=== PATIENT | male | born 1945 | race Caucasian/White ===

== ENCOUNTER → 2017-06-01 | Emergency (ER) | payer MEDICARE, OTHER ==
[~2017-06-01] VITALS: Ht 177.8 cm; Wt 113.4 kg
[~2017-06-01] MED LIST: ALBUTEROL2.5 MG/3 M INH; ASPIRIN EC81 MG PO; BELSOMRA5 MG PO; CEFPODOXIME PR200 MG PO; CIPRO500 MG PO; CONSTULOSE10 GM/15 M PO; FUROSEMIDE20 MG PO; GABAPENTIN300 MG PO; HYDROMORPHONE HC4 MG PO; K-TAB ER20 MEQ PO; LACTULOSE20 GM/30 M PO; LASIX40 MG PO; LEVAQUIN500 MG PO; MORPHINE SULFAT15 M1 PO; NORCO 5-325 TA1 EACH PO; OMEPRAZOLE20 MG PO; PHENTERMINE HCL15 MG PO; PHENTERMINE HCL30 MG PO; ROPINIROLE HC0.25 MG PO; SERTRALINE HCL25 MG PO; SPIRONOLACTONE100 MG PO; SPIRONOLACTONE25 MG PO; TIZANIDINE HCL2 M1 PO; TIZANIDINE HCL2 MG PO; TRAZODONE HCL100 MG PO; XIFAXAN550 MG PO
--- NOTE | 2017-06-01 20:30 | EKG ---
[facility] [address] [facility] [place] [address] Signed Normal sinus rhythm Left bundle branch block Abnormal ECG No previous ECGs available Confirmed by WILY CRUZ MD ([id number]) on 06/01/2017 8:30:38 PM Electronically Signed By: WILY CRUZ MD 06/01/17 2030 PATIENT NAME: ISMA DELGADILLO Electrocardiogram DATE OF : 45 PHYSICIAN: WILY CRUZ MD REPORT #: [id number] REPORT IS CONFIDENTIAL AND NOT TO BE RELEASED WITHOUT AUTHORIZATION
== END ==
LOC: ED 04:28
DX: R68.89 Other general symptoms and signs (principal); R42 Dizziness and giddiness; Z87.891 Personal history of nicotine dependence; Z88.7 Allergy status to serum and vaccine; Z88.5 Allergy status to narcotic agent; Z79.899 Other long term (current) drug therapy; Z79.82 Long term (current) use of aspirin
CPT/HCPCS: 71010; 80053; 81001; 85025; 87088; 93005; 93010; 96360; 99283; J7030

== ENCOUNTER 2017-06-20 10:52 | Inpatient (IN) | payer MEDICARE, OTHER ==
[~2017-06-20] VITALS: Ht 177.8 cm; Wt 74.1 kg
--- OUTSIDE RECORDS SUMMARY | ~2017-06-20 | XMS | Clinical Summary ---
Demographics + + + | Address | [address] | | | [address] | | | [place] [address] | + + + | Home Phone | | + + + | Preferred Language | Unknown | + + + | Marital Status | | + + + | Baptism Affiliation | JAINISM | + + + | Race | [...] | | | | | [place] [address] | | + + + + + | , DERIC BOOGIE | ECON | Unknown | | + + + + + | JOSE | ECON | Unknown | | + + + + + Care Team Providers + +------+ + | Care Owner/Photographer Name | Role | Phone | + [...] W L GORE | | 07/27/ | [id number] | | Cm *[id number] - | ngio | | | | 2013 | 275 / | | [id number]: Qty: 1 on | IMP | | | | | /[id number] | | 05/27/2012 by Isma Curiel | [...] + + | MEDICARE | MEDICA | [id number] | Medica | +- | [address] | | | RE A & | | re | [phone] | [place] [address] | | | B | | | | | + +--------+ +--------+ + + | [employer] [place] | MUTUAL | [id number] | Indemn | +- | [employer] [place] | | | OF | | ity | [phone] | [place] [address] | | | [place] | | | | [phone] | + +--------+ +--------+ + + + [...] | | | [address]: | [place] [address] | | | | | | | | | | | | | [phone] | | | | | | | [address] | | + +--------+ +--------+ + + Advance Directives Patient has advance directives. For more information, please contact:[employer] [place] [address]
[~2017-06-20 10:52] MED LIST changes: -BELSOMRA5 MG PO; -SERTRALINE HCL25 MG PO; -XIFAXAN550 MG PO
[2017-06-20] MEDS ORDERED: SERTRALINE HCL25 MG PO (11:13)
--- OUTSIDE RECORDS SUMMARY | 2017-06-20 12:25 | XMS | Clinical Summary ---
Demographics + + + | Address | [address] | | [address] | | | [place] [address] | + + + | Home Phone | | + + + | Preferred Language | Unknown | + + + | Marital Status | | + + + | Mosque Affiliation | CONFUCIANIST | + + + | Race | White | + + + | Ethnic Group | Not or | + + + Author + + + | Author | [facility] | + + + | Organization | [facility] | + + + | Address | Unknown | + + + | Phone | Unavailable | + + + Support + + + + + | Name | Relationship | Address | Phone | + + + + + | , PB DELGADILLO | ECON | [address] | | | | | [place] [address] | | + + + + + | , DERIC BOOGIE | ECON | Unknown | | + + + + + | JOSE | ECON | Unknown | | + + + + + Care Team Providers + +------+ + | Care Manager Safe Name | Role | Phone | + +------+ + | Abiel Fontenot MD | PP | | + +------+ + Allergies + + + + + + | Active Allergy | Reactions | Severity | Noted | Comments | | | | | Date | | + + + + + + | Morphine | Nausea And Vomiting | Low | 10/10/20 | | | | | | 12 | | + + + + + + Current Medications + + + +---------+------+------+-------+ | Prescription | Sig. | Disp. | Refills | Star | End | Statu | | | | | | t | Date | s | | | | | | Date | | | + + + +---------+------+------+-------+ | lactulose | Take 30 mLs by mouth | 1800 mL | 5 | 10/2 | | Activ | | (CHRONULAC) 20 | 2 Times Daily. | | | 2/20 | | e | | gram/30 mL Soln | | | | 12 | | | + + + +---------+------+------+-------+ | traZODone | Take 1 tablet by | 90 | 3 | 01/0 | | Activ | | (DESYREL) 100 mg | mouth At Bedtime. | tablet | | 4/20 | | e | | tabletIndications: | | | | 13 | | | | Insomnia | | | | | | | + + + +---------+------+------+-------+ | spironolactone | Take 1 tablet by | 90 | 3 | 01/0 | | Activ | | (ALDACTONE) 100 mg | mouth Daily. | tablet | | 4/20 | | e | | tablet | | | | 13 | | | + + + +---------+------+------+-------+ | propranolol | Take 0.5 tablets by | 90 | 3 | 01/0 | | Activ | | (INDERAL) 20 mg | mouth 2 Times Daily. | tablet | | 4/20 | | e | | tabletIndications: | | | | 13 | | | | Cirrhosis of liver | | | | | | | | (HCC) | | | | | | | + + + +---------+------+------+-------+ | omeprazole | Take 1 capsule by | 90 | 3 | 01/0 | | Activ | | (PRILOSEC) 20 mg | mouth Daily. | capsule | | 4/20 | | e | | capsule | | | | 13 | | | + + + +---------+------+------+-------+ | furosemide (LASIX) | Take 1 tablet by | 90 | 3 | 01/0 | | Activ | | 40 mg tablet | mouth Daily. | tablet | | 12/04 | | e | | | | | | 13 | | | + + + +---------+------+------+-------+ Active Problems + + + | Problem | Noted Date | + + + | Hepatic encephalopathy (HCC) | 05/30/2012 | + + + | S/P TIPS (transjugular intrahepatic portosystemic shunt) | 05/28/2012 | + + + + + | Overview: Started on lactulose and rifaxamin | + + + + + | Hemorrhagic shock | 05/27/2012 | + + + | Acute posthemorrhagic anemia | 05/27/2012 | + + + | Normocytic anemia | 05/26/2012 | + + + + + | Overview: -Chronic issue for patient per chart review, though | | has been Macrocytic in the past-Likely related to acute bleed. | | -Previously worked up for his macrocytic anemia in 03/2011with | | B12 levels normal (862), folate levels decreased | | (3.9).Plan:Monitor H&H closelyWill check labs in our facility now | | and in amConsider iron studies but may be better in out patient | | setting. | + + + + + | Melena | 05/26/2012 | + + + | GI bleed | 05/26/2012 | + + + | Portal hypertension with esophageal varices (HCC) | 05/26/2012 | + + + + + | Overview: Begun on propranolol for Essential HTN and portal | | HTN in 2011Grade II esophageal varices | + + + + + | Cirrhosis, alcoholic (HCC) | 05/26/2012 | + + + + + | Overview: Imaging evidence on 2010 US | | Portal HTN with h/o ascites, esophageal varices | | H/o alcoholism, quit 1 year ago | + + + + + | Hematemesis | 05/25/2012 | + + + | HTN (hypertension) | 04/10/2011 | + + + + + | Overview: -Thought to be multifactorial essential HTN +/- | | EtOH component-Started on Propranolol in 2010 and had good | | response.-Established with PCP who is now following | | carePlan:Monitor blood pressuresContinue home medications once HD | | stable- will hold tonight in setting of bleed. | |Continue home medications once HD stable- will hold tonight in setting of bleed. | + + + + + | History of Hepatitis, alcoholic | 04/09/2011 | + + + + + | Overview: -Chronic issue for patient, based on chart review | | does not have viral hepatitis diagnosis-Multiple co-morbidities | | associated with EtOH hepatitis including question of cirrhosis- | | per out patient visits there is apparently some question of | | whether patient has true cirrhosis vs slow to resolve EtOH | | hepatitis. -No history of varices that I can find in | | chart.-Patient denies current EtOH abuse. -There are chart | | records from this year indicating that he is being followed as | | out pt by Dr. Carlos Capps-LFT's were WNL at OSH, Guero guy was | | elevated slightly at 1.9, INR at OSH was 1.2Plan:Will recheck | | labs in houseAppears chronic issues resolving at this time will | | monitor | + + + + + | History of Thrombocytopenia | 04/08/2011 | + + + + + | Overview: -Patient has history of thrombocytopenia on | | previous admissions-Thought secondary to his chronic EtOH abuse | | and EtOH cirrhosis | + + + + + | Anemia, macrocytic | 04/08/2011 | + + + | Unspecified hereditary and idiopathic peripheral neuropathy | 08/08/2004 | + + + + + | Overview: neuro consult 10/15;w/u (-) | + + Resolved Problems + + + + | Problem | Noted | Resolved | | | Date | Date | + + + + | Acute respiratory failure (HCC) | 05/27/20 | | | | 12 | 2 | + + + + | Erythema | 04/10/20 | | | | 11 | 2 | + + + + + + | Overview: Lower R extremity erythema and warmth surrounding | | 1cm x 2cm scab on pretibial area suspicious for acute cellulitis | | noted 04/10. Pt denies pain, tenderness to palpation, fever, or | | chills. With active ascites and cirrhosis, low threshold for | | treatment if resolution does not occur with leg elevation. 04/11 | | swelling improved and remained non-tender. Continue to | | monitor.-Elevate leg-Begin empiric ABX (Keflex) if not resolved | | by 04/12 AM | + + + + + + | Cirrhosis of liver (HCC) | 04/08/20 | | | | 11 | 2 | + + + + + + | Overview: -Appears as though this dx was made based on | | imaging of abdomen, do not see record of bx (Abdominal US on day | | of admission showed a coarse hyperechogenic liver parenchyma with | | suspicion for macronodular cirrhosis) Hepatitis serology in | | past all negative-Thought 2/2 chronic EtOH abuse though based on | | patients out patient notes there has been some discussion by his | | PCP that this is less likely to be cirrhosis and more likely to | | be slowly resolving EtOH hepatitis. -Has history of admission | | here with complications of ascites, LLE, elevated LFT's, | | macrocytic anemia, thrombocytopenia, decreased albumin and | | coagulopathy -Previous MELD score in 2010 admission was 17 (6% | | mortality in 3 mo period). Current MELD score -Started Lasix | | and Aldactone 04/10/11 with good response, as well as Propranolol | | - these are still listed as his out patient meds. Plan: | + + + + + + | Alcohol abuse | 04/08/20 | | | | 11 | 2 | + + + + + + | Overview: -Patient had long, chronic history of alcohol abuse | | since age of 15 (16 oz Vodka daily) with history of alcohol | | withdrawal. -Has had complications including HTN and those | | mentioned (anemia, thrombocytopenia, coagulopathy, ?cirrhosis, | | hepatitis)-Reportedly clean since previous admission in this | | facility in 03/2011Plan: | + + + + + + | Coagulopathy (HCC) | 04/08/20 | | | | 11 | 2 | + + + + + + | Overview: Elevated INR of 1.4 on admission and increased to | | 1.5 on 04/11. Likely secondary to hepatic dysfunction from | | underlying cirrhosis. No signs of active bleeding or procedures | | planned to warrant reversal. Will monitor as outpatient. | + + + + + + | RUQ abdominal pain | 04/08/20 | | | | 11 | 2 | + + + + + + | Overview: 2 weeks of sharp intermittent diffuse abdominal | | pain triggered by movement and alcohol ingestion- not associated | | with eating. Abdominal US 04/09 showed normal appearance of | | gallbladder and is negative for gallstones making Chololithiasis | | and Cholecystitis less likely. Most likely secondary to enlarged | | liver pushing on capsule as well as abdominal distension. SBP | | ruled out, pancreatitis ruled out with normal lipase. Pain | | improved since paracentesis and was resolved on 04/11. | + + + + + + | SOB (shortness of breath) | 04/08/20 | | | | 11 | 2 | + + + + + + | Overview: SOB on presentation which was likely multifactorial | | from mechanical from abdominal distension causing restriction of | | lung volumes and volume overload 2/2 liver disease. Both | | improved after therapeutic tap. Original CXR on 04/08 was clear | | but was a poor quality film. 2 view CXR from 04/10 showed | | possible RLL consolidation c/w PNA. The morning of 04/11 the SOB | | had completely resolved and he was satting well on RA. No cough, | | no fever, lungs clear on exam and no elevated WBC to suggest | | PNA. Antibiotics not warranted currently but will start empiric | | ABX if becomes febrile or increasing cough/WBC. This was | | resolved by 04/11 | + + Immunizations + + + + | Name | Dates Previously Given | Next Due | + + + + | Influenza | 06/04/2012 (Deferred: Patient Refused) | | + + + + | Pneumovax | 04/11/2011 | | + + + + | Tdap | 04/25/2011 | | + + + + Family History + + +------+ + | Medical History | Relation | Name | Comments | + + +------+ + | Diabetes | Brother | | | + + +------+ + | Diabetes | Father | | | + + +------+ + | Heart Failure | Father | | | + + +------+ + | Arthritis | Mother | | | + + +------+ + + +------+ + + | Relation | Name | Status | Comments | + +------+ + + | Brother | | | | + +------+ + + | Father | | | | + +------+ + + | Mother | | | | + +------+ + + Social History + +-------+ +--------+------+ | Tobacco Use | Types | Packs/Day | Years | Date | | | | | Used | | + +-------+ +--------+------+ | Former Smoker | | | | | + +-------+ +--------+------+ + +---+---+---+ | Smokeless Tobacco: | | | | | Never Used | | | | + +---+---+---+ + + +---------+ + | Alcohol Use | Drinks/We | oz/Week | Comments | | | ek | | | + + +---------+ + | No | | | In remission for >1 year | + + +---------+ + + + + | Sex Assigned at | Date Recorded | | | | + + + | Not on file | | + + + Last Filed Vital Signs + + + + | Vital Sign | Reading | Time Taken | + + + + | Blood Pressure | 112/68 | 07/26/2012 2:46 PM PST | + + + + | Pulse | 60 | 07/26/2012 2:46 PM PST | + + + + | Temperature | 36.8 C (98.2 F) | 07/26/2012 2:46 PM PST | + + + + | Respiratory Rate | 15 | 07/26/2012 2:46 PM PST | + + + + | Oxygen Saturation | 99% | 07/26/2012 2:46 PM PST | + + + + | Inhaled Oxygen | - | - | | Concentration | | | + + + + | Weight | 118.3 kg (260 lb | 07/26/2012 2:46 PM PST | | | 12.8 oz) | | + + + + | Height | 177.8 cm (5' 10") | 07/26/2012 2:46 PM PST | + + + + | Body Mass Index | 37.42 | 07/26/2012 2:46 PM PST | + + + + Plan of Treatment + + + + + | Health Maintenance | Due Date | Last Done | Comments | + + + + + | Colon Cancer | | | | | Screening | 5 | | | + + + + + | Zoster Vaccine | | | | | | 5 | | | + + + + + | AAA Screening | | | | | | 0 | | | + + + + + | Pneumo 65+ (2 of - | | 04/11/2011 | | | PCV13) | 2 | | | + + + + + | IMM Influenza (#1) | | | | | | 7 | | | + + + + + | Tetanus | | 04/25/2011 | | | | 1 | | | + + + + + Implants + +--------+------+ +--------+--------+--------+ | Implanted | Type | Area | Manufacture | Device | Expira | Model | | | | | r | | tion | / | | | | | | Identi | Date | Serial | | | | | | fier | | / Lot | + +--------+------+ +--------+--------+--------+ | Stent Viatorr 10mm X 5cm X 75 | Cath/A | | W L GORE | | 07/27/ | [id number] | | Cm *[id number] - | ngio | | | | 2013 | 275 / | | [id number]: Qty: 1 on | IMP | | | | | /[id number] | | 05/27/2012 by Isma Curiel | Stents | | | | | 60 | | CMD | | | | | | | + +--------+------+ +--------+--------+--------+ Results Not on filefrom Last 3 Months Insurance + +--------+ +--------+ + + | Payer | Benefi | Subscriber | Type | Phone | Address | | | t Plan | ID | | | | | | / | | | | | | | Group | | | | | + +--------+ +--------+ + + | MEDICARE | MEDICA | [id number] | Medica | +- | [address] | | | RE A & | | re | [phone] | [place] [address] | | | B | | | | | + +--------+ +--------+ + + | [employer] [place] | MUTUAL | [id number] | Indemn | +- | [employer] [place] | | | OF | | ity | [phone] | [place] | | | [place] | | | | [phone] | + +--------+ +--------+ + + + +--------+ +--------+ + + | Guarantor Name | Accoun | Relation to | Date | Phone | Billing Address | | | t Type | Patient | of | | | | | | | | | | + +--------+ +--------+ + + | ISMA DELGADILLO | Person | Self | [birth year] | Work: | [address] | | | [address] | | 1945 | [phone] | [address] [place], | | | [place] | | | [phone]: | [place] [address] | | | | | | | | | | | | | [phone] | | | | | | | [phone] | | + +--------+ +--------+ + + Advance Directives Patient has advance directives. For more information, please contact:[email or web address] [place] [address]
--- OUTSIDE RECORDS SUMMARY | 2017-06-20 12:26 | XMS | Clinical Summary ---
Demographics + + + | Address | [address] | | | [address] | | | [place] [address] | + + + | Home Phone | | + + + | Preferred Language | Unknown | + + + | Marital Status | | + + + | Adventism Affiliation | SIKHISM | + + + | Race | [...] | | | | | [place] [address] | | + + + + + | , DERIC BOOGIE | ECON | Unknown | | + + + + + | JOSE | ECON | Unknown | | + + + + + Care Team Providers + +------+ + | Care Tool Lapper Hand Name | Role | Phone | + [...] W L GORE | | 07/27/ | [id number] | | Cm *[id number] - | ngio | | | | 2013 | 275 / | | [id number]: Qty: 1 on | IMP | | | | | /[id number] | | 05/27/2012 by Isma Curiel | [...] + + | MEDICARE | MEDICA | [id number] | Medica | +- | [address] | | | RE A & | | re | [phone] | [place] [address] | | | B | | | | | + +--------+ +--------+ + + | [employer] [place] | MUTUAL | [id number] | Indemn | +- | [employer] [place] | | | OF | | ity | [phone] | [place] | | | [place] | | | | [phone] | + +--------+ +--------+ + + + [...] | | | [address]: | [place] [address] | | | | | | | | | | | | | [phone] | | | | | | | [address] | | + +--------+ +--------+ + + Advance Directives Patient has advance directives. For more information, please contact:[employer] [facility] [place] [address]
--- NOTE | 2017-06-20 20:21 | NUR ---
72YR OLD MAN ADMITTED FROM ER TO ROOM 108 VIA STRETCHER. PT IS ALERT, ORIENTED TO PLACE. CONFUSED TO TIME AND EVENTS, SL INFUSING INTO R HAND. ARANDA CATHETER IN PLACE WITH YELLOW URINE, PT C/O PAIN FROM CATHETER AND WANTS OUT. ORIENTED TO ROOM AND CALL LIGHT. BED AQLARM IS ACTIVE FOR PT SAFETY.
--- NOTE | 2017-06-20 20:22 | EKG ---
[facility] [address] [facility] [place] [address] Signed Normal sinus rhythm Left bundle branch block Abnormal ECG When compared with ECG of 01-JUN-2017 05:24, T wave inversion now evident in Inferior leads Confirmed by WILY CRUZ MD ([id number]) on 06/20/2017 8:22:00 PM Electronically Signed By: WILY CRUZ MD 06/20/172021 PATIENT NAME: ISMA DELGADILLO Electrocardiogram DATE OF : 45 PHYSICIAN: WILY CRUZ MD REPORT #: [id number] REPORT IS CONFIDENTIAL AND NOT TO BE RELEASED WITHOUT AUTHORIZATION
--- NOTE | 2017-06-20 20:24 | NUR ---
SPOKE WITH DR CRUZ AND OK TO REMOVE ROSI. DC'D AT THIS TIME. RT HERE TO DRAW BLOOD FOR ABG.
--- NOTE | 2017-06-20 21:04 | NUR ---
PT ALERT IN GOOD SPIRITS, SBA UP TO BSC, LG BM, VOIDED 150ML PINK URINE AFTER ARANDA DC'D. TAKING SIPS OF WATER WITHOUT ISSUE. TOOK HS MEDS NO PROBLEMS. RESTING COMFORTABLY. 02 2L/NC. BED ALARM ACTIVE FOR PT SAFETY. CALL LIGHT IN EASY REACH.
--- NOTE | 2017-06-20 21:35 | NUR ---
PT RESTING QUIETLY, CONT. PULSE OXIMETER W O2 2L/NC @ 94%. CALL LIGHT IN EASY REACH.
--- NOTE | 2017-06-20 22:00 | NUR ---
PT PLACED ON BIPAP BY RT @ THIS TIME. pCO2 70.
--- NOTE | 2017-06-20 23:00 | NUR ---
PT AWAKE, REMOVED BIPAP, STATES HE NEEDS A BREAK FOR A WHILE. O2 @ 2L/NC REPLACED. CALL LIGHT IN EASY REACH. BED ALARM IS ACTIVE FOR ADDITIONAL SAFETY.
--- NOTE | 2017-06-21 01:03 | NUR ---
PT AWAKE AND INCREASINGLY RESTLESS. STATES HE NEEDS HIS BACK PAIN MEDICINE. CALL PLACED TO DR CRUZ AND RECIEVED ORDER FOR DILAUDID 0.25MG IV Q 6HRS PRN PAIN AND TO HOLD IF CONFUSED OR RESP < 8. RT IN TO SEE PT AND HE AGREED TO PUT BIPAP BACK ON.
--- NOTE | 2017-06-21 01:51 | NUR ---
REQUESTING HELP TO CALL . ASSISTED WITH PHONE, HE CALLED AND LEFT MSG REQUESTING SHE COME SIT AND COMFORT HIM. DENIES ANY NEEDS. STATES HE JUST CANT SLEEP. CONT. TO REFUSE TO WEAR BIPAP. OXIMETER 95% ON O2 @ 2L/NC.
--- NOTE | 2017-06-21 02:55 | NUR ---
SBA TO BSC, 3RD LARGE LOOSE STOOL. VOIDED IN COMMODE. PT CONT. TO BE ANXIOUS WITH JERKING AND TWITCHING. UNCHANGED SINCE ADMISSION FROM ER. USING CALL LIGHT FOR ASSIST.
--- NOTE | 2017-06-21 05:07 | NUR ---
HAS NOT SLEPT, ONE PERSON ASSIST UP TO BSC. SMALL LOOSE STOOL AND URINE MIXED. BLADDER SCANNED FOR RESIDUAL OF 54ML. USING CALL LIGHT APPROP FOR ASSISTANCE. CONT. TO HAVE TWITCHING AND JERKING OF LIMBS. PT STATES HE HAS RESTLESS LEG SYNDROME.
--- NOTE | 2017-06-21 06:40 | NUR ---
PT HAS BEEN AWAKE MOST OF THE NIGHT, ANXIOUS, MUSCLE TWITCHING AND JERKING, KEEPS SAYING HE NEEDS HIS DILAUDID TABS FOR RESTLESS LEGS. HIS SPEECH IS MUCH CLEARER AND IS ORIENTED TO PLACE AND SITUATION. COOPERATIVE WITH CARE, UP TO BSC FREQUENTLY WITH SBA. USING CALL LIGHT APPROP.
--- NOTE | 2017-06-21 07:52 | NUR ---
CURT HAS CALLED TWICE TO USE THE RESTROOM, ONECE HE WENT THE OTHER NO RESULTS. TRYING OT ENCOURAGE HIM TO CLEAN HIMSELF UP HIS SAYS HE IS CAPABLE OF DOING THAT.
--- NOTE | 2017-06-21 11:09 | NUR ---
Medications reconciled using pharmacy records and interview with patient and his
--- NOTE | 2017-06-21 13:51 | NUR ---
PT LYING IN BED. APPEARS MUCH MORE RELAXED. NO MUSCLE TWITCHING OBSERVED NOW. MAGNESIUM RIDER INFUSING NOW. PT SPEAKING CLEARLY.
--- NOTE | 2017-06-21 17:47 | NUR ---
pt very anxious and agitated this morning. requip, dilaudid, gabapentin given and patient much more relaxed the rest of the day. 1PA/sba to bathroom. 2L 02 via NC. LR @ 50-- december saline lock after bag finishes. watery stool from lactulose. working with physical therapy. Mag riders x3 (MAG 1.5). Bipap if patient agrees. Regular diet.
--- NOTE | 2017-06-21 19:12 | NUR ---
RECEIVED REPORT FRON RN. PATIENT CURRENTLY IN BATHROOM.
--- NOTE | 2017-06-21 19:54 | NUR ---
PATIENT REPORTS NAUSEA AFTER AMBULATING TO BATHROOM. PRN ZOFRAN GIVEN PER EMAR. ALSO REPORTS 5/10 PAIN "ALL OVER," 2MG PRN DILAUDID GIVEN PER EMAR. PATIENT DENIES OTHER NEEDS AT THIS TIME. CALL LIGHT WITHIN REACH.
--- NOTE | 2017-06-21 21:45 | NUR ---
PATIENT IS RESTING COMFORTABLY IN BED, BREATHING IS EVEN AND UNLABORED ON 2L O2 VIA NC. CALL LIGHT WITHIN REACH.
--- NOTE | 2017-06-21 22:17 | NUR ---
PATIENT AMBULATED TO BATHROOM WITH SBA/NON-SLIP SOCKS. DENIES FURTHER NEEDS AT THIS TIME. HAD PATIENT USE IS X1O WITH A MAXIMUM OF 1240 ML INSPIRED, ALSO USED ACCAPELLA WITH PATIENT HAVING DRY, NON-PRODUCTIVE COUGH. CONTINUES TO REFUSE BIPAP. CALL LIGHT WITHIN REACH.
--- NOTE | 2017-06-22 01:11 | NUR ---
PATIENT REPORTS 4/10 PAIN "ALL OVER" AND 2 MG PRN DILAUDID GIVEN PER EMAR. DENIES OTHER NEEDS AT THIS TIME. USED IS WITH MAX OF 1250 ML INSPIRED. CALL LIGHT WITHIN REACH.
--- NOTE | 2017-06-22 03:12 | NUR ---
PATIENT RESTING COMFORTABLY IN BED, BREATHING IS EVEN AND UNLABORED ON 2L O2 VIA NC. REPORTS 3/10 PAIN, BUT DENIES NEED FOR PAIN MEDICATION. ASSESSMENT DONE, CALL LIGHT WITHIN REACH.
--- NOTE | 2017-06-22 04:49 | NUR ---
PATIENT'S NIGHT WAS UNEVENTFUL. HE HAS BEEN RESTING COMFORTABLY IN BED THROUGHOUT SHIFT. VSS, PAIN HAS BEEN WELL CONTROLLED WITH PRN DILAUDID. HE IS A SBA, IV FLUIDS RUNNING. NO ACUTE CHANGES FROM BEGINNING OF SHIFT ASSESSMENT.
--- NOTE | 2017-06-22 05:03 | NUR ---
PATIENT AMBULATED TO BATHROOM WITH SBA/NON-SLIP SOCKS. DENIES PAIN OR NAUSEA AT THIS TIME. HAS NO NEEDS AT THIS TIME. CALL LIGHT WITHIN REACH.
--- NOTE | 2017-06-22 07:15 | NUR ---
REPORT GIVEN FROM MEENAKSHI RN. GOT INTRODUCED TO PATIENT. SALINE LOCKED PATIENT DUE TO BEING END OF BAG. PLAN OF CARE DISCUSSED WITH PATIENT.
--- NOTE | 2017-06-22 07:49 | NUR ---
patient assisted to chair from br. tolerating movement well. patient lungs clear. murmur ascultated. abd active. teds placed on. patient reports ordered breakfast. in room. patient reports not having bm since yesterday evening. rt in room to talk about bipap after breakfast.
--- NOTE | 2017-06-22 08:20 | NUR ---
PATIENT SITTING UP EATING BREAKFAST. LINENS CHANGED. I PUT GREGORY GRIER ON HIM.
--- NOTE | 2017-06-22 08:22 | NUR ---
MAYBE SHOWER LATER.
[2017-06-22] MEDS ORDERED: XIFAXAN550 MG PO (09:02)
[2017-06-22] MEDS ORDERED: HYDROMORPHONE HC4 MG PO (09:03)
[2017-06-22] MEDS ORDERED: GABAPENTIN300 MG PO (09:04)
--- NOTE | 2017-06-22 09:08 | NUR ---
ROUNDED WITH DR. CRUZ. INFORMATIONAL PACKED GIVEN TOPATIENT PER DR. CRUZ. FOLLOW UP APPOINTMENT MADE. AND PATIENT GIVEN INFORMATION. PATIENT TOLERATED BREAKFAST WELL.
--- NOTE | 2017-06-22 09:43 | NUR ---
PHARMACY IN ROOM. ASSISTED WITH EDUCATION ON MEDICATION. EMPTY MED CUP GIVEN WITH EXACT AMOUNT OF LACULOSE DOSE MARKED.
--- NOTE | 2017-06-22 10:40 | NUR ---
PATIENT DISCHARGE. ASSISTED INTO OWN CLOTHING. ASSISTED TO WC. RONAN KAPADIA TOOK OUT TO CAR.
== END 2017-06-22 10:40 | disposition home or self-care (01) | DRG 442 ==
LOC: ED 10:52 → MS 18:44
PROVIDERS: ADMIT Internal Medicine
DX: K72.00 Acute and subacute hepatic failure without coma (principal); J96.11 Chronic respiratory failure with hypoxia; F11.20 Opioid dependence, uncomplicated; K29.00 Acute gastritis without bleeding; E86.0 Dehydration; K70.30 Alcoholic cirrhosis of liver without ascites; D73.2 Chronic congestive splenomegaly; G89.29 Other chronic pain; G47.33 Obstructive sleep apnea (adult) (pediatric); G25.81 Restless legs syndrome; F32.89 Other specified depressive episodes; I35.0 Nonrheumatic aortic (valve) stenosis; F10.21 Alcohol dependence, in remission
CPT/HCPCS: 36415; 36600; 71010; 74177; 76705; 80053; 81001; 82140; 82803; 83735; 85025; 85610; 93005; 93010; 94660; 94667; 94668; 94762; J1170; J2405; J3475; J7030; J7120; Q9967

== ENCOUNTER 2017-07-03 14:29 | Emergency (ER) | payer MEDICARE, OTHER ==
[~2017-07-03] VITALS: Ht 177.8 cm; Wt 74.1 kg
[~2017-07-03 14:29] MED LIST changes: +SERTRALINE HCL25 MG PO; +XIFAXAN550 MG PO
[2017-07-03] MEDS ORDERED: BELSOMRA5 MG PO (17:20)
== END 2017-07-03 17:34 | disposition home or self-care (01) ==
LOC: ED 14:29
DX: R41.0 Disorientation, unspecified (principal); G47.00 Insomnia, unspecified; G25.81 Restless legs syndrome; S40.022A Contusion of left upper arm, initial encounter; S40.021A Contusion of right upper arm, initial encounter; S80.12XA Contusion of left lower leg, initial encounter; S80.11XA Contusion of right lower leg, initial encounter; X58.XXXA Exposure to other specified factors, initial encounter; Z88.5 Allergy status to narcotic agent; Z88.8 Allergy status to other drugs, medicaments and biological substances; Z79.899 Other long term (current) drug therapy; Z79.2 Long term (current) use of antibiotics
CPT/HCPCS: 70450; 80053; 81001; 85025; 96374; 96376; 99284; J2060

== ENCOUNTER 2017-10-10 09:29 | Inpatient (IN) | payer MEDICARE, OTHER ==
[~2017-10-10] VITALS: Ht 177.8 cm; Wt 123.4 kg
[~2017-10-10 09:29] MED LIST changes: +BELSOMRA5 MG PO; +REQUIP0.5 MG PO; -ROPINIROLE HC0.25 MG PO
[2017-10-10] MEDS ORDERED: POTASSIUM99 M1 PO (09:48)
[2017-10-10] MEDS ORDERED: MAGNESIUM250 M1 PO (09:49)
[2017-10-10] MEDS ORDERED: CYCLOBENZAPRINE10 MG PO (09:50)
[2017-10-10] MEDS ORDERED: NEURONTIN100 MG PO (09:53)
--- NOTE | 2017-10-10 14:30 | NUR ---
RECIEVER REPORT FROM BUD PORRAS. PT CAME TO THE FLOOR VIA STRETCHER. PT WAS A/O. SBA UP TO THE BATHROOM. REPORTS NO PAIN NO SOB AT THIS TIME. FAMILY AT BEDSIDE. ASSESSMENT COMPLETE AND MEDICATION ADMINISTERED. PT AND FAMILY REQUEST EDUCATION ON CHF, THIS IS A NEW DIAGNOSIS. TELE STARTED AND FLUID RESTRICTIONS IN PLACE.
[2017-10-10] MEDS ORDERED: PROPRANOLOL HCL10 MG PO (16:38)
--- NOTE | 2017-10-10 16:51 | NUR ---
Medications reconciled through pharmacy records and interview with patient's
--- NOTE | 2017-10-10 17:00 | NUR ---
PT TRYING TO WALK TO BATHROOM ALONE. RE-EDUCATED ON SAFETY AND FALLS. PT AND ORDERED DINNER. RE-EDUCATED ON FLUID RESTRICTIONS. PT UP TO THE BATHROMM MULTIPLE TIMES. GOOD OUTPUT. CALL LIGHT WITHIN REACH. NO OTHER NEEDS AT THIS TIME.
--- NOTE | 2017-10-10 18:31 | NUR ---
PT IS SITTING UP IN BED WITH CALL LIGHT IN REACH PT ASKED FOR ICE WATER
--- NOTE | 2017-10-10 18:37 | NUR ---
NEW CHF DIAGNOSIS. ADMITTED TODAY, PT IS REALLY CONCERNED ABOTU CHF. EDUCATION NEEDED. BNP WAS 352. PT HAS BRUISES ON BACK FROM PREVIOUS FALLS. PT IS SBA. WILL TRY TO GO TO BATHROOM ALONE. FLUID RESTRICTION OF 1600. CARDIAC DIET. PT IS ON LACTULOSE FOR CIRRHOSIS HX.PT IS A/O, THEN OTHER TIMES LETHARGIC AND SLURRING WORDS. PT IS ON LASIX TID.
--- NOTE | 2017-10-10 19:00 | NUR ---
RECEIVED REPORT FROM RN. PATIENT IS SITTING IN BED READING EDUCATION MATERIALS. DENIES NEEDS AT THIS TIME. CALL LIGHT WITHIN REACH.
--- NOTE | 2017-10-10 19:53 | NUR ---
ASSISTED PATIENT TO BATHROOM WITH SBA, TOLERATED WELL, NO SHORTNESS OF BREATH, STEADY GATE. DENIES FURTHER NEEDS. NOW RESTING IN BED COMFORTABLY, BREATHING IS EVEN AND UNLABORED. ASSESSMENT DONE. CALL LIGHT WITHIN REACH.
--- NOTE | 2017-10-10 22:08 | NUR ---
PATIENT RESTING IN BED COMFORTABLY, BREATHING IS EVEN AND UNLABORED. DENIES NEEDS AT THIS TIME. CALL LIGHT WITHIN REACH, BED ALARM ON.
--- NOTE | 2017-10-11 00:39 | NUR ---
PATIENT RESTING IN BED, REPORTS "I CAN'T SLEEP BECAUSE OF MY COUGH." EDUCATED PATIENT ABOUT ILLNESS, OFFERED HARD CANDY FOR COMFORT. DENIES FURTHER NEEDS. SITTING ON EDGE OF BED NOW, BREATHING IS EVEN AND UNLABORED. CALL LIGHT WITHIN REACH, BED ALARM ON.
--- NOTE | 2017-10-11 03:46 | NUR ---
PATIENT RESTING COMFORTABLY IN BED, BREATHING IS EVEN AND UNLABORED. DENIES NEEDS AT THIS TIME. CALL LIGHT WITHIN REACH, BED ALARM ON.
--- NOTE | 2017-10-11 04:49 | NUR ---
PATIENT'S NIGHT WAS UNEVENTFUL. HE HAS BEEN RESTING IN BED THROUGHOUT SHIFT. VSS, URINE OUTPUT QS. NO COMPLAINTS OF PAIN. ALERT AND ORIENTED, REQUIRES BED ALARM. PATIENT'S HEART RATE HAS BEEN WELL CONTROLLED. LUNGS ARE CLEAR, SATS APPROPRIATE ON ROOM AIR, PATIENT REPORTS OCCASIONAL NON-PRODUCTIVE COUGH. SBA. IV IS SALINE LOCKED. NO ACUTE CHANGES.
--- NOTE | 2017-10-11 06:40 | NUR ---
PATIENT RESTING COMFORTABLY IN BED, SPEAKING ON PHONE WITH . REPOSITIONED PATIENT FOR EASIER BREATHING. PATIENT DENIES FEELING SOB. NO NEEDS AT THIS TIME. CALL LIGHT WITHIN REACH.
--- NOTE | 2017-10-11 07:46 | NUR ---
RECIEVED BEDSIDE REPORT FROM CHIQUITA LOMELI. PT AWAKE AND ALERT IN BED. PT ORIENTED X 3, SLIGHTLY SLURRED WORDS. PT HAD WEIGHT LOSS OVER NIGHT. HR WELL CONTROLED PER TELE, NSR. PT C/O COUGH, AFEBRILE, NO CHILLS, NO N/V.
--- NOTE | 2017-10-11 08:34 | NUR ---
pateint has been up and used the restroom, he has had breakfast and the board was updated.
--- NOTE | 2017-10-11 10:02 | NUR ---
PT'S VS AND I&O'S TAKEN AND DOCUMENTED. PT HAS NO NEEDS AT THIS TIME. PT GIVEN NEW GOWN. PT HAS NO OTHER NEEDS AT THIS TIME. INFORMED PT TO CALL IF HE THINKS OF ANYTHING. CALL LIGHT IS IN REACH.
--- NOTE | 2017-10-11 10:18 | NUR ---
SPOKE WITH DR CRUZ RE: PT CONDITION, HACKING COUGH. DR CRUZ WILL ASSESS HIS LUNGS AND DECIDE PLAN WITH LASIX. WILL ADD COUGH MEDS.
--- NOTE | 2017-10-11 11:39 | NUR ---
REPOSTIONED PT IN BED. SET UP PT FOR LUNCH. PT HAS ALL BELONGINGS IN REACH.
--- NOTE | 2017-10-11 14:03 | NUR ---
PATIENT WAS IN BED SITTING ON THE EDGE, HE HAD VISITORS, HE HAD VS DONE, NEEDED NO OTHER ASSISTANCE AT THE TIME.
--- NOTE | 2017-10-11 14:06 | EKG ---
[facility] [address] [place] [address] Signed Sinus rhythm with marked sinus arrhythmia Left bundle branch block Abnormal ECG When compared with ECG of 20-JUN-2017 11:14, T wave inversion no longer evident in Inferior leads Confirmed by WILY CRUZ MD ([id number]) on 10/11/2017 2:06:01 PM Electronically Signed By: WILY CRUZ MD 10/11/17 1406 PATIENT NAME: ISMA DELGADILLO JAIRO Electrocardiogram DATE OF : 45 PHYSICIAN: WILY CRUZ MD REPORT #: [id number] REPORT IS CONFIDENTIAL AND NOT TO BE RELEASED WITHOUT AUTHORIZATION
--- NOTE | 2017-10-11 16:48 | NUR ---
PT UP WALKING THE HALLS WITH FRIEND.
--- NOTE | 2017-10-11 18:00 | NUR ---
PATEINT HAD DINNER, VS TAKEN NEEDED NOTHING ELSE AT THE MOMENT
--- NOTE | 2017-10-11 20:30 | NUR ---
PATIENT RESTING IN BED DENIES ANY PAIN, REPORTS CONGESTIVE COUGH. EXPIRATORY WHEEZE THROUGHOU. POSITIVE POWEL TONES. NO APPARENT DISTRESS NOTED. PERIPHERAL PULSES PALPABLE, TRACE EDEMA NOTED ON THE LOWER EXTREMITIES. IV SITE PATENT. CALL LIGHT IN REACH. BED ALARM ON. WILL CONTINUE TO MONITOR
--- NOTE | 2017-10-11 23:06 | NUR ---
ASSISTED PATIENT TO BATHROOM, THEN BACK TO BED. BED ALARM ON. CALL LIGHT IN REACH
--- NOTE | 2017-10-12 00:13 | NUR ---
ASSISTED PATIENT TO BATHROOM. THEN BACK TO BED. BED ALARM ON. WILL CONTINUE TO MONITOR. CALL LIGHT IN REACH
--- NOTE | 2017-10-12 01:04 | NUR ---
PT WITH INCREASED SOB, ANXIOUS, UP AND DOWN FROM BED SEVERAL TIMES, LUNGS ARE DIM WITH LONG EXPIRATORY WHEEZE. OXIMETER TO LOW 80'S IF HE TAKES O2 OFF. ASKED RT TO COME TO ROOM, NEB TREATMENT GIVEN WITH NO RELIEF. CALL PLACED TO DR HEREDIA AND ORDER FOR ONE TIME DOSE LASIX 20MG IV NOW.
--- NOTE | 2017-10-12 02:20 | NUR ---
ASSISTED PATIENT TO BATHROOM. ASSISTED PATIENT BACK TO BED. PATIENT DENIES PAIN. NO SOB. STILL WHEEZING. CALL LIGHT IN REACH
--- NOTE | 2017-10-12 03:09 | NUR ---
ASSISTED PATIENT TO BATHROOM, THEN BACK TO BED SAFELY. PATIENT CALLED APPROPRIATELY. CALL LIGHT IN REACH.
--- NOTE | 2017-10-12 05:53 | NUR ---
PATIENT HAS BEEN UP TO THE BATHROOM ALMOST EVERY 10MINUTES TO VOID. MID SHIFT PATIENT HAD INCREASED WHEEZING/ SOB AND WAS SOMEWHAT ANXIOUS. NEB TX WAS ADMINISTERED PER RT WITH NO IMPROVEMENT. DR BUENROSTRO WAS NOTIFIED AND ORDER WAS GIVEN FOR 2OMG IV LASIX ONCE. NEW IV SITE ESTABLISHED AFTER ACCIDENTALLY PULLED THE IV OUT. PATIENT DENIES PAIN. SOB WITH ACTIVITIES. CURRENTLY ON 1L OF 02 VIA GA. ECHO TO BE DONE TODAY.
--- NOTE | 2017-10-12 06:58 | NUR ---
PATIENT RESTING IN BED AT THIS TIME. WAS UP TO BATHROOM.
--- NOTE | 2017-10-12 07:48 | NUR ---
PT IS UP TO THE CHAIR FOR BREAKFAST THIS MORNING. PTS ONLY REQUEST IS FOR THE HEAT TO BE TURNED UP. HEAT WAS TURNED UP BY DIETARY. PT IS AWARE TO CALL IF HE THINKS OF ANYTHING HE NEEDS. CALL LIGHT IS IN REACH.
--- NOTE | 2017-10-12 08:05 | NUR ---
MORNING ASSESSEMENT DONE. PT UP AT BEDSIDE EATING BREAKFAST. AT BEDSIDE. PT COOPERATIVE AND TELLING STORIES ABOUT [place]. PT VERBALIZES "FEELING A LITTLE BETTER" THIS MORNING BUT CONTINUES TO NOTE DIFFICULTY BREATHING AND "PAIN WITH DEEP BREATHS." PT IS WEARING O2, 2L NC WHILE EATING BREAKFAST. MORNING MEDICATIONS GIVEN ORDERED (SEE MAR). PT EDUCATION R/T LASIX AND FALL PERCUATIONS DONE. PT VERBALIZES UNDERSTANDING THAT HE WILL CALL THE NURSE WHEN HE NEEDS TO GET UP. SHOWER OFFERED AND DECLINED. BED RAILS UP. CALL LIGHT WITHIN REACH.
--- NOTE | 2017-10-12 09:26 | NUR ---
VS AND I&O'S TAKEN AND DOCUMENTED. PT STATES HE WOULD LIKE TO WAIT TO SEE IF HE GOES HOME TO SHOWER. INFORMED PT WE CAN PLAY IT BY EAR. PT AGREES. PT HAS NO OTHER NEEDS AT THIS TIME. CALL LIGHT IS IN REACH.
--- NOTE | 2017-10-12 10:57 | NUR ---
THIS RN CHECKING IN ON PT. PT UP AT SIDE OF BED VISITING WITH AND FRIEND. PT REQUESTS "SOME COKE." PT WITHIN FLUID RESTRICTIONS. SMALL DIET COKE PROVIDED. PT ADVISED TO MAKE THIS IS LUNCH DRINK SO THAT HE WILL STILL HAVE FULIDS FOR THIS AFTERNOON. PT AGREES AND STATES UNDERSTANDING OF REASONS FOR FLUID RESTRICITONS. CALL LIGHT WITHIN REACH. PT STATES NO ADDITIONAL REQUESTS OR COMPALINTS AT THIS TIE.
--- NOTE | 2017-10-12 12:42 | NUR ---
THIS RN TO ROOM FOR FOCUSED ASSESSMENT. PT FOUND TO BE UP AND MOVING AROUND THE ROOM. PT REMINDED THAT HE NEEDS TO CALL THE NURSE WHEN HE NEEDS TO GET UP. PT RETURNED TO BED. BED ALARM ON. FOCUSED ASSESSMENT DONE. MEDICATIONS GIVEN ORDERED (SEE MAR). PT VERBALIZES UNDERSTANDING THAT BED ALARM IS NOW ON AND HE WILL CALL THE NURSE WHEN HE NEEDS TO GET UP. PT EATING LUNCH AND VISITNG WITH FRIEND. PT STATES HE HAS NO REQUESTS OR COMPLAINTS AT THIS TIME. CALL LIGHT WITHIN REACH. PHONE AT BEDSIDE. FRIEND AT BEDSIDE.
--- NOTE | 2017-10-12 13:49 | NUR ---
PT CALL LIGHT ON. PT REQUESTS TO GET UP TO RESTROOM. PT STATES DR VISITED AND HE WILL STAY ANOTHER DAY FOR THERAPY. PT VERBALIZES THAT HE FEELS THIS IS "A GOOD PLAN." PT UP TO RESTROOM WITHOUT INCIDENT. PT BACK TO BED, BED ALARM ON. CALL LIGHT WITHIN REACH. PT VISITING WITH FRIEND. NO ADDITIONAL REQUESTS OR COMPLAINTS AT THIS TIME.
--- NOTE | 2017-10-12 14:19 | NUR ---
PT'S VS AND I&O'S TAKEN AND DOCUMENTED. ASKED PT TO TRY TO KEEP HIS O2 ON MUCH HE CAN. PT STATES HE HAS NO NEEDS AT THIS TIME. INFORMED PT AND FAMILY MEMBER TO CALL IF THEY NEEDED ANYTHING. CALL LIGHT IS IN REACH.
--- NOTE | 2017-10-12 16:06 | NUR ---
THIS RN TO ROOM FOR AFTERNOON ASSESSMENT. PT UP IN ROOM AND REST ROOM. PT DID NOT USE CALL LIGHT. PT STATES "I CALL ALL THE TIME AND NO ONE COMES." PT ASKED TO DEMONSTARTE USE OF CALL LIGTH. PT DEMONSTARTES INCORRECT BUTTON. PT EDUCATED WITH USE OF CALL LIGHT AND DEMONSTARTES CORRECT USE. PT WHEEZING AND CAN BE HEARD WITHOUT STETHOSCOPE. PT BACK TO BED. PT REPOSITIONED WITH HELP PT CONTINUES TO WHEEZE. MD NOTIFIED. BED RAILS UP. CALL LIGTH WITHIN REACH. PT HAS QUESTIONS ABOUT CHF. CHF EDUCATOR RN NOTIFIED.
--- NOTE | 2017-10-12 16:42 | NUR ---
PT'S VS AND I&O'S TAKEN AND DOCUMENTED. PT STATS THAT HE FEELS LIKE HE CAN'T CATCH HIS BREATH. O2 SATS ARE AT 97 ON 2L NC. CHIQUITA BARR, HAS BEEN NOTIFIED. PT HAS NO OTHER NEEDS AT THIS TIME. CALL LIGHT IS IN REACH.
--- NOTE | 2017-10-12 17:07 | NUR ---
Heart failure education initiatiated with patient, spouse, and son. Viewed What is HF video and given HF packet. Spouse demonstrated understanding of low salt diet need with teach back. Owns scales but does not currently monitor daily weight, Has weekly pill box but states that spouse has been administering all medications recently, possible due to pt taking medications just when he thought needed. cooks at home and they do enjoy dining out quite frequently. They are unsure of diet type for liver. Patient was not able to verbalize full understanding of today's information. Echo results are pending. Will return tomorrow for reinforcement of diet and symptom monitoring. Will ask for clinical academic allergist assistance with hepatic diet needs.
--- NOTE | 2017-10-12 17:16 | NUR ---
EVENING MEDICATIONS GIVEN ORDERED (SEE MAR). PT UP ON EDGE OF BED FOR DINNER. PT REPORTS THE BREATHING TREATMENT "HELPED." AUDIBLE WHEEZES STILL PRESENT. PT WORKING ON PHONE AND EATING DINNER. PT STATES NO REQUESTS OR COMPLAINTS AT THIS TIME. BED ALARM ON. CALL LIGHT WITHIN REACH.
--- NOTE | 2017-10-12 17:23 | NUR ---
CBG = 101. NO INSULIN NEEDED AT THIS TIME. PT EATING DINNER. NO REQUESTS OR COMPLAINTS. CALL LIGHT WITHIN REACH.
--- NOTE | 2017-10-12 17:29 | NUR ---
DISCUSSED AND UPDATED ON PT STATUS WITH BABS RESPIRATORY THERAPIST AT THIS TIME, PT EXPIRATORY WHEEZES HAVE IMPROVED WITH PRN NEB. DR. BUENROSTRO DOES NOT WANT TO ADD STEROIDS AT THIS TIME. CONTINUE TO MONITOR. OXYGEN SATURATIONS REMAIN GREATER THAN 92% ON 2L OXYGEN N.C.
--- NOTE | 2017-10-12 18:34 | NUR ---
PT HERE FOR CHF EXACERBATION. STAND BY ASSIST, PRONE TO FALLS BED ALARM ON BUT PT NOT COMPLIANT TO CALLING NURSE. CARDIAC DIET AND 1600ML FLUID RESTRICTION. NEBULIZER TX GIVEN TODAY FOR INCREASED WHEEZING. PT TO WEAR O2, 2L NC AT NIGHT AND WHEN AMBULATING. PT VOIDING WELL AND TOLERATING PO. PT REPORTS OCCATIONAL PAIN WITH COUGH BUT DENIES NEED FOR PAIN COVERAGE. PT HAS FREQUENT BM'S. ECHO DONE TODAY. PT RECIEVING IV LASIX.
--- NOTE | 2017-10-12 18:54 | NUR ---
PTS CALLED PER PT REQUEST FOR UPDATE. PTS STATES HER QUESTIONS WERE ANSWERED AND SHE PLANS TO COME BACK TOMORROW.
--- NOTE | 2017-10-12 20:16 | NUR ---
Continues on O2 2L nc, exp wheezes and audible wheezing, pt denies feeling sob. repositioned in bed. Bed alarm on. no c/o pain, coop with assessment
--- NOTE | 2017-10-13 00:11 | NUR ---
RESTING, O2 REPLACED HE TOOK OFF. AWAKENS EASILY, HOB ELEVATED. BED ALRM ON. NO RESP DISTRESS, TURNS SELF IN BED
--- NOTE | 2017-10-13 01:53 | NUR ---
RESTING, O2 PLACED BACK IN NARES PT TAKES IT OFF. GOES BACK TO SLEEP, NO FURTHER C/O PAIN , N/V OR C/O RESP DISTRESS, SATS 90%,
--- NOTE | 2017-10-13 06:25 | NUR ---
PATIENT STILL HAVE HIS 250CC FREE WATER AT [facility].
--- NOTE | 2017-10-13 06:34 | NUR ---
Pt has slept most of this shift. O2 2L/NC tubing placed back on nares several times this shift as pt takes it off, cooperative, pleasant. Gets up with one assist to brp, voiding qs. Bed alrm on when in bed. Not utilizing the call light. Pt alert to self, confused to place and time at times. easily redirectable. SL intact. No c/o pain or n/v this shift Daily weight this am is 279.9#, yesterday weight was 287.1#.
--- NOTE | 2017-10-13 07:30 | NUR ---
PATIENT SITTING UP IN CHAIR. 1 PERSON ASSIST TO TOILET AND SHOWER, O2 ON. PT ASKED TO GLANCE BACK AT HIS BEDSIDE TABLE FOR CONFIRMATION AND SEEMED UNSURE TO WE WERE ACTUALLY GOING TO DO OR HOW TO DO IT. . PATIENT WAS ABLE TO PERFORM MOST OF THE SHOWER HIMSELF WHILE SITTING ON CHAIR. 1 PERSON ASSIST BACK TO CHAIR. CALL LIGHT IN REACH. NO OTHER NEEDS.
--- NOTE | 2017-10-13 09:38 | NUR ---
MORNING ASSESSMENT DUE. PT UP TO RECLINER AND FINISHED WITH BREAKFAST. PT CONFUSED AT TIMES AND IS ASKING THE SAME QUESTIONS AGAIN AND AGAIN. AT CHAIRSIDE. ASSESSMENT DONE. MEDICATIONS GIVEN ORDERED (SEE MAR). PT CONFUSED ABOUT PLAN OF CARE. INSTRUCTION GIVEN. PT VERBALIZES UNDERSTANDING BUT CONTINUES TO REPEAT QUESTIONS. PT REASSURED AND IS ORIENTED X4. CHAIR ALARM ON. CALL LIGHT WITHIN REACH.
--- NOTE | 2017-10-13 10:37 | NUR ---
THIS RN CHECKED IN ON PT. PT VISITING WITH HEAD HOUSEKEEPER. PT USING CALL LIGHT THIS MORNING WHEN HE WANTS TO GET UP. PT STATES HE HAS NO REQUESTS OR COMPLAINTS AT THIS TIME. AT BEDSIDE. CHAIR ALARM ON. CALL LIGHT WITHIN REACH.
--- NOTE | 2017-10-13 11:32 | NUR ---
PT CALL LIGHT ON. THIS RN RESPONDS. PT HAS QUESTIONS ABOUT WHEN HE WILL RECIEVE HIS ROPINIROLE. PT INFORMED THAT THIS MEDICATION IS PLANED FOR THIS AFTERNOON. PT STATES "THAT WILL BE FINE." FOCUSED ASSESSEMENT DONE. 2L O2 BY NC ON PT. CHAIR ALARM ON. CALL LIGTH WITHIN REACH. PT STATES HE HAS NO ADDITIONAL QUESTIONS OR COMPLAINTS AT THIS TIME.
--- NOTE | 2017-10-13 11:41 | NUR ---
CHAIR ALARM SOUNDING. THIS RN RESPONDS. PT TRYING TO GET UP. PT ASSISTED. PT WALKS AROUND ROOM AND THEN TO THE EDGE OF BED FOR LUNCH. PT EATING LUNCH. BED ALARM ON. CALL LIGHT WITHIN REACH. PT VERBALIEZES UNDERSTANDING THAT HE WILL CALL RN WHEN READY TO GET UP.
--- NOTE | 2017-10-13 11:42 | NUR ---
VISITING AT 10:30 AM. PATIENT SITTING UP IN CHAIR. HE HAS NEVER TALKED TO A DIETITIAN BEFORE. HE SAID SOMEONE FROM THE ED TOLD HIM TO EAT A LOW-FAT DIET. HE SAID HE IS FAMILIAR WITH WATCHING SODIUM INTAKE BUT WAS UNABLE TO TELL ME HOW MANY MG OF SODIUM TO NOT GO OVER. I SAID 2000 MG IS THE MAX. THAT INCLUDES SALT ALREADY IN FOOD PLUS SALT WE ADD TO FOOD. PATIENT SNACKS THROUGHOUT THE DAY. SAYS HE EATS BREAKFAST ABOUT 3 DAYS/WEEK. HE LOVES BULGARIAN WAFFLES WITH LOTS OF SYRUP. HIS DOES COOK. PATIENT SAID HE LIKES CANNED CHILI BUT KNOWS ITS REALLY HIGH IN SALT. HE MIGHT EAT CANNED CHILI OR CANNED SOUP MAYBE ONCE A MONTH. I TOLD THEM THEY SHOULD MAKE THEIR OWN CHILI AT HOME AND THEY DO, BUT THEY USUALLY MAKE A HUGE POT OF IT. ANYWAY, GAVE THEM A HANDOUT ON LOW-SODIUM NUTRITION THERAPY AND PUT IT IN THE RED FOLDER PROVIDED BY [facility] N[facility]. I TOLD PATIENT TO NOT WORRY ABOUT EATING LOW FAT RIGHT NOW. HE SHOULD FOCUS MORE ON LOWER SODIUM FOODS AND WATCHING HIS FLUID INTAKE. WILL NEED MORE EDUCATION ON FLUID RESTRICTION IF GOING HOME ON A CERTAIN AMOUNT. HE DOESN'T EAT MUCH RED MEAT, THIS HAS BEEN GOING ON FOR A FEW YEARS. WILL CONTINUE TO HELP REINFORCE A LOW-SODIUM DIET AND PROVIDE MORE RECIPES.
--- NOTE | 2017-10-13 12:16 | NUR ---
MEDICATION DUE. PT EATING LUNCH. WHEEZING NOTED. MEDICATION GIVEN ORDERED (SEE MAR). PT STATES HE HAS NO REQUESTS OR COMPLAINTS AT THIS TIME. CALL LIGHT WITHIN REACH. BED ALARM ON. AT BEDSIDE.
--- NOTE | 2017-10-13 14:51 | NUR ---
PATIENT SITTIN UP IN CHAIR, IN ROOM. VITALS DONE, [facility](CARDIAC) IN TO TALK WITH PATIENT AND . FRESH WATER GIVEN. CALL LIGHT IN REACH. DISCHARGE PLANNING IN ROOM.
--- NOTE | 2017-10-13 15:11 | NUR ---
PT CALL LIGHT ON. PT REPORTS 7/10 PAIN IN RIGHT SIDE WITH COUGHING. SEE MAR FOR MEDICATION GIVEN. PT HAS PILLOW TO HUG WITH COUGHING WELL. PT UP TO RECLINER. CHAIR ALARM ON. CALL LIGHT WITHIN REACH. AT BEDSIDE.
--- NOTE | 2017-10-13 15:27 | NUR ---
AFTERNOON ASSESSMENT DONE. PT REPORTS DISCOMFORT AT IV SITE. PIV ASSESSED, WNL. WHEN ASKED WHERE THE DISCOMFORT IS PT POINTS TO A PIECE OF TAPE. TAPE REMOVED AND PT STATES "THAT FEELS BETTER." LUNGS SILL EXHIBIT EXPIRATORY WHEEZES. PT STATES NO ADDITIONAL CONCERNS AT THIS TIME. CALL LIGHT WITHIN REACH. CHAIR ALARM ON.
--- NOTE | 2017-10-13 16:08 | NUR ---
Reinforced heart failure education including -daily weights, sleep, follow up appointments, label reading. Spouse was able to ID high sodium foods and alternatives. Demonstrated understanding of yesterday's information with teach back. Patient has delayed reaction time and some noted memory impairment- nursing staff and physician are aware. states changes noted for past month and does not occur all the time. Deferred PHQ-9 and Mini Cog screenings. Agrees to follow up call post discharge by this service.
--- NOTE | 2017-10-13 17:03 | NUR ---
PT PAIN REASSESSED. PT STATES HIS PAIN IS "MUCH BETTER. I THINK THAT MEDICINE IS WORKING." PT NOW RATES PAIN AT 4/10 WITH COUGHING. PT SETTLED INTO CHAIR. CHAIR ALARM ON. CALL LIGHT WITHIN REACH.
--- NOTE | 2017-10-13 17:30 | NUR ---
EVEN MEDICATIONS DUE. PT BACK IN BED. MEDICATIONS GIVEN ORDERED (SEE MAR). PT WATCHIGN TV AND USING PHONE. PT ASSISTED WITH MAKING A PHONE CALL TO . BED RAILS UP. CALL LIGHT WITHIN REACH. BED ALARM ON.
--- NOTE | 2017-10-13 17:44 | NUR ---
PT HERE FOR CHF EXACERPATION. 1 PERSON STAND BY ASSIST, PT NOT COMPLIANT WITH CALLING RN FOR ASSISTANCE. PT ON CARDIAC DIET, AND COMPLIANT TO 1600ML FLUID RESTRICTION. PT REPORTS RIGHT SIDED PAIN WITH COUGHING, TESSLON PEARLS GIVEN WITH GOOD RESULTS. PT CONFUSED AT TIMES BUT ORIENTED X3-4. BED ALARM/CHAIR ALARM AND CLOSE MONITORING. SCHEDULED AND PRN NEB TREATEMENTS FOR WHEEZING.
--- NOTE | 2017-10-13 19:00 | NUR ---
RECEIVED REPORT FROM RN. PATIENT IS EATING DINNER IN CHAIR. DENIES NEEDS AT THIS TIME. BREAHTING IS EVEN AND UNLABORED. CALL LIGHT WITHIN REACH, CHAIR ALARM ON.
--- NOTE | 2017-10-13 20:30 | NUR ---
PATIENT RESTING IN CHAIR, BREATHING IS EVEN AND UNLABORED. ASSISTED PATIENT TO BATHROOM WITH SBA, TOLERATED WELL WITHOUT A SIGNIFICANT INCREASE IN SHORTNESS OF BREATH. NOW RESTING IN BED, BREATHING IS EVEN AND UNLABORED. DENIES NEEDS AT THIS TIME. ASSESSMENT DONE, MEDICATIONS GIVEN. CALL LIGHT WITHIN REACH, BED ALARM ON.
--- NOTE | 2017-10-13 22:14 | NUR ---
PT CALL LIGHT SOUNDING, RESPONDED, FOUND PT UP WITH GOWN HALF ON, 4 SIDE RAILS UP. PT SAID HE CLIMBED OUT OF BED TO GET DRESSED. PT OXYGEN OFF, PT SOB. MOVED PT TO ROOM 120 FOR CLOSER SUPERVISION. BED ALARM ON, FRONT OFFICE NOTIFIED OF THE MOVE. PT BACK TO BED WITH OXYGEN ON.
--- NOTE | 2017-10-13 23:15 | NUR ---
PATIENT RESTING IN BED, BREATHING IS EVEN, APPEARS TO BE SHORT OF BREATH, AUDIBLE EXPIRATORY WHEEZE NOTED. PATIENT DOES NOT APPEAR TO BE IN DISTRESS, RESTING WITH EYES CLOSED. TESSALON PEARLS GIVEN FOR COUGH. DENIES FURTHER NEEDS. CALL LIGHT WITHIN REACH, BED ALARM ON.
--- NOTE | 2017-10-14 00:08 | NUR ---
PATIENT CALLING OUT, UPON ENTERING ROOM, PATIENT IS SLOUCHED IN BED, BREATHING IS LABORED. REPOSITIONED IN BED WITH SECOND RN, NOW RESTING IN BED COMFORTABLY. DENIES NEEDS AT THIS TIME. BREATHING APPEARS TO BE LESS LABORED. WILL MONITOR CLOSELY. PATIENT DENIES NEEDS. CALL LIGHT WITHIN REACH, BED ALARM ON.
--- NOTE | 2017-10-14 01:25 | NUR ---
PATIENT RESTING COMFORTABLY IN BED, BREATHING IS EVEN AND UNLABORED. FLACC SCORE OF 0. CALL LIGHT WITHIN REACH, BED ALARM ON.
--- NOTE | 2017-10-14 02:20 | NUR ---
PATIENT ASSISTED TO BATHROOM WITH SBA. NOW RESTING IN BED. PATIENT IS SHORT OF BREATH. NOW RESTING IN BED. EXPIRATORY WHEEZING IN UPPER AIRWAYS IS NOTED, LUNGS ARE CLEAR IN BASES. O2 SATURATION IS 95% ON 2L O2. RT IN TO DO BREATHING TREATMENT. WILL CONTINUE TO MONITOR. PATIENT DENIES NEEDS. CALL LIGHT WITHIN REACH, BED ALARM ON.
--- NOTE | 2017-10-14 03:28 | NUR ---
ASSISTED PATIENT TO BATHROOM WITH 2PA, PATIENT HAS UNSTEADY GAIT. NOW IN BED AGAIN, BREATHING IS MILDLY LABORED. PATIENT DENIES NEEDS. CALL LIGHT WITHIN REACH, BED ALARM ON.
--- NOTE | 2017-10-14 05:45 | NUR ---
PATIENT'S CONDITION APPEARS WORSE. SPEECH IS INCOMPREHENSIBLE, HAS DIFFICULTY FOLLOWING DEMANDS. DISORIENTED TO PLACE, TIME, SITUATION, RESPONDS TO NAME. MOTOR STRENGTH IS EQUAL BILATERALLY IN UPPER AND LOWER EXTREMITIES, SENSATION INTACT. PERRL. TEMPERATURE OF 97.8, O2 SATURATION IS 88% ON ROOM AIR AFTER PATIENT REMOVED O2. 2L O2 PLACED ON PATTIENT. DR. BUENROSTRO WAS NOTIFIED OF PATIENT'S CONDITION, ORDER FOR CPAP RECEIVED. WILL MONITOR PATIENT CLOSELY. RT TO ROOM TO ASSESS/ASSIST WITH PATIENT.
--- NOTE | 2017-10-14 06:00 | NUR ---
PATIENT COMPLAINS OF CONTINUOUS ABD PAIN WITH CPAP IN PLACE. DR. BUENROSTRO NOTIFIED. PATIENT IS TO KEEP CPAP ON AT THIS TIME. ALSO RECEIVED ORDER FOR ABG TO BE DRAWN.
--- NOTE | 2017-10-14 06:21 | NUR ---
PATIENT'S HEAD IS ELEVATED, CPAP ON, FIO2 AT 40%. RR IS 16. PATIENT APPEARS COMFORTABLE. ORIENTED TO PLACE AND EVENT, UNABLE TO TELL RN WHAT MONTH IT IS. REPOSITIONED FOR COMFORT. CALL LIGHT WITHIN REACH, BED ALARM ON.
--- NOTE | 2017-10-14 06:48 | NUR ---
PATIENT GIVEN TESSALON PEARLS FOR COUGH RELIEF. PATIENT CONTINUES TO BE ON CPAP, RR IS 18 WITH 40% FIO2. CALL LIGHT WITHIN REACH, BED ALARM ON.
--- NOTE | 2017-10-14 08:00 | NUR ---
PATIENT WAS UP TO THE BATHROOM WITH ONE PERSON ASSIST, THEN BACK TO BED AND PATIENT DOES NOT WANT TO WHERE HIS CPAP.
--- NOTE | 2017-10-14 09:00 | NUR ---
PATIENT RESTING IN BED WITH EYES CLOSE. NO NEEDS AT THIS TIME.
--- NOTE | 2017-10-14 10:30 | NUR ---
PATIENT ADJUSTED IN BED WITH ASSIST. B-PAP ON. BED ALARM ON NO OTHER NEEDS AT THIS TIME.
--- NOTE | 2017-10-14 11:03 | NUR ---
PATIENT'S AT BEDSIDE. PATIENT JUST VOIDED 350MLS IN THE URINAL. PATIENT CONTINUES TO WHERE HIS CPAP AT THIS TIME. DISCUSSING WHAT PATIENT WILL HAVE FOR LUNCH WITH , SAYS SHE WILL PICK OUT SOMETHING FOR LUNCH FOR THE PATIENT.
--- NOTE | 2017-10-14 12:26 | NUR ---
PATIENT A+O AT THIS TIME ON 6L/NC WHILE HE ATE HIS LUNCH, BUT WENT BACK ON THE CPAP TO MAKE SURE HE STAYS ORIENTED FOR THE CARE CONFERENCE AT 1 PM.
--- NOTE | 2017-10-14 12:38 | NUR ---
PATIENT RESTING IN BED WITH BI-PAP ON. NO NEEDS AT THIS TIME.
--- NOTE | 2017-10-14 13:00 | NUR ---
CARE CONFERENCE ATTENDEES: PATIENT, MANAGER INPATIENTELMA JOY(BY CELL PHONE) STAFF: DR BUENROSTRO, [employer], [facility], RYLIE COOK RN, SHANNAN RN DR BUENROSTRO DISCUSSED WITH PT AND SO HOW HE IS DOING AND WHAT TO EXPECT FROM THE FUTURE, PT STATES HE DOES NOT WANT TO , BUT HE DOES NOT WANT TO GO INTO A SNF. FAMILY TRYING TO HELP PT WITH DECISION MAKING EFFORTS. I NEED TO CALL [facility] AND SEE IF PT CAN BE ON A LONER CPAP UNTIL SUCH A TIME HE IS ABLE TO HAVE A SLEEP STUDY DONE. DR BUENROSTRO EXPLAINED THAT HE COULD AND WILL HIS CO2 KEEPS GOING UP AND HE IS GETTING MORE AND MORE CONFUSED BECAUSE OF THE ELEVATED CO2. PT AND SO AT THIS TIME STATE UNDERSTANDING OF THIS. PT AND SO WANT TO DISCUSS THIS WITH FAMILY STATING THEY WILL LET US KNOW WHAT THEY ARE GOING TO DO.
--- NOTE | 2017-10-14 13:20 | NUR ---
NURSE RYLIE COMES TO ME AND STATES THE PATIENT IS NOW AGREEABLE TO GO TO [facility] IN [place] AND TO SEE DR MARTINEZ. WILL WORK TOWARDS MAKING THESE ARRANGEMENTS.
--- NOTE | 2017-10-14 13:55 | NUR ---
PATIENT HAD A CARE CONFERENCE AT 1PM. PATIENT HAS NOW DECIDED THAT IF NEEDED HE WILL BE WILLING TO GO TO A CARE FACILITY IN [place] UNTIL HE CAN GET A SLEEP STUDY DONE AND GET CPAP FOR GOING HOME.
--- NOTE | 2017-10-14 14:50 | NUR ---
PATIENT ADJUSTED IN BED. NELLA CARE DONE. HANDS AND FACE WASHED. CALL BUTTON IN REACH. RT IN ROOM. NO OTHER NEEDS AT THIS TIME.
--- NOTE | 2017-10-14 16:55 | NUR ---
CALLED CHARLES LEFT MESSAGE FOR YOSHI TO CALL ME.
--- NOTE | 2017-10-14 17:05 | NUR ---
RECIEVED A CALL FROM YOSHI AND WE DISCUSSED THE PLAN FOR THE PT, SHE STATED UNDERSTANDING AND ASK ME TO SEND A CHART PACK TO HER. SENT FACESHEET, ER NOTE, H AND P, PROG NOTES, LABS, IMAGING. RECIEVED A FAX CONFIRMATION SHEET AND YOSHI WILL CALL TOMORROW.
--- NOTE | 2017-10-14 17:37 | NUR ---
PATIENT IS DOING WELL ON 2L/NC WHILE EATING DINNER. ATE 100%.
--- NOTE | 2017-10-14 17:46 | NUR ---
PATIENT HAS HAD A FAIRLY GOOD DAY. HAD A CARE CONFERENCE TODAY ABOUT GOING TO A SNF IN [place] TO AWAIT A SLEEP STUDY TO GET A CPAP MACHINE. PATIENT FINALLY AGREED TO GO. PATIENT HAS LEARNED MORE ABOUT HIS CPAP NEED AND SETTINGS. HE CAN BE OFF CPAP FOR AWHILE ON 2L/NC, BUT THEN NEEDS TO GO BACK ON CPAP OF 12 AT 30%. PATIENT STILL HAS NO IV, VOIDS PER URINAL, AND FEEDS HIMSELF WELL.
--- NOTE | 2017-10-14 19:00 | NUR ---
RECEIVED REPORT FROM RN. PATIENT IS RESTING IN BED, BREATHING IS EVEN AND UNLABORED. REFUSING TO WEAR CPAP AT THIS TIME DUE TO ANXIETY. PATIENT PLACED ON NC. DENIES NEEDS AT THIS TIME. CALL LIGHT WITHIN REACH, BED ALARM ON.
--- NOTE | 2017-10-14 19:41 | NUR ---
PATIENT STATES HE FEELS ANXIOUS WITH CPAP ON, WILL LEAVE CPAP ON FOR [address] BUENROSTRO REGARDING PATIENT'S CONDITION, RECEIVED ORDER X1 PO 0.5 MG ATIVAN.
--- NOTE | 2017-10-14 20:31 | NUR ---
PATIENT RESTING IN BED, BREATHING IS EVEN AND UNLABORED. DENIES NEEDS AT THIS TIME. ASSESSMENT DONE, MEDICATIONS GIVEN. CALL LIGHT WITHIN REACH, BED ALARM ON.
--- NOTE | 2017-10-14 21:45 | NUR ---
PATIENT CONTINUES TO HAVE COUGH WITH RESULTANT ABD PAIN. TESSALON BRAIN GIVEN FOR COUGH RELIEF. CONTINUES TO TAKE CPAP OFF. REINFORCED THE NEED FOR CPAP. PATIENT IS AGREEABLE. CALL LIGHT WITHIN REACH, BED ALARM ON.
--- NOTE | 2017-10-14 22:07 | NUR ---
ASSISTED PATIENT WITH PUTTING CPAP BACK ON AFTER PATIENT TOOK OFF.
--- NOTE | 2017-10-14 23:30 | NUR ---
ASSISTED PATIENT ON SIDE FOR COMFORT. O2 SATURATION IS 97% ON 3L O2. TITRATED O2 TO 1L O2. WILL MONITOR. PATIENT RESTLESS BUT STATES "I AM FINE." CONTINUES TO REFUSE CPAP. CALL LIGHT WITHIN REACH, BED ALARM ON.
--- NOTE | 2017-10-15 00:47 | NUR ---
PATIENT CONTINUES TO TAKE OFF NC, PLACED PATIENT ON BLOW BY O2. O2 SATURATION IS BETWEEN 88 AND 91% ON 14L BLOW BY. WILL MONITOR CLOSELY. CALL LIGHT WITHIN REACH, BED ALARM ON.
--- NOTE | 2017-10-15 01:05 | NUR ---
PATIENT RESTING IN BED. O2 SATURATION IS 91% ON BLOWBY. CALL LIGHT WITHIN REACH, BED ALARM ON.
--- NOTE | 2017-10-15 01:44 | NUR ---
PATIENT PUT ON CPAP, TOLERATING WELL. O2 SATURATION IS 98% ON 40% FIO2, RR IS 18. WILL MONITOR CLOSELY. CALL LIGHT WITHIN REACH, BED ALARM ON.
--- NOTE | 2017-10-15 02:00 | NUR ---
PATIENT CONTINUES TO BE RESTLESS, O2 SATURATION VARIES FROM 88 TO 91% ON BLOWBY O2. BED ALARM ON, CALL LIGHT WITHIN REACH.
--- NOTE | 2017-10-15 03:09 | NUR ---
PATIENT FREQUENTLY REPOSITIONING IN BED, O2 SATURATION VARIES BETWEEN 88 AND 90% ON BLOWBY O2. PATIENT FREQUENTLY TAKING PULSE OX OFF AND ATTEMPTING TO REMOVE BLOWBY O2. BED ALARM ON, CALL LIGHT WITHIN REACH.
--- NOTE | 2017-10-15 04:14 | NUR ---
PATIENT PUT BACK ON PULSE OX AFTER REMOVING IT FROM FINGER. O2 SATURATION REMAINS 91% ON BLOWBY O2. REINFORCED PURPOSE OF PULSE OX AND BLOWBY O2. CALL LIGHT WITHIN REACH, BED ALARM ON.
--- NOTE | 2017-10-15 04:49 | NUR ---
PATIENT HAS BEEN RESTLESS THROUGHOUT SHIFT. ALERT AND ORIENTED BUT CAN BE CONFUSED AT TIMES. PATIENT DOES NOT TOLERATED CPAP OR NC, PATIENT'S O2 SATURATION HAS BEEN ADEQUATE ON BLOWBY O2. EXPIRATORY WHEEZES THROUGHOUT. VSS, URINE OUTPUT QS. PATIENT IS A SBA WHEN ORIENTED, HAS REMAINED IN BED FOR MAJORITY OF SHIFT USING URINAL WITH RN JUDGEMENT. NO EDEMA NOTED. NO ACUTE CHNAGES FROM BEGINNING OF SHIFT.
--- NOTE | 2017-10-15 07:25 | NUR ---
END OF GETTING REPORT FROM BEST SECOND JOBS. PATIENT SLEEPING WITH BLOWBY 02 ON AT THIS TIME AND SATS 92%. RESPIRATIONS REGULAR AT 20BPM.
--- NOTE | 2017-10-15 10:31 | NUR ---
PATIENT AND I MADE A DEAL THAT IF HE WA ABLE TO KEEP THE CPAP ON FROM 0915 TO 1015 WE WOULD GET UP AND SHOWER. PATIENT HAS BEEN UNABLE TO KEEP CPAPA ON FOR MORE THAN [address] BUENROSTRO JUST CAME AND DISCUSSED THIS WITH HIM AGAIN AND THAT THIS WAS HIS PLAN FOR GOING HOME. PATIENT AGREED TO TRY AGAIN AND HAS CPAP ON AT THIS TIME.
--- NOTE | 2017-10-15 10:48 | NUR ---
RT IN ROOM TO ADD HUMIDITY TO CPAP. FAMILY MEMBER IN ROOM.
--- NOTE | 2017-10-15 12:21 | NUR ---
PATIENT IS EATING LUNCH WITH HIS . PATIENT HAS HAD A HARD TIME KEEPING THE CPAP MASK ON TODAY. HE HAS GOTTEN AN INCREASE IN HIS RESTLESS LEG MEDICATION AND HUMIDITY ADDED TO THE CPAP AND THAT HAS SEEMED TO HELP. SPEECH IS CLEAR AT THIS TIME, A+O, AND HE IS EATING WELL. BEEN VOIDING WELL PER URINAL.
--- NOTE | 2017-10-15 13:30 | NUR ---
PATIENT UP TO THE BATHROOM ON 6L/NC AND TOOK A SHOWER WITH SHOWER CHAIR THEN BACK TO BED TO VISIT WITH HIS . PATIENT TOLERATED HIS SHOWER WELL AND SAID HE FELT MUCH BETTER.
--- NOTE | 2017-10-15 14:16 | NUR ---
PATIENT BACK ON CPAP AT THIS TIME SLEEPING AND SO FAR TOLERATING THE CPAP. PATIENT'S HAS GONE HOME FOR THE TIME BEING.
--- NOTE | 2017-10-15 15:22 | NUR ---
I HAVE HAD RT HERE TWICE IN THE LAST 30 MINUTES, PATIENT IS GETTING MORE CONFUSED, WILL NOT KEEP CPAP ON. HAS PULLED THE MASK APART X2. PATIENT SAYS HE JUST CAN'T WEAR THE AND WON'T WEAR THE MASK. JUST TALKED WITH ON THE PHONE. I AM TO TAKE SUPPLEMENTAL O2 DOWN UNTIL PATIENT IS AROUND 90%. IF PATIENT BECOMES MORE SEDATE, PUT THE MASK BACK ON HIM. I WILL REMAIN IN PATIENT'S ROOM WHILE HE IS OFF CPAP. PATIENT HAS ONLY BEEN ON 2L/NC SINCE HIS SHOWER, AND IS AT 99%. O2 TURNED OFF AND HE IS CURRENTLY 94% ON ROOM AIR. WILL CONTINUE TO MONITOR.
--- NOTE | 2017-10-15 16:04 | NUR ---
PATIENT UP TO BEDSIDE COMMODE AND HAD 1 MEDIUM SIZED BROWN STOOL AND THEN BACK TO BED. STILL RUNNING 93% SATS ON ROOM AIR.
--- NOTE | 2017-10-15 17:06 | NUR ---
PATIENT REMAINS OFF 02, AND STILL FAIRLY LUCID AND FEEDING HIMSELF DINNER.
--- NOTE | 2017-10-15 18:22 | NUR ---
PATIENT SHOWERED TODAY, WOULD NOT WHERE HIS CPAP, WE HAD TO TAKE HIM OFF O2, HIS O2 SATS EVEN ON 2L/NC WERE TO HIGH. PATIENT STILL ATE HIS MEALS WELL, HAD A BM TODAY. WE WERE ABLE TO FIND A BETTER MASK FOR THE CPAP JUST NOW AND THE PATIENT IS TRYING TO SEE IF HE CAN USE IT. PATIENT STILL HAS NO IV.
--- NOTE | 2017-10-15 19:00 | NUR ---
BEDSIDE REPORT RECEIVED FROM CHIQUITA ALONSO. PT LYING IN BED, EYES CLOSED, AWAKENS TO RN VOICE. PT ABLE TO ANSWER ALL ORIENTATION QUESTIONS APPROPRIATELY. SPO2 98% ON ROOM AIR. APPLIED CPAP AT THIS TIME, PT COOPERATIVE. CALL LIGHT IN REACH, BED ALARM SET.
--- NOTE | 2017-10-15 22:15 | NUR ---
ASSISTED PT TO RESTROOM FOR BM WITH RN PETE ASSIST, PT PERSISTENT ON AMBULATING TO RESTROOM VS BSC. PT TOLERATED WELL. BACK IN BED, LINENS CHANGED. WHEEZES HEARD THROUGHOUT LUNGS, PT ON ROOM AIR, OCCASIONAL COUGH. CPAP APPLIED AT THIS TIME. PT IS ALERT, ORIENTED TO PERSON, PLACE, NOT TIME. PT QUESTIONING MEDICATIONS, PLAN OF CARE. BED ALARM SET, CALL LIGHT GIVEN TO PT.
--- NOTE | 2017-10-15 22:51 | NUR ---
RT LAURENT IN PT ROOM, ASSISTED TO SWITCH PT BACK TO FULL CPAP MASK. PT COMPLIANT AT THIS TIME. EDUCTION PROVIDED. LIGHTS OFF IN PT ROOM, BED ALARM SET.
--- NOTE | 2017-10-15 23:00 | NUR ---
IN PT ROOM, CPAP ALARMING, PT REMOVED MASK, MASK REAPPLIED AT THIS TIME. CONTINUE TO MONITOR.
--- NOTE | 2017-10-16 00:03 | NUR ---
CPAP OFF PT, REAPPLIED, EDUCATION PROVIDED. PT COMPLIANT. WILL CONTINUE TO MONITOR.
--- NOTE | 2017-10-16 00:34 | NUR ---
IN PT ROOM, ASSISTED RN PETE TO BOOST PT IN BED. PT STATES "I'M NOT SURE ABOUT THIS OPERATION". EDUCATED RE PLAN OF CARE, PT REQUESTING TO LEAVE. STATED TIME OF DAY, PT REFUSES CPAP AT THIS TIME. RT ANASTASIIA IN ROOM. BED ALARM SET, CALL LIGHT IN REACH.
--- NOTE | 2017-10-16 01:20 | NUR ---
PT ATTEMPTING TO CALL , UNSUCCESSFUL. ATTEMPTING TO GET OUT OF BED AT THIS TIME, ASSISTED TO BSC W BATTERY CONTAINER TESTER ALUMINUM NOVEMBER FOR BM. PT BACK TO BED, GIVEN OLMAN GALINDO, CPAP ON AT THIS TIME, BED ALARM SET.
--- NOTE | 2017-10-16 01:44 | NUR ---
IN ROOM, PULSE OXIMETER OFF, REAPPLIED, CPAP BACK ON PT AT THIS TIME, SPO2 92%. CALL LIGHT IN REACH, BED ALARM SET.
--- NOTE | 2017-10-16 03:45 | NUR ---
RT ANASTASIIA IN PT ROOM, PT HAS CPAP OFF. ADMINISTERED PRN TESSALON PERRLES FOR COUGH. PT GIVEN ALLOTTED 300 ML WATER. WHEEZES HEARD BILATERALLY UPPER LOBES, LUNGS DIMINISHED. CSM INTACT. PT DENIES ANY PAIN, STATES ONLY WITH COUGHING. RT ANASTASIIA PUT CPAP BACK ON PT. BED ALARM SET.
--- NOTE | 2017-10-16 04:50 | NUR ---
IN PT ROOM, PT CHEWING ON ATTENDS, STATES "I'M EATING BREAD" REORIENTED, APPLIED CPAP MASK AT THIS TIME. BED ALARM SET.
--- NOTE | 2017-10-16 05:35 | NUR ---
PT ORIENTED TO PERSON, PLACE, NOT DATE THIS SHIFT. CONFUSED AND FORGETFUL RE CPAP AND EDUCATION, CONTINUOUSLY REMOVING CPAP DESPITE PROVIDED EDUCATION. BED ALARM SET THROUGHOUT SHIFT. PT UP TO BSC FOR BMS X 2. USING URINAL FOR VOIDS. PT ATTEMPTING TO GET OUT OF BED MULTIPLE TIMES THIS SHIFT INDEPENDENTLY. DENIES PAIN, CONTINUES TO COUGH, PRN TESSALON PERRLES ADMINISTERED. ON ROOM AIR THROUGHOUT SHIFT SATS >90%.
--- NOTE | 2017-10-16 05:41 | NUR ---
Pt repositioned in bed, Rails up, bed alrm on, high fall risk protocol in place. Pt continues to decline using o2 or CPAP, multiple tries and attemtpts. done. Cont pulse ox in place, sats 92%. Resting at this time
--- NOTE | 2017-10-16 06:24 | NUR ---
IN PT ROOM, STANDING WEIGHT, VITALS, IS AND OS COMPLETE. PT TOLERATED WELL, GAIT STEADY. PT BACK IN BED, BED ALARM SET.
--- NOTE | 2017-10-16 06:55 | NUR ---
PT STANDING IN ROOM. PT CONFUSED. BACK IN BED, BED ALARM SET. WATER, CRACKERS, PERSONAL SUPPLIES IN REACH.
--- NOTE | 2017-10-16 07:20 | NUR ---
BEDSIDE HANDOFF REPORT RECEIVED FROM AUTO SEAT COVER INSTALLER RN. PT RESTING IN BED. BIPAP REPLACED ON PT. CONTINUOUS PULSE OX IN PLACE. PT DENIES NEEDS AT THIS TIME, BED ALARM ON.
--- NOTE | 2017-10-16 08:30 | NUR ---
PT RESTING IN BED, AT BEDSIDE. PT DISORIENTED TO DATE AND EVENTS. PT LUNG SOUNDS CLEAR WITH DIMINISHED BASES, ENCOURAGE CPAP MUCH POSSIBLE. PT DENIES NAUSEA, TOELRATING CARDIAC DIET, BOWEL TONES ACTIVE. PT WITHOUT EDEMA, CMS INTACT, HX NEUROPATHY. WITHOUT IV ACCESS. ASKING QUESTIONS ABOUT DISCHARGE AND SLEEP STUDY, EDUCATED THAT PT MUST BE STABLE FOR DISCHARGE BEFORE SLEEP STUDY CAN BE DONE. PT DENIES OTHER NEEDS AT THIS TIME.
--- NOTE | 2017-10-16 10:11 | NUR ---
HAD A 30 MINUTE DISCUSSION WITH PATIENT AND . PATIENT SLIGHTLY CONFUSED, HAS TROUBLE WITH MEMORY IN NAMES, ETC. PATIENT DID ASK SOME APPROPRIATE THINGS ABOUT WHAT HIS CHOICES ARE. HE ASKED "CAN A PERSON CHOOSE NOT TO GO TO A PRISON AND GO HOME AND ". I DID EXPLAIN THAT HE AND HIS FAMILY CAN CHOOSE ANY COURSE THAT IS RIGHT FOR HIM. WE ARE HERE TO GIVE HIM THE INFORMATION AND THE RESOURCES, BUT THEY CAN CHOOSE IN THE END. HIS AND HE SPOKE BACK AND FORTH APPROPRIATELY REGARDING ALL ISSUES. HE DID SAY HE WILL "TRY HARDER TO WEAR THAT MASK SET-UP" REFERRING TO THE BIPAP MASKS. PATIENT WAS VERY THOUGHTFUL AND COOPERATIVE. ALL QUESTIONS ANSWERED AT THIS TIME.
--- NOTE | 2017-10-16 10:43 | NUR ---
PT WITH RESTLESS LEGS, GIVEN PRN REQUIP. PT REPOSISTIONED IN BED, ATTEMPTED TO VOID IN URINAL, VOIDED SMALL AMOUNT. PT WITH CPAP MASK ON, AT BEDSIDE. PT DENIES OTHER NEEDS AT THIS TIME.
--- NOTE | 2017-10-16 14:16 | NUR ---
STAFF HAVE SPENT QUITE A BIT OF TIME WITH PT TODAY. HE WAS SITTING IN CHAIR, HAD JUST PUT HIS C-PAP MASK ON. I STEPPED IN AND SAID SONJA, HE HELD OUT HIS HAND TO SHAKE MINE. BRIEF, BUT GOOD VISIT. I EXTENDED A BLESSING, HE SMILED AND THANKED ME AND INVITED ME TO COME BACK. WILL CONTINUE TO FOLLOW
--- NOTE | 2017-10-16 14:20 | NUR ---
PT ASSISTED TO BATHROOM AND BACK TO CHAIR, SBA FOR AMBULATION. CPAP MASK REPLACED. PT DENIES OTHER NEEDS AT THIS TIME, CHAIR ALARM ON.
--- NOTE | 2017-10-16 14:52 | NUR ---
PT RESTLESS AND FIDGETING, GIVEN PRN TRAZADONE PER ORDER. PT EDUCATED ON INDICATIONS AND SIDE EFFECTS. PT DENIES OTHER NEEDS AT THIS TIME. CPAP ON. CHAIR ALARM ON.
--- NOTE | 2017-10-16 15:38 | NUR ---
PT CALLED FOR UPDATE, PROVIDED. PT WALKING IN JOSUE WITH NURSE AIDE AND REGIONAL VICE PRESIDENT [employer] SALES.
--- NOTE | 2017-10-16 16:15 | NUR ---
PT COMPLETED WITH SHOWER, SITTING IN CHAIR. CPAP APPLIED. AT BEDSIDE, PROVIDED WITH UPDATE. PT DENIES OTHER NEEDS AT THIS TIME.
--- NOTE | 2017-10-16 16:58 | NUR ---
PATIENT TOOK A SHOWER. BUT I STOOD BY IN CASE HE NEEDED ANY HELP. SHAMPOOED HIS OWN HAIR. NOW IS SITTING IN HIS CHAIR EATING HIS DINNER.
--- NOTE | 2017-10-16 18:14 | NUR ---
PT ORIENTED TO ALL BUT DATE. PT TOLERATING CPAP WITH FREQUENT REMINDER TO WEAR, LUNG SOUND CLEAR WITH DIMINISHED BASES. PT RESTLESS, WALKED IN JOSUE AND SHOWER HELPED. PT TOLERATING CARDIAC DIET, 1500 ML FLUID RESTRICTION. LACTULOSE DOSE INCREASED TO Q3H UNTIL PT HAS AN ADDITIONAL 2 BOWEL MOVEMENTS TODAY. PT VOIDING QS. WITHOUT IV ACCESS.
--- NOTE | 2017-10-16 19:15 | NUR ---
BEDSIDE REPORT RECEIVED FROM CHIQUITA ATKINSON. BED ALARM ON. PT IS AWAKE, CPAP BACK ON AT THIS TIME. CALL LIGHT IN REACH. NO IV ACCESS.
--- NOTE | 2017-10-16 20:14 | NUR ---
PT ASSESSMENT COMPLETE. EXPIRATORY WHEEZES HEARD UPPER AIRWAYS, LUNGS DIMINISHED IN BASES. PT IS ALERT, ORIENTED TO PERSON, PLACE, EVENT, NOT DATE. 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 PT REFUSES TRIAMCINOLONE PASTE. SPO2 94% ON ROOM AIR. CSM INTACT BUE, BLE, RIGHT PEDAL PULSE FEINT. PT STATES CHRONIC. BED ALARM SET. PT DENIES PAIN, DENIES TOILETING NEEDS AT THIS TIME. CALL LIGHT IN REACH. DISCUSSED 750 ML ALLOTTED FLUID REMAINING.
--- NOTE | 2017-10-16 21:06 | NUR ---
ASSISTED PATIENT UP TO THE BATHROOM. HE AGREES TO CALL FOR ASSISTANCE WHEN HE IS DONE. RT IN ROOM TO ASSESS ALARM ON CPAP MACHINE.
--- NOTE | 2017-10-16 22:00 | NUR ---
RT IN PT ROOM, PT REMOVING CONTINUOUS PULSE OX, EAR PROBE APPLIED AT THIS TIME, PT RIPPING OFF BIPAP MASK, TRYING TO REMOVE EAR PROBE. PT EDUCATION PROVIDED. PT VERBALIZES UNDERSTANDING AND WEAR BIPAP FOR MINIMAL AMTS OF TIME, APPROX 1 MIN. BED ALARM SET.
--- NOTE | 2017-10-16 23:00 | NUR ---
PT UP WALKING AROUND ROOM, BED ALARM DID NOT SOUND. PT ASSISTED TO RESTROOM WITH SBA FOR VOID. BACK IN BED, EAR PROBE ON SPO2 98%. PT GIVEN OLMAN GALNIDO FROM [employer]OW MAKER NOVEMBER AT THIS TIME. INSTRUCTED NOT TO GET OUT OF BED WITHOUT STAFF. PT STATES, "I HAVE MY WAYS". BED ALARM SET.
--- NOTE | 2017-10-16 23:15 | NUR ---
LACTULOSE ADMINISTERED AT THIS TIME, PT EATING ORANGE SHERBERT AND STYROFOAM. INSTRUCTED PT NOT TO EAT CUP AT THIS TIME, MONITORED PT WHILE HE CONSUMED REMAINING SHERBERT. GIVEN UNSWEETENED ICE TEA REQUESTED. BED ALARM SET. NO ADDITIONAL REQUESTS. PT REFUSING BIPAP AT THIS TIME.
--- NOTE | 2017-10-16 23:17 | NUR ---
WENT INTO PTS ROOM SEVERAL TIMES TO PUT BACK ON HIS PULSE OX. PT KEEPS PULLING IT OFF AND SAYING HE DOESN'T KNOW WHY HE IS DOING IT. BEDSIDE TABLE AND CALL LIGHT WITHIN REACH.
--- NOTE | 2017-10-17 00:15 | NUR ---
PRIZE FIGHTER NOVEMBER ASSISTED PT TO RESTROOM FOR VOID, RT IN PT ROOM, ASSISTED TO APPLY BIPAP TO PT, PT COMPLIANT AT THIS TIME. BED ALARM SET.
--- NOTE | 2017-10-17 00:20 | NUR ---
PT OFF BIPAP, RT ANASTASIIA IN ROOM, PT REFUSING TO WEAR AT THIS TIME. WILL ATTEMPT TO REAPPLY MASK. LIGHTS OFF IN ROOM, BED ALARM SET.
--- NOTE | 2017-10-17 00:39 | NUR ---
RESPONDED TO BED ALARM, PT ATTEMPTING TO EXIT BED. ASSISTED PT TO RESTROOM AT THIS TIME FOR VOID. RN PETE IN ROOM TO MONITOR PT.
--- NOTE | 2017-10-17 00:53 | NUR ---
IN PT ROOM, PT BIPAP OFF. ASSISTED PT TO REAPPLY. EDUCATION PROVIDED. PT STATES "I WILL TRY IT AGAIN FOR A WHILE". BED ALARM SET.
--- NOTE | 2017-10-17 01:20 | NUR ---
IN PT ROOM, PULSE OX ALARMING, PT REMOVED PROBE FROM EAR, REAPPLIED. SPO2 93% ON ROOM AIR. BED ALARM IS SET, CURTAIN OPEN FOR CLOSE MONITORING FROM NURSES STATION.
--- NOTE | 2017-10-17 02:02 | NUR ---
SCHEDULED LACTULOSE ADMINISTERED AT THIS TIME, PT AWAKE, ALERT, ORIENTED TO PERSON, PLACE, EVENT, NOT DATE. WHEEZES HEARD IN UPPER LUNG LOBES BILATERALLY, DIMINISHED IN BASES. BIPAP APPLIED AT THIS TIME. PT VERBALIZES UNDERSTANDING. SPO2 95% ON ROOM AIR. PT DENIES PAIN. CONTINUES TO COUGH. CALL LIGHT IN REACH. BED ALARM SET.
--- NOTE | 2017-10-17 02:08 | NUR ---
BIPAP ALARMING, PT STATES "I CAN'T STAND IT". BIPAP IN STANDBY AT THIS TIME. BED ALARM SET.
--- NOTE | 2017-10-17 02:30 | NUR ---
ANSWERED CALL LIGHT, SBA TO RESTROOM FOR BM AND VOID. PT BACK IN BED, PERSONAL SUPPLIES AND CALL LIGHT IN REACH, BED ALARM SET.
--- NOTE | 2017-10-17 03:54 | NUR ---
RESPONDED TO BED ALARM. CLIMBING OVER SIDE RAIL TO USE RESTROOM FOR BM. SBA TO RESTROOM.
--- NOTE | 2017-10-17 04:44 | NUR ---
BED ALARM, PT ATTEMPTING TO EXIT, CANNOT REMEMBER WHY HE WAS GETTING OUT OF BED. REQUESTED WASH CLOTH TO CLEAN UP. BACK IN BED AT THIS TIME. TV ON. BED ALARM SET.
--- NOTE | 2017-10-17 04:59 | NUR ---
BED ALARM SOUNDING, PT STANDING AT SIDE OF BED, ASKING "IS THERE A CASINO AROUND HERE". REORIENTED TO LOCATION, PT STATES "I WAS TRYING TO THINK OF WHERE [facility] IS". PT BACK IN BED, ALARM SET.
--- NOTE | 2017-10-17 05:51 | NUR ---
IN PT ROOM, ASSISTED RT ANASTASIIA TO OBTAIN ABG. PT LUISA WELL, FOLLOWED COMMANDS. PT REQUESTING TO CALL , ASSISTED TO PHONE . PT TALKING WITH ON PHONE. CHAIR ALARM IN PLACE. SPO2 94% ON ROOM AIR. CALL LIGHT AND PERSONAL SUPPLIES IN REACH.
--- NOTE | 2017-10-17 06:03 | NUR ---
PT IMPULSIVE THROUGHOUT SHIFT, OUT OF BED, BED ALARM SET THROUGHOUT SHIFT. PT ORIENTED TO PERSON, PLACE AND EVENT, NOT TO DATE. PT HAS BEEN UP TO RESTROOM FOR 8 BMS THIS SHIFT W SBA, RECEIVING LACTULOSE. PT REFUSING TO WEAR BIPAP THROUGHOUT SHIFT WITH MULTIPLE ATTEMPTS BY NURSING STAFF AND RT TO ENCOURAGE USE, REMOVING MASK INDPENDENTLY AFTER A FEW MINUTES EACH TIME. NO IV ACCESS.
--- NOTE | 2017-10-17 06:22 | NUR ---
CHAIR ALARM SOUNDING. PT ATTEMPTING TO PUT BELONGINGS BACK IN CLOSET. ASSISTED PT WITH TASK, EDUCATED RE CALLING BEFORE GETTING UP. PT BACK IN CHAIR, ALARM IN PLACE.
--- NOTE | 2017-10-17 06:28 | NUR ---
CALL LIGHT ANSWERED. PT REQUESTING MENU FOR BREAKFAST. GIVEN MENU, COFFEE. CALL LIGHT IN REACH, CHAIR ALARM ON.
--- NOTE | 2017-10-17 07:24 | NUR ---
PATIENT WAS IN BED, HIS BED ALARM WENT OFF, HE SAID HE HAD TO GO TO THE BATHROOM, SO HE WENT INTO THE BATHROOM I CHANGED HIS LINENS AND HE WENT BACK TO BED AND IS WAITING FOR BREAKFAST CURRENTLY.
--- NOTE | 2017-10-17 07:30 | NUR ---
BEDSIDE HANDOFF REPORT RECEIVED FROM DEPUTY JUVENILE OFFICER RN. PT RESTING IN BED, BED ALARM ON.
--- NOTE | 2017-10-17 08:40 | NUR ---
PT SITTING ON EDGE OF BED, EATING BREAKFAST, AT BEDSIDE. PT ON ROOM AIR, LUNG SOUNDS CLEAR. PT ORIENTED X3, OFF BY ONE DAY, STATES SHE FEELS HE IS BACK TO HIS BASELINE. PT TOLERATING CARDIAC DIET, GOOD APPETITE. PT WITHOUT EDEMA, CMS INTACT. BOWEL TONES ACTIVE, LACTULOSE GIVEN. PT WITHOUT IV ACCESS. DISCUSSED PLAN OF CARE FOR THE DAY. PT COOPERATIVE WITH CARE. DENIES OTHER NEEDS AT THIS TIME.
--- NOTE | 2017-10-17 10:52 | NUR ---
PATIENT REFUSED SHOWER TODAY.
--- NOTE | 2017-10-17 12:14 | NUR ---
PT CALLED, STATING PT IS UPSET AND ANXIOUS. PT SITTING IN CHAIR EATING LUNCH. DISCUSSED WITH PT WHAT IS UPSETTING HIM, HE STATES HE IS UPSET THAT HIS DOES NOT WANT TO TAKE HIM HOME UNTIL THE DOCTOR SAYS IT IS OK, DISCUSSED WITH PT THAT HE WAS NOT STABLE ENOUGH YESTERDAY TO DISCHARGE BUT HE HAS IMPROVED TODAY AND WE NEED TO HEAR THE DOCTORS RECOMMENDATION, PT UNDERSTANDS. PT DENIES OTHER NEEDS AT THIS TIME.
[2017-10-17] MEDS ORDERED: XIFAXAN550 MG PO (12:28)
[2017-10-17] MEDS ORDERED: LACTULOSE20 GM/30 M PO (12:29)
--- NOTE | 2017-10-17 12:34 | NUR ---
MD TO BEDSIDE TO EVAULATE PT. PLAN TO DISCHARGE TODAY IF FEELS COMFORTABLE WITH PLAN. WAITITNG TO HEAR BACK FROM .
--- NOTE | 2017-10-17 12:45 | NUR ---
PATIENT IS UP IN HIS CHAIR EATING HIS LUNCH. BED LINENS ARE CHANGED.
--- NOTE | 2017-10-17 13:00 | NUR ---
PT SITTING IN CHAIR, EATING LUNCH. PT GIVEN PO POTASSIUM AND LACTULOSE. PT ASSISTED TO BATHROOM. NURSE AIDE AT BEDSIDE.
--- NOTE | 2017-10-19 14:19 | NUR ---
CHW MADE ATTEMPT TO FOLLOW UP WITH PATIENT HE WAS DISCHARGED OVER THE WEEKEND ON Thursday10/17/17. NO ANSWER - LEFT MESSAGE.
--- NOTE | 2017-10-19 14:50 | NUR ---
Heart Failure follow up call #1- LM for patient or SO Kourtney to call my direct line at their convenience.
== END 2017-10-17 15:42 | disposition home or self-care (01) | DRG 292 ==
LOC: ED 09:29 → MS 12:58
PROVIDERS: ADMIT Internal Medicine
DX: I50.33 Acute on chronic diastolic (congestive) heart failure (principal); J96.11 Chronic respiratory failure with hypoxia; I35.0 Nonrheumatic aortic (valve) stenosis; K70.40 Alcoholic hepatic failure without coma; F10.21 Alcohol dependence, in remission; K21.9 Gastro-esophageal reflux disease without esophagitis; G25.81 Restless legs syndrome; G47.33 Obstructive sleep apnea (adult) (pediatric); G89.29 Other chronic pain; M54.9 Dorsalgia, unspecified; D69.6 Thrombocytopenia, unspecified; I44.7 Left bundle-branch block, unspecified
CPT/HCPCS: 36415; 36600; 71046; 80048; 80053; 81001; 82140; 82803; 83735; 83880; 84484; 85025; 85610; 93005; 93010; 93306; 94640; 94660; 94760; 94762; 97162; J2930

== ENCOUNTER 2017-11-01 08:36 | Emergency (ER) | payer MEDICARE, OTHER ==
[~2017-11-01] VITALS: Ht 177.8 cm; Wt 127.5 kg
[~2017-11-01 08:36] MED LIST changes: +CYCLOBENZAPRINE10 MG PO; +MAGNESIUM250 M1 PO; +NEURONTIN100 MG PO; +POTASSIUM99 M1 PO; +PROPRANOLOL HCL10 MG PO
--- OUTSIDE RECORDS SUMMARY | 2017-11-01 08:57 | XMS | Clinical Summary ---
Demographics + + + | Address | [address] | | | [address] | | | [place] [address] | + + + | Home Phone | | + + + | Preferred Language | Unknown | + + + | Marital Status | | + + + | Jew Affiliation | SPIRITISM | + + + | Race | [...] | + + + + + | PB LEWIS | ECON | [address] | | | | | [place] [address] | | + + + + + | DERIC BOOGIE | ECON | Unknown | | + + + + + | JOSE MARTINEZ | ECON | Unknown | | + + + + + Care Team Providers + +------+ + | Care Anesthesiology Fellow Name | Role | Phone | + [...] tablet by | 90 | 3 | / | | Activ | | 40 mg [...] + + + + | Hemorrhagic shock (HCC) | 05/27/2012 | + + + | [...] | | lung volumes and volume overload 09/18 liver disease. Both | | improved after [...] Screening | | | | | | 5 | | | + + + + + | Colon Cancer | | | | | Screening | 5 | | | + + + + + | Zoster Vaccine (#1) | | | | | | 5 | | | + + + + + | Pneumo 65+ (2 of 2 - | | 04/11/2011 | | | PCV13) | 2 | | | + + + + + | Diabetes Mellitus | | 09/08/2013, 09/15/2012, | | | Screening | 7 | 07/26/2012, Additional history | | | | | exists | | + + + + + | IMM Influenza (#1) | | | | | | 7 | | | + + + + + | Tetanus | | 04/25/2011 | | | | 1 | | | + + + + + | Hep C Ab Screening | Completed | 04/09/2011 | | + + + + + [...] W L GORE | | 07/27/ | [id number] | | Cm *[id number] - | robin | | | | 2013 | 275 / | | [id number]: Qty: 1 on | IMP | | | | | /[id number] | | 05/27/2012 by Isma Curiel | [...] + + | MEDICARE | MEDICA | [id number] | Medica | [id number] | [address] | | | RE A & | | re | [phone] | [place] [address] | | | B | | | | | + +--------+ +--------+ + + | [employer] [place] | M[employer]UAL | [id number] | Indemn | [phone] | [employer] [place] | | | OF | | ity | [phone] | [address] | | | [place] | | | | [phone] | + +--------+ +--------+ + + + +--------+ +--------+ + + | Guarantor Name | Accoun | Relation to | Date | Phone | Billing Address | | | t Type | Patient | of | | | | | | | | | | + +--------+ +--------+ + + | ISMA LEWIS | Person | Self [birth year] | 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 For more information, please contact:[email or web address] [place] [address]
--- OUTSIDE RECORDS SUMMARY | 2017-11-01 08:57 | XMS | Clinical Summary ---
Demographics + + + | Address | [address] | | | [address] | | | [place] [address] | + + + | Home Phone | | + + + | Preferred Language | Unknown | + + + | Marital Status | | + + + | Gnosticism Affiliation | ZOROASTRIANISM | + + + | Race | [...] | | | | | [place] [address] | | + + + + + | DERIC BOOGIE | ECON | Unknown | | + + + + + | JOSE MARTINEZ | ECON | Unknown | | + + + + + Care Team Providers + +------+ + | Care Manager Manufacturing Name | Role | Phone | + [...] W L GORE | | [birth year] | [id number] | | Cm *[id number] - | robin | | | | 2013 | 275 / | | [id number]: Qty: 1 on | IMP | | | | | /[id number] | | 05/27/2012 by Isma Curiel | [...] + + | MEDICARE | MEDICA | [id number] | Medica | [phone] | [address] | | | RE A & | | re | [phone] | [place] [phone] | | | B | | | | | + +--------+ +--------+ + + | [employer] [place] | MUTUAL | [id number] | Indemn | [phone] | [employer] [place] | | | OF | | ity | [phone] | [address] | | | [place] | | | | [phone] | + +--------+ +--------+ + + + [...] | | | [phone]: | [place] [address] | | | | | | | | | | | | | [phone] | | | | | | | [phone] | | + +--------+ +--------+ + + Advance Directives Patient has advance directives. For more information, please contact:[employer] [place] [address]
[2017-11-01] MEDS ORDERED: LASIX20 MG PO (10:56)
--- NOTE | 2017-11-01 17:59 | EKG ---
[facility] [address] [facility] [place] [address] Signed Sinus rhythm with occasional premature ventricular complexes Left bundle branch block Abnormal ECG When compared with ECG of 10-OCT-2017 09:50, premature ventricular complexes are now present Nonspecific T wave abnormality now evident in Inferior leads Nonspecific T wave abnormality, improved in Lateral leads Confirmed by WILY CRUZ MD ([id number]) on 11/01/2017 5:59:26 PM Electronically Signed By: WILY CRUZ MD 11/01/17 1759 PATIENT NAME: ISMA DELGADILLO Electrocardiogram DATE OF : 45 PHYSICIAN: WILY CRUZ MD REPORT #: [id number] REPORT IS CONFIDENTIAL AND NOT TO BE RELEASED WITHOUT AUTHORIZATION
== END 2017-11-01 11:12 | disposition home or self-care (01) ==
LOC: ED 08:36
DX: I50.9 Heart failure, unspecified (principal); Z87.891 Personal history of nicotine dependence; Z88.5 Allergy status to narcotic agent; Z88.7 Allergy status to serum and vaccine; Z79.899 Other long term (current) drug therapy
CPT/HCPCS: 71045; 80053; 83880; 84484; 85025; 85610; 93005; 93010; 99284

== ENCOUNTER 2017-11-07 05:34 | Inpatient (IN) | payer MEDICARE, OTHER ==
[~2017-11-07] VITALS: Ht 177.8 cm; Wt 130.3 kg
--- OUTSIDE RECORDS SUMMARY | ~2017-11-07 | XMS | Clinical Summary ---
Demographics + + + | Address | [address] | | | [address] | | | [place] [address] | + + + | Home Phone | | + + + | Preferred Language | Unknown | + + + | Marital Status | | + + + | Scientologist Affiliation | CONFUCIANIST | + + + [...] | | | | | [place] [address] | | + + + + + | DERIC BOOGIE | ECON | Unknown | | + + + + + | JOSE MARTINEZ | ECON | Unknown | | + + + + + Care Team Providers + +------+ + | Care Mechanical Engineer Name | Role | Phone | + [...] W L GORE | | 07[birth year] | [id number] | | Cm *[id number] - | robin | | | | 2013 | 275 / | | [id number]: Qty: 1 on | IMP | | | | | /[id number] | | 05/27/2012 by Isma Curiel | [...] + + | MEDICARE | MEDICA | [id number] | Medica | [phone] | [address] | | | RE A & | | re | [phone] | [place] [phone] | | | B | | | | | + +--------+ +--------+ + + | [employer] [place] | MUTUAL | [id number] | Indemn | [phone] | [employer] [place] | | | OF | | ity | [phone] | [place] [address] | | | [place] | | | | [phone] | + +--------+ +--------+ + + + +--------+ +--------+ + + | Guarantor Name | Accoun | Relation to | Date | Phone | Billing Address | | | t Type | Patient | of | | | | | | | | | | + +--------+ +--------+ + + | IMSA LEWIS | Person | Self | [birth year] | Work: | [address] | | | al/Fam | | [phone] | [phone] | [address] [place], | | | [place] | | | [phone]: | [place] [address] | | | | | | | | | | | | | [phone] | | | | | | | [phone] | | + +--------+ +--------+ + + Advance Directives Patient has advance directives. For more information, please contact:[employer] [place] [address]
[~2017-11-07 05:34] MED LIST changes: +LASIX20 MG PO
--- NOTE | 2017-11-07 09:35 | NUR ---
ASSUMED CARE OF PT. ADMIT ASSESSMENT COMPLETE. PT VERY WHEEZY, AUDIBLE ON EXHALE FROM SEVERAL FEET AWAY. PT VERY RESTLESS, SHIFTING WEIGHT, MOVING LEGS. PT DENIES NEED FOR ASSISTANCE, UNSTEADY ON FEET, IMPULSIVE. BED ALARM ON. ALERT AND OREIENTED X4. IS BRINGING IN HOME CPAP FOR USE WHILE SLEEPING. WILL ADVISE RT WHEN CPAP IS HERE.
--- NOTE | 2017-11-07 10:31 | NUR ---
PT SPOUSE BROUGHT IN CPAP MACHINE. RT IN ROOM TO SET IT UP.
--- NOTE | 2017-11-07 10:56 | NUR ---
PT AMBULATED TO THE BATHROOM AND BACK TO BED. PT WAS SWITCHED OVER TO CPAP. PT NOW RESTING IN BED. VS AND I&O'S TAKEN AND DOCUMENTED. DENTURES WERE REMOVED AND PUT IN A CUP TO SOAK. BED ALARM HAS BEEN SET. CALL LIGHT IS IN REACH.
--- NOTE | 2017-11-07 14:17 | NUR ---
PT IS STILL SLEEPING SOUNDLY. HOLDING LACTULOSE UNTIL HE WAKES D/T AGITATION. CPAP ON, O2 IN MID-90S.
--- NOTE | 2017-11-07 15:04 | NUR ---
PT IS RESTING IN BED. BP NOT TAKEN TO LET PT REST, PER RN. CALL LIGHT IS IN REACH.
--- NOTE | 2017-11-07 16:05 | NUR ---
MOVED PT TO ROOM 121 DUE TO NEEDING CLOSER SUPERVISION. PT REQUESTED TO GO TO BATHROOM, UNABLE TO WAKE UP AND BE COHERANT. PT ROLLED TO NEW ROOM IN BED. PT ROLLED TO HIS SIDE, WHICH SEEMED TO DECREASE HIS WORK OF BREATHING AND DECREASE HIS RESTLESSNESS. PT SLEEPING SOUNDLY, BREATHING EVEN AND UNLABORED AT THIS TIME. PT O2 BLEED IN TO CPAP DECREASED TO 1L. MAINTAINING SATS AT 92-93%. ALL PERSONAL BELONGINGS MOVED WITH PT.
--- NOTE | 2017-11-07 17:14 | NUR ---
RN AND CHANNEL INSTALLER CHANGED PT INTO ATTEND. PT SLIGHTLY RESPONSIVE. CPAP IN PLACE WITH 2L BLEED IN. PT TOLERATING WELL.
--- NOTE | 2017-11-07 17:24 | NUR ---
PT IS REMOVING CPAP. HE IS RESTLESS, BUT NOT ABLE TO OPEN HIS EYES OR SPEAK COHERANTLY.
--- NOTE | 2017-11-07 17:31 | NUR ---
PT TOLD PUBLIC INFORMATION DIRECTOR THAT HE IS DELIROUS. PUBLIC INFORMATION DIRECTOR WAS ABLE TO REDIRECT PT. PT DOES NOT WANT TO EAT DINNER AT THIS TIME. DOES NOT WANT TO KEEP O2 ON.
--- NOTE | 2017-11-07 18:36 | NUR ---
PT HAD INCREASING CONFUSION, RESTLESSNESS, AND AGITATION THIS AFTERNOON. CLEARED APROX 1745 WHEN PT WOKE FROM SLEEPING. PT HAS LACTULOSE CHRONICLLY. HAD ONE EXTRA LARGE BM. CPAP WHILE SLEEPING WITH O2 BLEED IN AT 2L. O2 TO KEEP O2 >90%.
--- NOTE | 2017-11-07 19:15 | NUR ---
RECEIVED REPORT FROM RN. PATIENT IS RESTING COMFORTABLY IN BED, BREATHING IS EVEN AND UNLABORED. O2 SATURATION IS 94% ON 1L O2 VIA NC. DENIES NEEDS AT THIS TIME. CALL LIGHT WITHIN REACH., AT BEDSIDE.
--- NOTE | 2017-11-07 19:30 | NUR ---
ROUNDED CHARGE. PATIENT IS RESTING IN BED. PATIENT DENIES ANY NEEDS. RN IN ROOM RECEIVING BED SIDE REPORT. CALL LIGHT IN REACH.
--- NOTE | 2017-11-07 19:39 | NUR ---
ASSISTED PATIENT TO BATHROOM WITH SBA. TOLERATING AMBULATION WELL. NOW RESTING COMFORTABLY IN BED, PATIENT IS SHORT OF BREATH. PATIENT DENIES DISCOMFORT. O2 SATURATION IS 92% ON 1L O2 VIA NC. DENIES NEEDS AT THIS TIME. CALL LIGHT WITHIN REACH, BED ALARM ON.
--- NOTE | 2017-11-07 21:20 | NUR ---
PATIENT GIVEN MEDICATION PER ORDER. PATIENT IS HAVING A HARD TIME AWAKENING TO TAKE MEDICATIONS PATIENT REPOSTIIONED IN BED. PATIENT REQUIRED MULTIPLE ATTEMPTS TO GET HIM TO TAKE HIS MEDICATION. PATIENT IS NOW RESTING IN BED WITH BED ALARM ON. CALL LIGHT IN REACH.
--- NOTE | 2017-11-07 22:16 | NUR ---
PATIENT RESTING IN BED, BREATHING IS EVEN AND UNLABORED. CURRENTLY WEARING CPAP WITHOUT ANY AGITATION. WILL MONITOR. O2 SATURATION IS 90% WITH 2L O2 BLEED IN. FLACC SCORE OF 0. CALL LIGHT WITHIN REACH.
--- NOTE | 2017-11-08 00:10 | NUR ---
PATIENTS PULSE OX WAS ALARMING. PATIENT TOOK OFF CPAP. PATIENT PLACED BACK ON CPAP. PATIENT IS VERY DROWSY. CALL LIGHT IN REACH. AND BED ALARM IS ON. CALL
--- NOTE | 2017-11-08 00:25 | NUR ---
PATIENT RESTING COMFORTABLY IN BED, BREATHING IS EVEN AND UNLABORED. O2 SATURATION IS 86% ON 2L O2 THROUGH CPAP. RT NOTIFIED, TO BE EVALUATED BY RT PER ANASTASIIA. WILL CONTINUE TO MONITOR.
--- NOTE | 2017-11-08 00:40 | NUR ---
RT TO EVALUATE PATIENT. MASK REPOSITIONED AND PULSE OX PLACED ON FOREHEAD. O2 SATURATION IS 91% ON 2L BLEED IN THROUGH CPAP. PATIENT RESTING COMFORTABLY. CALL LIGHT WITHIN REACH, BED ALARM ON.
--- NOTE | 2017-11-08 01:53 | NUR ---
PATIENT RESTING COMFORTABLY IN BED, BREATHING IS EVEN AND UNLABORED. O2 SATURATION IS 92% ON 2L THROUGH CPAP, TITRATED O2 DOWN TO 1L THROUGH CPAP. ASSESSMENT DONE, CALL LIGHT WITHIN REACH, BED ALARM ON.
--- NOTE | 2017-11-08 04:20 | NUR ---
PATIENT'S NIGHT WAS UNEVENTFUL. HE HAS BEEN RESTING COMFORTABLY THROUGHOUT SHIFT. VSS, URINE OUTPUT BORDERLINE LOW, BUT QUANTITY SUFFICIENT. NO COMPLAINTS OF PAIN. DISORIENTED TO PLACE AND TIME DURING NIGHT, EXHIBITS GARBLED SPEECH AT NIGHT. HAS HEART MURMUR, TRACE EDEMA IN BLE. LUNGS ARE CLEAR, DIM IN BASES. TOLERATED CPAP WELL, TITRATED O2 BETWEEN 1 AND 2 L TO KEEP O2 SATURATION BETWEEN 88 NAD 90% PER ORDER FROM DR. BUENROSTRO. HAD 2 LOOSE BOWEL MOVEMENTS THIS SHIFT. PATIENT CAN BE SBA TO BATHROOM WHEN ALERT AND AWAKE, REQUIRES 2PA WHEN DROWSY. IV IS SALINE LOCKED. ON 1800 ML FLUID RESTRICTION. NO ACUTE CHANGES FROM BEGINNING OF SHIFT.
--- NOTE | 2017-11-08 04:31 | NUR ---
PATIENT RESTING COMFORTABLY IN BED, BREATHING IS EVEN AND UNLABORED. O2 SATURATION IS 93% ON 2L THROUGH CPAP, TITRATED O2 TO 1L. DOES NOT TOLERATED CPAP WITHOUT O2, SATS DROP TO LOW 80s. CALL LIGHT WITHIN REACH, BED ALARM ON.
--- NOTE | 2017-11-08 06:42 | NUR ---
ASSISTED PATIENT TO BATHROOM WITH SBA. NOW RESTING COMFORTABLY IN BED, BREATHING IS EVEN AND UNLABORED. O2 SATURATION IS 94% ON 1L O2 VIA NC. TITRATED TO ROOM AIR. DENINES NEEDS AT THIS TIME. CALL LIGHT WITHIN REACH, BED ALARM ON.
--- NOTE | 2017-11-08 06:57 | NUR ---
UPDATED DR. BUENROSTRO REGARDING PATIENT'S LOW URINE OUTPUT. NO NEW ORDERS AT THIS TIME.
--- NOTE | 2017-11-08 07:26 | EKG ---
[facility] [address] [facility] [place] [address] Signed Sinus rhythm with premature atrial complexes Nonspecific intraventricular block Cannot rule out Anteroseptal infarct , age undetermined T wave abnormality, consider inferior ischemia Abnormal ECG When compared with ECG of 01-NOV-2017 08:46, premature ventricular complexes are no longer present premature atrial complexes are now present Inverted T waves have replaced nonspecific T wave abnormality in Inferior leads T wave inversion now evident in Lateral leads Confirmed by MK BUENROSTRO MD ([id number]) on 11/08/2017 7:26:04 AM Electronically Signed By: MK BUENROSTRO MD 11/08/17 0726 PATIENT NAME: ISMA DELGADILLO Electrocardiogram DATE OF : 45 PHYSICIAN: MK BUENROSTRO MD REPORT #: [id number] REPORT IS CONFIDENTIAL AND NOT TO BE RELEASED WITHOUT AUTHORIZATION
--- NOTE | 2017-11-08 09:45 | NUR ---
PT'S VITALS AND I&O'S TAKEN AND DOCUMENTED. PT IS SITTING UP IN CHAIR WATCHING TV AT THIS TIME. CALL LIGHT IS IN REACH.
--- NOTE | 2017-11-08 17:30 | NUR ---
Medications reconciled with patient and . Patient has not been taking the rifaxamin ordered from last visit. It was stressed how crucial the medication was for the patient. They attest that they will begin the PA process with his provider right away. Clarified that he does not take propranolol, as it was prescribed short term by an ER Dr in [facility].
--- NOTE | 2017-11-08 18:16 | NUR ---
PT DOING WELL EATTING
--- NOTE | 2017-11-08 18:27 | NUR ---
ALVARO, PHARMACIST, CALLED TO LET RN KNOW SHE FORGOT TO LEAVE A NOTE FOR DR BUENROSTRO. DURING MED REQ, PT AND SPOUSE TOLD ALVARO THAT THE PROPRANAOL ORDER ON HIS OCT IS A SHORT TERM MEDICATION FROM THE ER DOCTOR IN [place] PRIOR TO HIS LAST ADMISSION. ALVARO WAS WONDERING IF THAT WAS STILL AN APPROPRIATE MEDICATION. RN CALLED DR BUENROSTRO WHO ADVISED THAT MEDICATION IS USED IN END STAGE LIVER PTS FOR OTHER THINGS AND IT IS AN APPROPRIATE MEDICATION.
--- NOTE | 2017-11-08 19:20 | NUR ---
SHIFT REPORT RECEIVED. PATIENT RESTING IN BED. O2 SAT 90% ON RA. HE IS ASKING FOR ICE CREAM. DISCUSSED PATIENT'S FLUID RESTRICTION WITH HIM AND HE AGREES TO SAVE HIS LAST 300MLS OF FLUIDS FOR WATER. HE DENIES ANY OTHER NEEDS AT THIS TIME. CALL LIGHT IN REACH.
--- NOTE | 2017-11-08 20:30 | NUR ---
EVENING MEDS GIVEN PER ORDER. PATIENT CONCERNED ABOUT POTASSIUM LEVELS, EVEN WITH EDUCATION OF HIS LAB VALUES. HE REQUESTED A BANANA AND PLATE AND WELD INSPECTOR BROUGHT THAT TO THE ROOM. PATIENT IS AAOX4. HIS SPEECH IS SLURRED SLIGHTLY AND DIFFICULT TO UNDERSTAND AT TIMES. PATIENT IS TELLING JOKES AND IN A GOOD MOOD. HIS LUNG SOUNDS ARE CLEAR, DIMINISHED. HIS O2 IS 88% ON RA. ABD IS ROUND, FIRM, NONTENDER, BOWEL SOUNDS ACTIVE. TRACE EDEMA NOTED IN ANKLES&FEET. RT IN ROOM TO SET UP CPAP, PATIENT IS ASKING TO WEAR IT AND COMPLIANT WITH IT. NO O2 BLEED IN RIGHT NOW.
--- NOTE | 2017-11-09 00:48 | NUR ---
PATIENT HAS BEEN USING HIS CALL LIGHT FREQUENTLY TO GET UP TO THE BATHROOM, TO TAKE HIS CPAP OFF, TO ASK FOR WATER, ETC. KANG LAN HAS BEEN PROVIDING CARE. HOWEVER, THE PATIENT IS UPSET THAT HE CANNOT HAVE A DIET COKE DUE TO HIS FLUID RESTRICTION BEING COMPLETED FOR THE NIGHT. RN HAD A LONG DISCUSSION WITH THE PATIENT ABOUT THE NEED FOR HIS FLUID RESTRICTION AND THE DOCUMENTING PROCESS. THE PATIENT WAS REQUESTING THAT THE RN CALL THE DOCTOR OR THE DAYSHIFT RN TO TALK ABOUT HOW FLUIDS HAVE BEEN WRONGLY DOCUMENTED. RN AGREES TO GIVE THE PATIENT 50MLS OF FLUIDS TO LAST HIM UNTIL MORNING AND HE WAS ABLE TO SETTLE BACK DOWN AND REST. HE IS WEARING HIS CPAP AT THIS TIME. CALL LIGHT IN HAND.
--- NOTE | 2017-11-09 02:18 | NUR ---
PATIENT HAS BEEN TOLERATING HIS CPAP AND APPEARS TO BE SLEEPING SOUNDLY. O2 SAT 89%.
--- NOTE | 2017-11-09 04:10 | NUR ---
PATIENT'S BED ALARM GOING OFF BECAUSE HE ROLLED OVER. RESET ALARM. PATIENT HAD TAKEN HIS CPAP OFF, O2 SAT 80% ON RA. REPOSITIONED PATIENT UP IN THE BED, PLACED CPAP WITH ASSIST OF RT. PATIENT RESTING IN BED NOW. CALL LIGHT IN REACH.
--- NOTE | 2017-11-09 05:30 | NUR ---
ASSISTED PATIENT UP TO THE BATHROOM. HE REPORTS THAT HE SLEPT BETTER THAN HE HAD PREVIOSULY AND WAS PROUD OF HOW MUCH HE WORE HIS CPAP. PATIENT IS PLESANT AND APPRICIATIVE OF CARE THIS MORNING. DAILY WT PERFORMED, PATIENT HAD A WEIGHT GAIN FROM YESTERDAY. HE IS NOW BACK IN BED TO WATCH TV. NO CPAP AT THIS TIME.
--- NOTE | 2017-11-09 05:43 | NUR ---
PATIENT SLEPT MORE LAST NIGHT THAN HAD THE PREVIOUS SHIFT. HE WORE THE CPAP THE MAJORITY OF THE TIME. O2 SATS WOULD DIP TO LOW 80'S WHILE SLEEPING WITHOUT CPAP. WHILE AWAKE PATIENT TOLERATES ROOM AIR. PATIENT'S URINE OUTPUT IS QS. DAILY WT THIS MORNING SHOWS A WEIGHT GAIN. PATIENT IS ORIENTED X4, SLURRED SPEECH.
--- NOTE | 2017-11-09 07:37 | NUR ---
RECIEVED BEDSIDE REPORT FROM CHIQUITA WALTERS. PT SLEEPING, CPAP OFF, O2 IN MID-70S. REPLACED CPAP, O2 WENT UP TO LOW 90S. PT DID NOT WAKE WHEN CPAP WAS REPLACED.
--- NOTE | 2017-11-09 07:39 | NUR ---
PATIENT RESTING IN BED WITH EYES CLOSED AND CPAP ON.
--- NOTE | 2017-11-09 09:30 | NUR ---
PATIENT RESTING IN BED, EYES CLOSED. PATIENT HAD MOVED C-PAP OFF FACE. KANG VITALE MOVED C-PAP BACK ON TO PATIENTS FACE. PATIENT TO SLEEPY TO EAT AT THIS TIME. NOTIFIED RN OF PATIENTS SLEEPY BEHAVIORS. CALL LIGHT IN REACH. NO OTHER NEEDS AT THIS TIME.
--- NOTE | 2017-11-09 11:01 | NUR ---
PATIENT UP WORKING WITH PT.
--- NOTE | 2017-11-09 11:14 | NUR ---
PATIENT SITTING UP IN CHAIR AFTER WORKING WITH PT. PATIENT WATCHING TV. PATIENT REFUSED TO WASH FACE, HANDS, AND ORAL CARE. LINENS STRIPPED FROM BED. CALL BUTTON IN REACH. NO OTHER NEEDS AT THIS TIME.
--- NOTE | 2017-11-09 12:57 | NUR ---
PT REQUESTED ICE CREAM. HE IS OVER HIS FLUID RESTRICTION, SO ALTERNATVES WERE OFFERED. PT AGREED TO HAVE ANNABELLA CRACKERS. PT HAS PLAN TO GO HOME THIS AFTERNOON. RN TOLD HIM THAT HE WAS GETTING BETTER BUT NOT READY TO GO HOME YET.
--- NOTE | 2017-11-09 13:00 | NUR ---
PT SITTING IN CHAIR, INVITED ME IN. I FOUND PT TO BE FRIENDLY, AND WE BEGAN TO VISIT, HE BEGAN TO LOSE TRACK OF HIS THOUGHTS SEVERAL TIMES. PT SEEMED TO BE AWARE, BUT STRUGGLED ONCE OR TWICE TO RETURN TO HIS ORIGIONAL THOUGHT. PT REQUESTED PRAYER, AND ASKED ME TO COME BACK AGAIN. WILL FOLLOW NEEDED
--- NOTE | 2017-11-09 13:37 | NUR ---
PATIENT SITTING UP IN BEDSIDE RECLINER. PATIENT AND CENTRIFUGAL CHILLER TECHNICIAN STILL DISCUSSING SHOWER. PATIENT REQUESTED TO WAIT UNTIL TOMORROW. CENTRIFUGAL CHILLER TECHNICIAN WILL REAPPROACH FOR SHOWER LATER. CALL LIGHT IN REACH. NO OTHER NEEDS AT THIS TIME.
--- NOTE | 2017-11-09 15:30 | NUR ---
PATIENT UP TO BATHROOM BACK TO BED, ONE PERSON ASSIST. CALL LIGHT IN REACH. IN ROOM. NO OTHER NEEDS AT THIS TIME.
--- NOTE | 2017-11-09 15:34 | NUR ---
PT RESTING IN BED WITH CPAP ON. AT BEDSIDE. PT REQUESTS TO GO HOME, EDUCATED ON PLAN OF CARE AND GOALS FOR DISCHARGE. PT AGREES TO PLAN.
--- NOTE | 2017-11-09 17:15 | NUR ---
Certified Heart Failure Nurse Notes: Diagnosis: HFpEF, heaptic encephalopathy, respiratory failure 2nd to JOVAN PCP: Patient states would not mind continuing on with Dr Fontenot as a PCP. Last seen by Chico CLAYTON in walk in clinic. Conferred with Mary Alice Thornton RN Case Manager concerning establishing with a PCP that takes complex medical issues. Admit Wt.: 281 lb Today's Wt.: 288lb Admit BNP: 711 Social support system: Significant other Kourtney is at bedside. Weight monitoring: Has home scales. States went to ED when weight went up since he doesn't currently have a PCP. Discussed importance of early ID and treatment. Diet: Denies use of table salt. Asked S.O. it identify sources of hidden salt of foods patient frequently has so we can assist in finding alternatives. She reports they have worked on it,but was not specific. Medication routine:Assist by S.O. Advanced directive: Has a POLST on record Barriers to self-care include: recent confusion and JOVAN Follow-up plans: Will return to work on sodium and PCP appointments. Ask RT to educate Kourtney on use of home CPAP settings. Teaching materials given- HF packet book were given last month's visit.
--- NOTE | 2017-11-09 18:23 | NUR ---
PATIENT SITTING UP IN BED, REQUESTED ICE CREAM, NOTIFIED RN OF REQUEST BECAUSE IT PUTS HIM OVER FLUID RESTRICTIONS. WATER ON BEDSIDE TABLE, CALL LIGHT IN REACH, NO OTHER NEEDS AT THIS TIME.
--- NOTE | 2017-11-09 18:25 | NUR ---
PT A&O X4 THIS SHIFT. WORE CPAP WHILE SLEEPING, MAINTAINED O2 ON ROOM AIR WHILE AWAKE. PT REQUESTED ICE CREAM MULTIPLE TIMES, EXPLAINED THAT HE NEEDS TO DRINK HIS FLUIDS RATHER THAN EAT IT. PT AGREED TO LIMIT ICE CREAM. PT VOIDING WELL, PO LASIX. CHRONIC LACTULOSE QID, FREQUENT LOOSE STOOLS.
--- NOTE | 2017-11-09 18:53 | NUR ---
THIS CERTIFIED REGISTERED DENTAL ASSISTANT MADE A PLAN WITH THE PATIENT TO SHOWER TOMORROW AT 0830. PATIENT AGREED AND THIS CERTIFIED REGISTERED DENTAL ASSISTANT WROTE PLAN ON THE [facility] WHITE BOARD.
--- NOTE | 2017-11-09 19:05 | NUR ---
IN ROOM FOR REPORT, PT IS RESTING WITH EYES CLOSED, RESPIRATIONS EVEN AND NONLABORED. CALL LIGHT IS WITHIN REACH.
--- NOTE | 2017-11-09 20:55 | NUR ---
PT IS AWAKE IN BED, REMOVED CPAP TO TAKE EVENING MEDS AND COMPLETE ASSESSMENT. CPAP BACK ON AT THIS TIME, PT DENIES FURTHER NEEDS.
--- NOTE | 2017-11-09 22:04 | NUR ---
STANDBY ASSIST PATIENT TO THE BATHROOM AND BACK TO BED. CONTINUOUS PULSE OX AND CPAP ARE BACK ON. CALL LIGHT WITHIN REACH.
--- NOTE | 2017-11-10 00:02 | NUR ---
STANDBY ASSIST TO THE BATHROOM AND BACK TO BED. CALL LIGHT WITHIN REACH.
--- NOTE | 2017-11-10 00:45 | NUR ---
PATIENT CALLED TO USE THE BATHROOM. STANDBY ASSIST.PATIENT IS BACK IN BED. CPAP AND CONYINUOUS PULSE OXIMETRY ARE BACK ON. CALL LIGHT WITHIN REACH.
--- NOTE | 2017-11-10 01:51 | NUR ---
PT IS RESTING WITH EYES CLOSED, RESPIRATIONS EVEN AND NONLABORED ON CPAP. CALL LIGHT IS WITHIN REACH.
--- NOTE | 2017-11-10 03:31 | NUR ---
PT HELPED TO RESTROOM BY BREAKER ENGINEER AND BACK IN BED.
--- NOTE | 2017-11-10 03:47 | NUR ---
BROUGHT PT [facility], HE DENIES FURTHER NEEDS AT THIS TIME. CALL LIGHT IS WITHIN REACH AND BEDALARM IS ON.
--- NOTE | 2017-11-10 05:37 | NUR ---
CPAP WAS IN PLACE WHILE PT SLEPT, MAINTAINING 02 BETWEEN 88-90%. PT TRIED TO GET OUT OF BED WITHOUT HELP ONCE AND IS A STANDBY ASSIST. PT IS ON CARDIAC DIET WITH 1800 ML RESTRICTION, PT'S WEIGHT DECREASED TO 287.9 THIS MORNING.
--- NOTE | 2017-11-10 07:37 | NUR ---
RECIEVED BEDSIDE REPORT FROM CHIQUITA JAMES. PT AWAKE AND ALERT IN BED, HOME CPAP OFF. O2 AT 91% ON ROOM AIR. PT AGREES TO SHOWER AT 0830. RESTARTED PT FLUID COUNT WITH 300 ML FREE WATER.
--- NOTE | 2017-11-10 08:10 | NUR ---
THIS FOOD PROCESSING PLANT MANAGER ASSISTED PATIENT FROM THE BED TO THE RESTROOM. 1PLEAH CORDEROA.
--- NOTE | 2017-11-10 08:48 | NUR ---
PATIENT UP TO SHOWER WITH CHEMICAL DEPENDENCY ATTENDANT ASSISTING. PATIENT UP TO SINK BRUSHING TEETH. LINENS CHANGED. PATIENT BACK UP TO CHAIR. IN ROOM. CALL BUTTON IN REACH. NO OTHER NEEDS AT THIS TIME.
[2017-11-10] MEDS ORDERED: FUROSEMIDE20 MG PO (10:23)
--- NOTE | 2017-11-10 12:30 | NUR ---
THIS COMMERCIAL LENDING VICE PRESIDENT ASSISTED PATIENT TO THE RESTROOM. 1 PERSON SBA.
--- NOTE | 2017-11-10 13:06 | NUR ---
PATIENT SITTING ON BEDSIDE WITH . ASSISTED PATIENT TO LAY BACK DOWN IN BED. CALL LIGHT IN REACH. BED ALARM ON. NO OTHER NEEDS AT THIS TIME.
--- NOTE | 2017-11-10 14:23 | NUR ---
PT SITTING ON SIDE OF BED, NIBBLING ON SOME FRUIT. HE SEEMS MUCH MORE ALERT AND ORIENTED TODAY. PT THANKED ME FOR COMING IN, AND MENTIONED THAT HE DID FEEL BETTER TODAY. STAFF CAME IN FOR AFTERNOON ROUNDING, PT SEEMS ABLE TO PROCESS QUESTIONS POSED TO HIM IN PREP FOR DC. PT REQUESTED PRAYER, WILL FOLLOW NEEDED
--- NOTE | 2017-11-10 14:37 | NUR ---
THIS SITE ADMINISTRATOR ASSISTED PATIENT TO THE RESTROOM. 1 PERSON SBA.
--- NOTE | 2017-11-10 14:37 | NUR ---
CHFN notes: Patients was able to state basics of what heart failure is and was able to ID some high salt foods. Teach back used to reinforce details of low sodium diet and fluid restrictions. Dietary handouts given. Kourtney DODSON does most of the cooking. Was not able to verbalize symptoms to report or why. Patient receptive to information. Will set up an outpatient visit with patient and SO.
--- NOTE | 2017-11-10 14:52 | NUR ---
patient back to bed from bathroom with one person assist. call button in reach no other needs at this time.
--- NOTE | 2017-11-10 17:55 | NUR ---
PATIENT SITTING UP IN BED. ASSISTED PATIENT TO SCOOT UP IN BED AND REPOSITION. TURNED BED ALARM ON. PATIENT REQUESTED TO HAVE A URINAL ON BEDSIDE TABLE FOR THE NIGHT. CALL LIGHT IN REACH. NO OTHER NEEDS AT THIS TIME.
--- NOTE | 2017-11-10 18:28 | NUR ---
PT MORE COMPLIANT WITH FLUID RESTRICTIONS. PT AND PARTCIPATED WITH LOKESH HEART FAILURE RN IN DIET AND EXERCISE EDUCATION. PT VOIDING WELL, DR CRUZ INCREASED DIURETICS. MULTIPLE SOFT BM WITH CHRONIC LACTULOSE. PT MAINTAINS O2 SATS BETWEEN 88-92% ON ROOM AIR. WEARS CPAP AT NIGHT AND WHILE SLEEPING.
--- NOTE | 2017-11-10 19:15 | NUR ---
THIS ROUGHING MILL OPERATOR ASSISTED THE PATIENT WITH GETTING READY FOR BED. SET UP SIDE TABLE WITH URINAL, CALL LIGHT AND OTHERS ACCESSIBLE. CPAP IS ON THE PATIENT. CALL LIGHT WITHIN REACH. DENTURES IN DENTURE CUP AND THEY WERE BRUSHED BY THIS R[employer]ING M[employer] OPERATOR. NO OTHER NEEDS AT THIS TIME.
--- NOTE | 2017-11-10 19:23 | NUR ---
PT IS AWAKE IN BED WITH CPAP ON. IN ROOM FOR REPORT. PT DENIES NEEDS AT THIS TIME. CALL LIGHT IS WITHIN REACH.
--- NOTE | 2017-11-10 20:28 | NUR ---
PATIENT CALLED TO USE THE BATHROOM. STANDBY ASSIST. PATIENT IS BACK IN BED. CALL LIGHT WITHIN REACH.
--- NOTE | 2017-11-10 21:10 | NUR ---
ADMINISTERED EVENING MEDICATIONS, PT WANTS TO WAIT FOR THE TRAZADONE TO TAKE AFFECT BEFORE PUTTING CPAP BACK ON. CALL LIGHT IS WITHIN REACH.
--- NOTE | 2017-11-10 23:56 | NUR ---
PT STATES THAT THE IV IN HIS LEFT HAND IS BOTHERING HIM. IT FLUSHES FINE AND PT STATES THERE IS NO INCREASED PAIN WITH FLUSHING. DISCUSSED THAT IT MAY BE IRRITATED D/T THE PLACEMENT AND WRAPPED IT WITH COBAN TO PROTECT IT. PT DENIES FURTHER NEEDS AT THIS TIME.
--- NOTE | 2017-11-11 02:30 | NUR ---
HELPED PT TO THE RESTROOM, HE IS BACK IN BED WITH CALL LIGHT WITHIN REACH.
--- NOTE | 2017-11-11 04:39 | NUR ---
PT IS RESTING WITH EYES CLOSED, RESPIRATIONS EVEN AND NONLABORED. CALL LIGHT IS WITHIN REACH.
--- NOTE | 2017-11-11 04:51 | NUR ---
PT REFUSED TO WEAR CPAP THROUGH THE NIGHT. HE WAS UP ALMOST Q1H TO URINATE, BUT USED CALL LIGHT APPROPRIATELY. HE IS A STANDBY ASSIST AND ON A CARDIAC DIET WITH 1800 ML FLUID RESTRICTION.
--- NOTE | 2017-11-11 06:23 | NUR ---
PT IS AWAKE IN HIS CHAIR AT THIS TIME, DENIES ANY NEEDS. CALL LIGHT IS WITHIN REACH.
--- NOTE | 2017-11-11 07:24 | NUR ---
PATIENT SITTING UP IN BED. WASHED HANDS AND FACE WITH WARM WASH CLOTH. PATIENT REFUSED ORAL CARE AND STATED HE WOULD LIKE TO DO ORAL CARE AFTER BREAKFAST. CALL LIGHT IN REACH. BED ALARM ON. NO OTHER NEEDS AT THIS TIME.
--- NOTE | 2017-11-11 08:14 | NUR ---
PATIENT UP IN RECLINER THIS AM AT REPORT. SEEEMS IN GOOD SPIRITS EVEN THOUGH HE DID SLEEP WELL WITH THE CPAP LAST NIGHT. LUNGS CLEAR BOWEL TONES ACTIVE. PATIENT GOT BACK INTO BED TO EAT BREAKFAST WITHOUT DIFFICULTY. PATIENT HAD NO QUESTIONS OR COMPLAIINTS.
--- NOTE | 2017-11-11 08:50 | NUR ---
PATIENT RESTING IN BED. THIS BELT CONVEYOR DRIER ASSISTED PATIENT UP TO BATHROOM. PATIENT PERFORMED PARTIAL BED BATH IN BATHROOM, THIS BELT CONVEYOR DRIER ASSISTED PATIENT WITH HARD TO REACH PLACES. PATIENT DRESSED IN CLEAN GOWN. PATIENT REFUSED ORAL CARE. THIS BELT CONVEYOR DRIER ASSISTED PATIENT TO SIT UP IN BEDSIDE RECLINER. PATIENT'S FRESH ICE WATER (300ML "BREAKFAST" FLUIDS) AT BEDSIDE TABLE. CALL LIGHT IN REACH. NO OTHER NEEDS AT THIS TIME.
--- NOTE | 2017-11-11 09:54 | NUR ---
PATIENT SITTING UP ON THE COUCH, ATE 100% OF BREAKFAST AND MORNING MEDS HAVE BEEN GIVING.
--- NOTE | 2017-11-11 10:17 | NUR ---
THIS SUPERVISOR SAMPLE ASSISTED PATIENT UP TO BATHROOM BACK TO BED. PATIENT RESTING SITTING UP IN BED. BED ALARM ON. CALL LIGHT IN REACH. NO OTHER NEEDS AT THIS TIME.
--- NOTE | 2017-11-11 10:25 | NUR ---
THIS MOVIE SHOT CAMERAMAN ASSISTED PATIENT TO THE BATHROOM FROM THE BED. 1 PERSON SBA. THIS MOVIE SHOT CAMERAMAN ALSO ASSISTED PATIENT BACK TO BED, SBA. CALL LIGHT WITHIN REACH. NO OTHER NEEDS AT THIS TIME.
[2017-11-11] MEDS ORDERED: TRAZODONE HCL50 MG PO (11:10)
[2017-11-11] MEDS ORDERED: LASIX40 MG PO (11:11)
--- NOTE | 2017-11-11 11:15 | NUR ---
PATIENT BACK TO BED FROM BATHROOM WITH STANDBY ASSIST. URINAL NEXT TO PATIENT FOR USE. IN ROOM. NO OTHER NEEDS AT THIS TIME.
--- NOTE | 2017-11-12 13:35 | NUR ---
Heart Failure Follow Up Call #1: Patient was discharged 11/11/17 from [facility]. Patient is currently taking a nap. S.ODandre Oconnell was able to speak to me. What did he eat for his last meal? "He is eating everything in sight. Frozen waffles for breakfast. Will have fish and a small baked potatoe for dinner with pepper." I reinforced need for low salt diet and getting rid of tempting high salt snack foods. Were you able to sisal picker your medications? yes Trazadone and Lasix What diuretic changes were there? "Lasix was increased to 40 mg twice a day." DC weight [facility] 288lb. What was his weight today? "273.3 lb. but our scales are always much different from yours." Reinforced reporting weight gain early to Dr. Sandoval. States she will be monitoring BP and daily weights with him. She will assist him in continuing fluid restriction. Given tips on how to tolerate fluid restriction with hard candy, rinsing, mouth moisturizer spray, and lorie. Reports he didn't sleep last night with the Trazadone. Did wear oxygen and home POX 93-97% last night. CPAP not worn, "something came loose". She has not called the DME yet, states it is through Dr. Rodriguez in [place]. Encouraged her to call today [place]. I have LM with Mary Alice Thornton [facility] Supervisor Advice RN to find what [employer] company may be involved.
== END 2017-11-11 13:05 | disposition home or self-care (01) | DRG 291 ==
LOC: ED 05:34 → MS 08:23
PROVIDERS: ADMIT Internal Medicine
PROC: 5A09457 Assistance with Respiratory Ventilation, 24-96 Consecutive Hours, Continuous Positive Airway Pressure (ICD-10-PCS; principal; 2017-11-07)
DX: I50.33 Acute on chronic diastolic (congestive) heart failure (principal); J96.22 Acute and chronic respiratory failure with hypercapnia; G93.41 Metabolic encephalopathy; G47.33 Obstructive sleep apnea (adult) (pediatric); I34.0 Nonrheumatic mitral (valve) insufficiency; K72.90 Hepatic failure, unspecified without coma; G47.00 Insomnia, unspecified; K21.9 Gastro-esophageal reflux disease without esophagitis; G25.81 Restless legs syndrome; K70.30 Alcoholic cirrhosis of liver without ascites; D69.6 Thrombocytopenia, unspecified; D64.9 Anemia, unspecified; Z79.899 Other long term (current) drug therapy; Z87.891 Personal history of nicotine dependence
CPT/HCPCS: 36415; 36600; 71045; 80048; 80053; 82140; 82803; 83880; 84484; 85025; 85610; 85730; 93005; 93010; 94762; 97110; 97112; 97116; 97163; G8978; G8979

== ENCOUNTER 2017-12-05 08:52 | Emergency (ER) | payer MEDICARE, OTHER ==
[~2017-12-05] VITALS: Ht 177.8 cm; Wt 130.5 kg
--- OUTSIDE RECORDS SUMMARY | ~2017-12-05 | XMS | Encounter Summary ---
Demographics + + + | Address | [address] | | | [place] [address] | + + + | Home Phone | | + + + | Preferred Language | Unknown | + + + | Marital Status | | + + + | Tenriism Affiliation | Unknown | + + + | Race | Unknown | + + + | Ethnic Group | Unknown | + + + Author + + + | Author | [facility] | + + + | Organization | [facility] | + + + | Address | Unknown | + + + | Phone | Unavailable | + + + Support + + +---------+ + | Name | Relationship | Address | Phone | + + +---------+ + | ,Detailed | ECON | Unknown | | + + +---------+ + | Kourtney Henry | ECON | Unknown | | + + +---------+ + | Holden Moore | SARANYA | Unknown | | + + +---------+ + | Madeline Moore | ECON | Unknown | | + + +---------+ + Care Team Providers + +------+ + | Care Track Repair Person Name | Role | Phone | + +------+ + | Abiel Fontenot MD | PCP | | + +------+ + Encounter Details +--------+ + + + + | Date | Type | Department | Care Team | Description | +--------+ + + + + | 10/12/ | Ancillary | [facility] | Rimma Sandoval MD | SOB (shortness of | | 2017 | Orders | ECHO | [address] | breath); Aortic | | | | | [place], [place] | valve stenosis, | | | | | [id number] | etiology of cardiac | | | | | | valve disease | | | | | | unspecified | +--------+ + + + + Social History + +-------+ +--------+------+ | Tobacco Use | Types | Packs/Day | Years | Date | | | | | Used | | + +-------+ +--------+------+ | Former Smoker | | | | | + +-------+ +--------+------+ + + +---------+ + | Alcohol Use | Drinks/We | oz/Week | Comments | | | ek | | | + + +---------+ + | Yes | | | quit 6 years ago. drank for 10 years - | | | | | vodka - 6 drinks a day | + + +---------+ + + + + | Sex Assigned at | Date Recorded | | | | + + + | Not on file | | + + + as of this encounter Plan of Treatment Not on fileas of this encounter Results ECHO outside interpretation standard (10/12/2017 11:39 AM) + + + | Specimen | Performing Laboratory | + + + | | [address] [address] | + + + + + | Impressions | + + | 1. This was a technically difficult, but interpretable, study with suboptimal views. | | 2. Overall left ventricular systolic function is normal with, an EF between 60 - 65 %. | | 3. Pseudonormal LV diastolic filling pattern, consistent with elevated LA pressure and | | moderate dysfunction (Grade II). 4. The right ventricular systolic function is | | hyperdynamic. 5. The left atrium is moderate to markedly enlarged. 6. The right atrium | | is moderately enlarged. 7. Moderate aortic stenosis with peak/mean pressure gradient | | of 46.43mmHg / 27.54mmHg, the aortic valve area by continuity equation is 1.3cm . | | 8. There is at least mild pulmonary hypertension. | + + + + | Narrative | + + | Patient Name: Gilles Lewis Date of : 1945 | | Performing Physician: JEREMY BEAVER MD | | INDICATIONS | | SOB, CONCLUSIONS 1. This was a technically difficult, | | but interpretable, study with suboptimal views. 2. Overall left ventricular systolic | | function is normal with, an EF between 60 - 65 %. 3. Pseudonormal LV diastolic filling | | pattern, consistent with elevated LA pressure and moderate dysfunction (Grade II). 4. | | The right ventricular systolic function is hyperdynamic. 5. The left atrium is moderate | | to markedly enlarged. 6. The right atrium is moderately enlarged. 7. Moderate aortic | | stenosis with peak/mean pressure gradient of 46.43mmHg / 27.54mmHg, the aortic valve | | area by continuity equation is 1.3cm . 8. There is at least mild pulmonary | | hypertension. FINDINGS -------- ECG rhythm: Sinus rhythm. Study: A 2-dimensional | | transthoracic echocardiogram with m-mode, spectral and color flow Doppler was perfomed. | | Study: This was a technically difficult, but interpretable, study with suboptimal | | views. Left Ventricle: Overall left ventricular systolic function is normal with, an EF | | between 60 - 65 %. Left Ventricle: The left ventricle is mildly dilated. Left | | Ventricle: There is mild concentric left ventricular hypertrophy. Left Ventricle: No | | regional wall motion abnormalities. Left Ventricle: Pseudonormal LV diastolic filling | | pattern, consistent with elevated LA pressure and moderate dysfunction (Grade II). | | Right Ventricle: The right ventricle is normal in size. Right Ventricle: The right | | ventricular systolic function is hyperdynamic. Left Atrium: The left atrium is moderate | | to markedly enlarged. Right Atrium: The right atrium is moderately enlarged. Aortic | | Valve: Aortic valve is trileaflet and is moderately thickened, with Aortic Valve: | | moderate calcification. Leaflet separation is reduced on 2-D and M-mode. | | Aortic Valve: Trace amount of aortic regurgitation. Aortic Valve: Moderate aortic | | stenosis with peak/mean pressure gradient of 46.43mmHg / 27.54mmHg, the aortic valve | | area by continuity equation is 1.3cm . Aortic Valve: The maximum velocity across | | the aortic valve is 3.40m/s Mitral Valve: The mitral valve is normal. Mitral Valve: | | There is trace-mild mitral regurgitation. Mitral Valve: No evidence of MVP Mitral | | Valve: Moderate mitral annular calcification present. Tricuspid Valve: The tricuspid | | valve appears structurally normal. Tricuspid Valve: Mild tricuspid regurgitation | | present. Tricuspid Valve: There is at least mild pulmonary hypertension. Tricuspid | | Valve: The right ventricular systolic pressure (pulmonary artery systolic pressure), as | | measured by Doppler, is 42 mm Hg + the CVP (which could not be accurately estimated, due | | to the inability to image the IVC on subcostal views). Pulmonic Valve: The pulmonic | | valve was not well visualized. The Doppler evaluation reveals on evidence of pulmonic | | stenosis or insufficiency. Pericardium: There is no pericardial effusion. IVC/Hepatic | | Veins: The IVC was not well visualized. Aorta: The aortic root and ascending aorta are | | normal. The aortic arch was not visualized. Mass: No mass visualized Thrombus: | | No clot visualized Thrombus: No vegetation visualized. Septum: No ASD observed. | | Septum: No VSD observed (but assessment was very limited, and these diagnoses cannot be | | definitively excluded on the basis of this study). MEASUREMENTS Ao | | asc: 3.80 cm Ao Diam: 3.28 cm Ao sinus: 3.[address] junct: 3.11 cm | | LA Diam: 4.40 cm LA Major: 7.00 cm EDV(Teich): 175.63 ml IVSd: 1.20 | | cm LVIDd: 5.93 cm LVPWd: 1.19 cm LVOT Area: 3.72 cm2 LVOT Diam: 2.17 | | cm %FS: 36.61 % EF(Teich): 65.55 % ESV(Teich): 60.49 ml LVIDs: 3.76 | | cm SV(Teich): 115.14 ml RA Major: 6.26 cm RV Major: 8.07 cm RVIDd: | | 3.13 cm LVEF MOD A2C: 56.01 % SV MOD A2C: 64.54 ml LVEF MOD A4C: 62.04 % | | SV MOD A4C: 107.22 ml EF Biplane: 63.60 % LVEDV MOD BP: 152.12 ml LVESV | | MOD BP: 55.36 ml LVEDV MOD A2C: 115.22 ml LVLd A2C: 8.91 cm LVEDV MOD | | A4C: 172.83 ml LVLd A4C: 9.55 cm LVESV MOD A2C: 50.67 ml LVLs A2C: | | 7.44 cm LVESV MOD A4C: 65.60 ml LVLs A4C: 7.55 cm LAESV(A-L): 110.46 ml | | LAESV Index (A-L): 48.23 ml/m2 LAAs A2C: 25.72 cm2 LAESV A-L A2C: 88.02 ml | | LALs A2C: 6.38 cm LAAs A4C: 32.27 cm2 LAESV A-L A4C: 122.65 ml LALs | | A4C: 7.21 cm RAAs: 25.44 cm2 RAESV A-L: 87.31 ml RAESV MOD: 83.40 ml | | RALs: 6.39 cm TAPSE: 3.74 cm AV maxP.42 mmHg AV meanP.53 | | mmHg AV Vmax: 3.39 m/s AV Vmean: 2.47 m/s AV VTI: 91.88 cm DEONNA Vmax: | | 1.30 cm2 DEONNA (VTI): 1.29 cm2 AVAI Vmax: 0.00 cm2/m2 AVAI (VTI): 0.00 | | cm2/m2 LVOT maxP.68 mmHg LVOT meanP.19 mmHg LVSI Dopp: 51.78 | | ml/m2 LVSV Dopp: 118.58 ml LVOT Vmax: 1.19 m/s LVOT Vmean: 0.84 m/s LVOT | | VTI: 31.82 cm MV A Casa: 1.28 m/s MV DecT: 199.72 ms MV E Casa: 1.58 | | m/s MV E/A Ratio: 1.23 MV PHT: 57.92 ms MVA By PHT: 3.79 cm2 Septal | | e': 0.04 m/s Septal E/e': 36.70 Lateral e': 0.11 m/s Lateral E/e': | | 13.79 RAP: 5 mmHg RVSP: 47.05 mmHg TR maxP.05 mmHg TR Vmax: | | 3.24 m/s Ben Day Artist: Authenticated by: JEREMY BEAVER MD Report Date/Time: | | 10-15-2017 12:15:23 | + + + + | Procedure Note | + + | David Subramanian Results In - 10/15/2017 12:20 PM PST Patient Name: Shahana Lewis of | | : 5Accession: [id number] Physician: JEREMY BEAVER MD | | INDICATIONS SOB | | , ASCONCLUSIONS 1. This was a technically difficult, but interpretable, study | | with suboptimal views.2. Overall left ventricular systolic function is normal with, an | | EF between 60 - 65 %.3. Pseudonormal LV diastolic filling pattern, consistent with | | elevated LA pressure and moderate dysfunction (Grade II).4. The right ventricular | | systolic function is hyperdynamic.5. The left atrium is moderate to markedly enlarged.6. | | The right atrium is moderately enlarged.7. Moderate aortic stenosis with peak/mean | | pressure gradient of 46.43mmHg / 27.54mmHg, the aortic valve area by continuity equation | | is 1.3cm .8. There is at least mild pulmonary hypertension.FINDINGS--------ECG | | rhythm: Sinus rhythm.Study: A 2-dimensional transthoracic echocardiogram with m-mode, | | spectral and color flow Doppler was perfomed. Study: This was a technically difficult, | | but interpretable, study with suboptimal views.Left Ventricle: Overall left ventricular | | systolic function is normal with, an EF between 60 - 65 %. Left Ventricle: The left | | ventricle is mildly dilated. Left Ventricle: There is mild concentric left ventricular | | hypertrophy. Left Ventricle: No regional wall motion abnormalities. Left Ventricle: | | Pseudonormal LV diastolic filling pattern, consistent with elevated LA pressure and | | moderate dysfunction (Grade II).Right Ventricle: The right ventricle is normal in size. | | Right Ventricle: The right ventricular systolic function is hyperdynamic.Left Atrium: | | The left atrium is moderate to markedly enlarged.Right Atrium: The right atrium is | | moderately enlarged.Aortic Valve: Aortic valve is trileaflet and is moderately | | thickened, with Aortic Valve: moderate calcification. Leaflet separation is reduced on | | 2-D and M-mode. Aortic Valve: Trace amount of aortic regurgitation. Aortic Valve: | | Moderate aortic stenosis with peak/mean pressure gradient of 46.43mmHg / 27.54mmHg, the | | aortic valve area by continuity equation is 1.3cm . Aortic Valve: The maximum | | velocity across the aortic valve is 3.40m/sMitral Valve: The mitral valve is normal. | | Mitral Valve: There is trace-mild mitral regurgitation. Mitral Valve: No evidence of MVP | | Mitral Valve: Moderate mitral annular calcification present.Tricuspid Valve: The | | tricuspid valve appears structurally normal. Tricuspid Valve: Mild tricuspid | | regurgitation present. Tricuspid Valve: There is at least mild pulmonary hypertension. | | Tricuspid Valve: The right ventricular systolic pressure (pulmonary artery systolic | | pressure), as measured by Doppler, is 42 mm Hg + the CVP (which could not be accurately | | estimated, due to the inability to image the IVC on subcostal views).Pulmonic Valve: The | | pulmonic valve was not well visualized. The Doppler evaluation reveals on evidence of | | pulmonic stenosis or insufficiency.Pericardium: There is no pericardial | | effusion.IVC/Hepatic Veins: The IVC was not well visualized.Aorta: The aortic root and | | ascending aorta are normal. The aortic arch was not visualized.Mass: No mass | | visualizedThrombus: No clot visualized Thrombus: No vegetation visualized.Septum: No ASD | | observed. Septum: No VSD observed (but assessment was very limited, and these diagnoses | | cannot be definitively excluded on the basis of this study).MEASUREMENTS Ao | | asc: 3.80 cmAo Diam: 3.28 cmAo sinus: 3.[address] junct: 3.11 cmLA Diam: | | 4.40 cmLA Major: 7.00 cmEDV(Teich): 175.63 mlIVSd: 1.20 cmLVIDd: 5.93 cmLVPWd: | | 1.19 cmLVOT Area: 3.72 [id number] Diam: 2.17 cm%FS: 36.61 %EF(Teich): 65.55 | | %ESV(Teich): 60.49 mlLVIDs: 3.76 cmSV(Teich): 115.14 mlRA Major: 6.26 cmRV | | Major: 8.07 cmRVIDd: 3.13 cmLVEF MOD A2C: 56.01 %SV MOD A2C: 64.54 mlLVEF MOD | | A4C: 62.04 %SV MOD A4C: 107.22 mlEF Biplane: 63.60 %LVEDV MOD BP: 152.12 mlLVESV | | MOD BP: 55.36 mlLVEDV MOD A2C: 115.22 mlLVLd A2C: 8.91 cmLVEDV MOD A4C: 172.83 | | mlLVLd A4C: 9.55 cmLVESV MOD A2C: 50.67 mlLVLs A2C: 7.44 cmLVESV MOD A4C: 65.60 | | mlLVLs A4C: 7.55 cmLAESV(A-L): 110.46 mlLAESV Index (A-L): 48.23 ml/m2LAAs A2C: | | 25.72 [id number] A-L A2C: 88.02 mlLALs A2C: 6.38 cmLAAs A4C: 32.27 [id number] A-L A4C: | | 122.65 mlLALs A4C: 7.21 cmRAAs: 25.44 [id number] A-L: 87.31 mlRAESV MOD: 83.40 | | mlRALs: 6.39 cmTAPSE: 3.74 cmAV maxP.42 mmHgAV meanP.53 mmHgAV Vmax: | | 3.39 m/Verna Vmean: 2.47 m/Verna VTI: 91.88 cmAVA Vmax: 1.30 cm2AVA (VTI): 1.29 | | [id number] Vmax: 0.00 cm2/m2AVAI (VTI): 0.00 cm2/m2LVOT maxP.68 mmHgLVOT meanPG: | | 3.19 mmHgLVSI Dopp: 51.78 ml/m2LVSV Dopp: 118.58 mlLVOT Vmax: 1.19 m/sLVOT | | Vmean: 0.84 m/sLVOT VTI: 31.82 cmMV A Casa: 1.28 m/sMV DecT: 199.72 msMV E Casa: | | 1.58 m/sMV E/A Ratio: 1.23 MV PHT: 57.92 msMVA By PHT: 3.79 [id number] e': 0.04 | | m/sSeptal E/e': 36.70 Lateral e': 0.11 m/sLateral E/e': 13.79 RAP: 5 mmHgRVSP: | | 47.05 mmHgTR maxP.05 mmHgTR Vmax: 3.24 m/sSonographer: Authenticated by: | | Eula RIVASort Date/Time: 10-15-2017 12:15:23IMPRESSION:1. This was a technically | | difficult, but interpretable, study with suboptimal views.2. Overall left ventricular | | systolic function is normal with, an EF between 60 - 65 %.3. Pseudonormal LV diastolic | | filling pattern, consistent with elevated LA pressure and moderate dysfunction (Grade | | II).4. The right ventricular systolic function is hyperdynamic.5. The left atrium is | | moderate to markedly enlarged.6. The right atrium is moderately enlarged.7. Moderate | | aortic stenosis with peak/mean pressure gradient of 46.43mmHg / 27.54mmHg, the aortic | | valve area by continuity equation is 1.3cm .8. There is at least mild pulmonary | | hypertension. | |IVSd: 1.20 cm | |LVIDd: 5.93 cm | |LVPWd: 1.19 cm | |LVOT Area: 3.72 cm2 | |LVOT Diam: 2.17 cm | |%FS: 36.61 % | |EF(Teich): 65.55 % | |ESV(Teich): 60.49 ml | |LVIDs: 3.76 cm | |SV(Teich): 115.14 ml | |RA Major: 6.26 cm | |RV Major: 8.07 cm | |RVIDd: 3.13 cm | |LVEF MOD A2C: 56.01 % | |SV MOD A2C: 64.54 ml | |LVEF MOD A4C: 62.04 % | |SV MOD A4C: 107.22 ml | |EF Biplane: 63.60 % | |LVEDV MOD BP: 152.12 ml | |LVESV MOD BP: 55.36 ml | |LVEDV MOD A2C: 115.22 ml | |LVLd A2C: 8.91 cm | |LVEDV MOD A4C: 172.83 ml | |LVLd A4C: 9.55 cm | |LVESV MOD A2C: 50.67 ml | |LVLs A2C: 7.44 cm | |LVESV MOD A4C: 65.60 ml | |LVLs A4C: 7.55 cm | |LAESV(A-L): 110.46 ml | |LAESV Index (A-L): 48.23 ml/m2 | |LAAs A2C: 25.72 cm2 | |LAESV A-L A2C: 88.02 ml | |LALs A2C: 6.38 cm | |LAAs A4C: 32.27 cm2 | |LAESV A-L A4C: 122.65 ml | |LALs A4C: 7.21 cm | |RAAs: 25.44 cm2 | |RAESV A-L: 87.31 ml | |RAESV MOD: 83.40 ml | |RALs: 6.39 cm | |TAPSE: 3.74 cm | |AV maxP.42 mmHg | |AV meanP.53 mmHg | |AV Vmax: 3.39 m/s | |AV Vmean: 2.47 m/s | |AV VTI: 91.88 cm | |DEONNA Vmax: 1.30 cm2 | |DEONNA (VTI): 1.29 cm2 | |AVAI Vmax: 0.00 cm2/m2 | |AVAI (VTI): 0.00 cm2/m2 | |LVOT maxP.68 mmHg | |LVOT meanP.19 mmHg | |LVSI Dopp: 51.78 ml/m2 | |LVSV Dopp: 118.58 ml | |LVOT Vmax: 1.19 m/s | |LVOT Vmean: 0.84 m/s | |LVOT VTI: 31.82 cm | |MV A Casa: 1.28 m/s | |MV DecT: 199.72 ms | |MV E Casa: 1.58 m/s | |MV E/A Ratio: 1.23 | |MV PHT: 57.92 ms | |MVA By PHT: 3.79 cm2 | |Septal e': 0.04 m/s | |Septal E/e': 36.70 | |Lateral e': 0.11 m/s | |Lateral E/e': 13.79 | |RAP: 5 mmHg | |RVSP: 47.05 mmHg | |TR maxP.05 mmHg | |TR Vmax: 3.24 m/s | | | |Ben Day Artist: | |Authenticated by: JEREMY BEAVER MD | |Report Date/Time: 10-15-2017 12:15:23 | | | |IMPRESSION: | |1. This was a technically difficult, but interpretable, study with suboptimal views. | |2. Overall left ventricular systolic function is normal with, an EF between 60 - 65 %. | |3. Pseudonormal LV diastolic filling pattern, consistent with elevated LA pressure and mode rate dysfunction (Grade II). | |4. The right ventricular systolic function is hyperdynamic. | |5. The left atrium is moderate to markedly enlarged. | |6. The right atrium is moderately enlarged. | |7. Moderate aortic stenosis with peak/mean pressure gradient of 46.43mmHg / 27.54mmHg, the aortic valve area by continuity equation is 1.3cm . | |8. There is at least mild pulmonary hypertension. | + + in this encounter Visit Diagnoses + + | Diagnosis | + + | SOB (shortness of breath) | + + | Shortness of breath | + + | Aortic valve stenosis, etiology of cardiac valve disease unspecified | + +"
--- OUTSIDE RECORDS SUMMARY | ~2017-12-05 | XMS | Encounter Summary ---
Demographics + + + | Address | [address] | | | [place] [address] | + + + | Home Phone | | + + + | Preferred Language | Unknown | + + + | Marital Status | Unknown | + + + | Jehovah'S Witness Affiliation | Unknown | + + + | Race | Unknown | + + + | Ethnic Group | Unknown | + + + Author + + + | Author | [facility] | | | and [place] | + + + | Organization | [facility] | | | and [place] | + + + | Address | Unknown | + + + | Phone | Unavailable | + + + Support + + + + + | Name | Relationship | Address | Phone | + + + + + | Kourtney Lewis | ECON | [address] | | | | | [place] | | | | | [address] | | + + + + + Care Team Providers + +------+ + | Care Sap Sd Analyst Name | Role | Phone | + +------+ + | Abiel Fontenot MD | PCP | | + +------+ + Encounter Details +--------+ + + + + | Date | Type | Department | Care Team | Description | +--------+ + + + + | 11/09/ | Episode | [facility] | Giovanna Muller, | | | 2017 | Changes | GASTROENTEROLOGY | RN | | | | | [address] | | | | | | [address] [place] | | | | | | [address] | | | | | | [phone] | | | +--------+ + + + + Social [...] + + +---------+ + | No | 0 | 0.0 | | | | Standard | | | | | drinks or | | | | | | | | | | equivalen | | | | | t | | | + + +---------+ + + + + | Sex Assigned at | Date Recorded | | | | + + + | Not on file | | + + + as of this encounter Plan of Treatment Not on fileas of this encounter Visit Diagnoses Not on filein this encounter"
--- OUTSIDE RECORDS SUMMARY | ~2017-12-05 | XMS | Clinical Summary ---
Demographics + + + | Address | [address] | | | [place] [address] | + + + | Home Phone | | + + + | Preferred Language | Unknown | + + + | Marital Status | | + + + | Rastafarian Affiliation | Unknown | + + + | Race | Unknown | + + + | Ethnic Group | Unknown | + + + Author + + + | Author | [facility] [employer] | + + + | Organization | [facility] [employer] | + + + | Address [...] Team Providers + +------+ + | Care Sugar Sampler Name | Role | Phone | + +------+ + | Abiel Fontenot MD | PP | | + +------+ + Allergies + + + + + + | Active Allergy | Reactions | Severity | Noted | Comments | | | | | Date | | + + + + + + | Morphine | Other (See Comments) | Medium | 06/20/20 | Patient stated | | | | | 15 | makes him feel | | | | | | deathly ill. | + + + + + + Current Medications + + +---------+---------+------+------+-------+ | Prescription | Sig. | Disp. | Refills | Star | End | Statu | | | | | | t | Date | s | | | | | | Date | | | + + +---------+---------+------+------+-------+ | lactulose | Take 30 g by mouth 4 | | | 04/2 | | Activ | | (CHRONULAC) 10 | (four) times daily. | | | 10/06 | | e | | GM/15ML solution | | | | 15 | | | + + +---------+---------+------+------+-------+ | omeprazole | Take 20 mg by mouth | | | 02/2 | | Activ | | (PRILOSEC) 20 MG | 2 (two) times daily. | | | /20 | | e | | capsule | | | | 15 | | | + + +---------+---------+------+------+-------+ | furosemide (LASIX) | Take 40 mg by mouth | | | 04/0 | | Activ | | 40 MG tablet | 2 (two) times daily. | | | 6/20 | | e | | | | | | 15 | | | + + +---------+---------+------+------+-------+ | HYDROmorphone | Take 4 mg by mouth 2 | | | 03/1 | | Activ | | (DILAUDID) 4 MG | (two) times daily. | | | 6/20 | | e | | tablet | | | | 15 | | | + + +---------+---------+------+------+-------+ | ropinirole | Take 2 mg by mouth | | | 04/ | | Activ | | (REQUIP) 2 MG tablet | nightly. | | | 09/05 | | e | | | | | | 15 | | | + + +---------+---------+------+------+-------+ | Potassium | Take 595 mg by mouth | | | | | Activ | | Gluconate 595 MG | as needed. | | | | | e | | CAPS | | | | | | | + + +---------+---------+------+------+-------+ | Buprenorphine 10 | Place 10 mcg onto | | | | | Activ | | MCG/HR PTWK | the skin once a | | | | | e | | | week. | | | | | | + + +---------+---------+------+------+-------+ | rifaximin | Take 200 mg by mouth | | | | | Activ | | (XIFAXAN) 200 MG | 2 (two) times | | | | | e | | tablet | daily. | | | | | | + + +---------+---------+------+------+-------+ | gabapentin | Take 3 capsules 2 | 90 | 3 | 11/ | | Activ | | (NEURONTIN) 100 MG | hours before | capsule | | 0/20 | | e | | capsuleIndications: | bedtime. 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 | + + + | Cirrhosis | 12/07/2014 | + + + | Milenaixis | 12/07/2014 | + + + Encounters +--------+ + + + + | Date | Type | Specialty | Care Team | Description | +--------+ + + + + | 10/12/ | Ancillary | | Rimma Sandoval MD | SOB (shortness of | | 2017 | Procedure | | | breath); Aortic | | | | | | valve stenosis, | | | | | | etiology of cardiac | | | | | | valve disease | | | | | | unspecified | +--------+ + + + + | 10/12/ | Ancillary | | Rimma Sandoval MD | SOB (shortness of | | 2017 | Orders | | | breath); Aortic | | | | | | valve stenosis, | | | | | | etiology of cardiac | | | | | | valve disease | | | | | | unspecified | +--------+ + + + + from Last 3 Months Social History + +-------+ +--------+------+ | Tobacco [...] + + + | Blood Pressure | 133/77 | 06/26/2015 3:03 PM PST | + + + + | Pulse | 77 | 06/26/2015 3:03 PM PST | + + + + | Temperature | - | - | + + + + | Respiratory Rate | - | - | + + + + | Oxygen Saturation | - | - | + + + + | Inhaled Oxygen | - | - | | Concentration | | | + + + + | Weight | 113.4 kg (250 lb) | 06/26/2015 3:03 PM PST | + + + + | Height | 177.8 cm (5' 10") | 06/26/2015 3:03 PM PST | + + + + | Body Mass Index | 35.87 | 06/26/2015 3:03 PM PST | + + + + Plan of Treatment + + + + + | Health Maintenance | Due Date | Last Done | Comments | + + + + + | Colon Cancer | | | | | Screening | 5 | | | | (Colonoscopy) | | | | + + + + + | Vaccine: | | 04/11/2011 | | | Pneumococcal 65+ | 2 | | | | Low/Medium Risk (2 | | | | | of 2 - PCV13) | | | | + + + + + | Vaccine: Influenza | | | | | (Season Ended) | 8 | | | + + + + + | Vaccine: | | 04/25/2011 | | | Dtap/Tdap/Td (2 - | 1 | | | | Td) | | | | + + + + + Procedures + +--------+ + + + | Procedure Name | Priori | Date/Time | Associated Diagnosis | Comments | | | ty | | | | + +--------+ + + + | ECHO OUTSIDE | Routin | 10/12/2017 | SOB (shortness of | Results for this | | INTERPRETATION | e | 11:39 AM | breath) Aortic | procedure are in the | | STANDARD | | PST | valve stenosis, | results section. | | | | | etiology of cardiac | | | | | | valve disease | | | | | | unspecified | | + +--------+ + + + from Last 3 Months Results ECHO outside interpretation standard (10/12/2017 11:39 AM) + + + | Specimen | Performing Laboratory | + + + | | [address] [address] | + + + + + | [...] Narrative | + + | Patient Name: Isma Lewis Date of : 1945 | | [...] mmHg TR Vmax: | | 3.24 m/s Graduation Coach: Authenticated by: JEREMY BEAVER MD Report Date/Time: | | 10-15-2017 12:15:23 | + + + + | Procedure Note | + + | David Subramanian Results In - 10/15/2017 12:20 PM PST Patient Name: Shahana Lewis of | | : 5Accession: [id number] Physician: JEREMY BEAVER MD | | INDICATIONS [...] cmLVPWd: | | 1.19 cmLVOT Area: 3.72 [id number] Diam: 2.17 cm%FS: 36.61 %EF(Teich): 65.55 | [...] (A-L): 48.23 ml/m2LAAs A2C: | | 25.72 [id number] A-L A2C: 88.02 mlLALs A2C: 6.38 cmLAAs A4C: 32.27 [id number] A-L A4C: | | 122.65 mlLALs A4C: 7.21 cmRAAs: 25.44 [id number] A-L: 87.31 mlRAESV MOD: 83.40 | | mlRALs: 6.39 cmTAPSE: 3.74 cmAV maxP.42 mmHgAV meanP.53 mmHgAV Vmax: | | 3.39 m/Verna Vmean: 2.47 m/Verna VTI: 91.88 cmAVA Vmax: 1.30 cm2AVA (VTI): 1.29 | | [id number] Vmax: 0.00 cm2/m2AVAI (VTI): 0.00 cm2/m2LVOT maxP.68 mmHgLVOT meanPG: | | 3.19 mmHgLVSI Dopp: 51.78 ml/m2LVSV Dopp: 118.58 mlLVOT Vmax: 1.19 m/sLVOT | | Vmean: 0.84 m/sLVOT VTI: 31.82 cmMV A Casa: 1.28 m/sMV DecT: 199.72 msMV E Casa: | | 1.58 m/sMV E/A Ratio: 1.23 MV PHT: 57.92 msMVA By PHT: 3.79 [id number] e': 0.04 | | m/sSeptal E/e': 36.70 Lateral e': 0.11 m/sLateral E/e': 13.79 RAP: 5 mmHgRVSP: | | 47.05 mmHgTR maxP.05 mmHgTR Vmax: 3.24 m/sSonographer: Authenticated by: | | [facility] Date/Time: 10-15-2017 12:15:23IMPRESSION:1. This was a technically [...] |TR Vmax: 3.24 m/s | | | |Graduation Coach: | |Authenticated by: JEREMY BEAVER MD | [...] least mild pulmonary hypertension. | + + from Last 3 Months Insurance + +--------+ +--------+-------+---------+ | Payer | Benefi | Subscriber | Type | Phone | Address | | | t Plan | ID | | | | | | / | | | | | | | Group | | | | | + +--------+ +--------+-------+---------+ | [employer] - [employer] | [employer]-FAM | [phone] | Med[employer] | | | | FAMILY | [place]AR[place] | | re | | | | | CARE | | | | | + +--------+ +--------+-------+---------+ + +--------+ +--------+ + + | Guarantor Name | Accoun | Relation to | Date | Phone | Billing Address | | | t Type | Patient | of | | | | | | | | | | + +--------+ +--------+ + + | ISMA LEWIS | Person | Self [birth year] Home: | [address] | | | al/Fam | | 1945 | [phone] [place] | | | [place] | | | [phone] | [address] | + +--------+ +--------+ + +
--- OUTSIDE RECORDS SUMMARY | ~2017-12-05 | XMS | Encounter Summary ---
Demographics + + + | Address | [address] | | | [place] [address] | + + + | Home Phone | | + + + | Preferred Language | Unknown | + + + | Marital Status | Unknown | + + + | Mormonism Affiliation | Unknown | + + + | Race | Unknown | + + + | Ethnic Group | Unknown | + + + Author + + + | Author | [facility] | | | and [place] | + + + | Organization | [facility] | | | and [place] | + + + | Address | Unknown | + + + | Phone | Unavailable | + + + Support + + + + + | Name | Relationship | Address | Phone | + + + + + | Kourtney Lewis | ECON | [address] | | | | | [place] | | | | | [address] | | + + + + + Care Team Providers + +------+ + | Care Home Lending Officer Name | Role | Phone | + +------+ + | Abiel Fontenot MD | PCP | | + +------+ + Reason for Visit + + + | Reason | Comments | + + + | Medication Question | | + + + Encounter Details +--------+ + + + + | Date | Type | Department | Care Team | Description | +--------+ + + + + | 11/09/ | Telephone | [facility] | [facility], | Medication Question | | 2018 | | GASTROENTEROLOGY | BAILEY [address] | | | | | [address] [place] | [place], [place] [address] | | | | | [address] [place], [place] | [place], [place] | | | | | [address] | [address] | | | | | [phone] | | | +--------+ + + + [...]
--- OUTSIDE RECORDS SUMMARY | ~2017-12-05 | XMS | Encounter Summary ---
Demographics + + + | Address | [address] | | | [place] [address] | + + + | Home Phone | | + + + | Preferred Language | Unknown | + + + | Marital Status | Unknown | + + + | Taoist Affiliation | Unknown | + + + | Race | Unknown | + + + | Ethnic Group | Unknown | + + + Author + + + | Author | [facility] | | | and [place] | + + + | Organization | [facility] | | | and [place] | + + + | Address | Unknown | + + + | Phone | Unavailable | + + + Support + + + + + | Name | Relationship | Address | Phone | + + + + + | Kourtney Lewis | ECON | [address] | | | | | [place] | | | | | [address] | | + + + + + Care Team Providers + +------+ + | Care Partridge Farmer Name | Role | Phone | + +------+ + | Abiel Fontenot MD | PCP | | + +------+ + Reason for Visit + + + | Reason | Comments | + + + | Follow-up | | + + + Encounter Details +--------+---------+ + + + | Date | Type | Department | Care Team | Description | +--------+---------+ + + + | 10/26/ | Office | [facility] [place] | [facility], | Alcoholic cirrhosis | | 2018 | Visit | GASTROENTEROLOGY | BAILEY Rodriguez [address] | of liver without | | | | [address] [place] | [place], [place] [address] | ascites (HCC) | | | | [address] [place], [place] | [place], [place] | (Primary Dx); | | | | [address] | [address] | Hepatic | | | | [phone] | | encephalopathy | | | | | | (HCC); Esophageal | | | | | | and gastric varices | | | | | | (HCC); S/P TIPS | | | | | | (transjugular | | | | | | intrahepatic | | | | | | portosystemic | | | | | | shunt); Obesity, | | | | | | morbid, BMI | | | | | | 40.0-49.9 (HCC); | | | | | | Advanced age | +--------+---------+ + + + Social History + +-------+ [...] + + + as of this encounter Last Filed Vital Signs + + + + | Vital Sign | Reading | Time Taken | + + + + | Blood Pressure | 160/74 | 10/26/20171015 PDT | + + + + | Pulse | 73 | 10/26/20171015 PDT | + + + + | Temperature | 36.2 C (97.2 F) | 10/26/20171015 PDT | + + + + | Respiratory Rate | 18 | 10/26/20171015 PDT | + + + + | Oxygen Saturation | 96% | 10/26/20171015 PDT | + + + + | Inhaled Oxygen | - | - | | Concentration | | | + + + + | Weight | 129.5 kg (285 lb 7.9 | 10/26/2017 1016 PDT | | | oz) | | + + + + | Height | - | - | + + + + | Body Mass Index | 40.96 | 10/26/2017 1016 PDT | + + + + in this encounter Progress Notes Flavia Haywood RN - 10/26/2017 1030 PDTFollowing office visit with Majo scheduled pt for propofol EGD/Colon with Evelyn; scheduled on 11/27/17 at 0830; reviewed medication, surg/ med hx and allergies; reviewed bowel prep; pt has BMI over 40 but no problems with constipat ion rather using lactulose regularly; rx to [facility]; instructions given to pt; com pleted case request order. Jennifer Lewis ARNP - 10/26/2017 1030 PDTFormatting of this note may be different from the original. PATIENT NAME: Gilles Lewis : 1945: AGE: 72 y.o. REFERRED BY: No additional provider found PRIMARY CARE: Abiel Fontenot MD Subjective: CHIEF COMPLAINT: Gilles Lewis is a 72 y.o. male is here for a follow up. He is being seen today for fo llow up cirrhosis of liver. HISTORY OF PRESENT ILLNESS: Patient has a history of cirrhosis of the liver initially diagnosed approximately 2009. He was last seen in our office in 2014. Most recent EGD on file was done at that time. Has n o record that additional laboratory tests or imaging has been done since 02/2015. It does ap pear that we have tried to contact the patient to continue with routine screening for hepato cellular carcinoma every 6 months. Patient is here today following most recent hospitalization approximately 3 weeks ago. Saige dyson notes that he was in the hospital in [facility] related to his liver. He states that he wa s stabilized and allowed to come home. He does not think that an upper endoscopy was done a t that time. He is fairly confident that imaging was done. We do not have records from cathy s hospitalization. He also reports that he had abdominal ultrasound done about 6 months ago in [place]. Cathy s record is also not available at this time. Records from office visit with primary provider indicate blood in the stool. He does not re member when this was and states that there is none now. He last drank alcohol about 2009. He reports that his is gaining weight and is planning on going to ED as he was directed. Jessica brooks states that when he was last seen for his heart failure, he was advised that if he continu es to gain weight, he is to go to the ER due to his potential worsening heart failure Denies ascites, jaundice, hematemesis, peripheral edema, sleep changes, or confusion. MEDICAL, SURGICAL, AND PERSONAL HISTORY Allergies Allergen Reactions Morphine Nausea And Vomiting Past Medical History: Diagnosis Date Anemia, iron deficiency Chronic bronchitis (HCC) Chronic pain syndrome Cirrhosis, alcoholic (HCC) Encephalopathy Familial tremor Full dentures GERD (gastroesophageal reflux disease) Hypertension Obesity Osteoarthritis Peripheral neuropathy (HCC) Secondary insomnia Past Surgical History: Procedure Laterality Date TIPS PROCEDURE 06/2012 TONSILLECTOMY 1939 UPPER GASTROINTESTINAL ENDOSCOPY 06/2012 Bleeding esophageal varices UPPER GASTROINTESTINAL ENDOSCOPY N/A 03/13/2015 Procedure: EGD; Surgeon: Maynor Rivas MD; Location: [facility] Family History Problem Relation Age of Onset Heart failure Father Diabetes Father Thyroid disease Mother Social History Social History Marital status: Significant Other Spouse name: N/A Number of children: N/A Years of education: N/A Occupational History Not on file. Social History Main Topics Smoking status: Former Smoker Smokeless tobacco: Never Used Alcohol use No Drug use: No Sexual activity: Not on file Other Topics Concern Not on file Social History Narrative No narrative on file Review Of Systems Constitutional: Denies any fevers, chills, or unintentional weight loss. Respiratory: Complains of increasing shortness of breath with increasing weight gain. Gastrointestinal:Negative except as stated above. Cardiovascular:Denies chest pain, palpitations, or swelling to legs Objective: PHYSICAL EXAM: General: well developed, well nourished, in no acute distress. Head: normocephalic and atraumatic Eyes: Sclera clear Mouth: MMM Lungs: Clear to auscultate bilaterally and throughout Heart: regular rate and rhythm Abdomen: Soft, non tender, non distended, bowel tones positive times 4 quadrants, negative Suzanna y's sign, negative rebound tenderness, no guarding, no hepatosplenomegaly palpated. Rectal: Will be done prior to procedure Msk: symmetrical with no deformity, with normal posture and gait, normal strength. Extremities: no clubbing, cyanosis, edema, or deformity noted Neurologic: no focal deficits, cranial nerves II-XII grossly intact, mild asterixis. Skin: intact without lesions or rashes. Psych: alert and cooperative; normal mood and affect; normal attention span and concentration. No visits with results within 1 Month(s) from this visit. Latest known visit with results is: Abstract on 03/07/2015 Component Date Value Ref Range Status WBC, External 12/13/2014 8.8 Final HGB, External 12/13/2014 10* 13.5 - 18 Final HCT, External 12/13/2014 32.1* 41 - 50 Final PLT, External 12/13/2014 111* 140 - 440 Final Neutrophils %, External 12/13/2014 50.8 39 - 60 Final Lymphocytes %, External 12/13/2014 31.2 24 - 44 Final Monocytes %, External 12/13/2014 12.8* 0 - 12 Final Eosinophils %, External 12/13/2014 4.8 0 - 6 Final RBC, External 12/13/2014 1.04* 4.3 - 5.7 Final MCV, External 12/13/2014 80* 81 - 99 Final RDW, External 12/13/2014 18.8* 10.5 - 15 Final MCH 12/13/2014 25.0* 27.0 - 33.0 pg Final [facility] 12/13/2014 31.0 Final BASOPHILS % 12/13/2014 0.4 % Final Ammonia 12/13/2014 88* 11 - 35 umol/L Final Creatinine, External 12/13/2014 0.82 0.7 - 1.25 Final eGFR, External 12/13/2014 >60 60 - 99,999 Final Sodium, External 12/13/2014 131* 132 - 143 Final Potassium, External 12/13/2014 3.6 3.6 - 5.1 Final Chloride, External 12/13/2014 100 95 - 112 Final Carbon Dioxide, External 12/13/2014 30 19 - 31 Final Calcium, External 12/13/2014 8.2* 8.4 - 10.2 Final Magnesium, External 12/13/2014 1.6* 1.7 - 2.5 Final Phosphorus, External 12/13/2014 3.2 2.5 - 5 Final Glucose, External 12/13/2014 107* 70 - 100 Final BUN, External 12/13/2014 0.82 0.7 - 1.25 Final ANION GAP 12/13/2014 5* 7 - 21 mmol/L Final BUN/Creatinine Ratio 12/13/2014 7.3 Final MCH 12/11/2014 24.0* 27.0 - 33.0 pg [facility] 12/11/2014 31.0 % Final BASOPHILS % 12/11/2014 0.2 % Final ANION GAP 12/11/2014 10 mmol/L Final BUN/Creatinine Ratio 12/11/2014 12.8 Final Globulin 12/11/2014 2.9 Final Albumin/Globulin Ratio 12/11/2014 1.1 Final Ammonia 12/11/2014 50* 11 - 35 Final Creatinine, External 12/11/2014 0.76 0.7 - 1.25 Final eGFR, External 12/11/2014 >60 60 - 99,999 Final WBC, External 12/11/2014 9.2 4.5 - 11 Final HGB, External 12/11/2014 10.9* 13.5 - 18 Final HCT, External 12/11/2014 35.2* 41 - 50 Final PLT, External 12/11/2014 101* 140 - 440 Final Neutrophils %, External 12/11/2014 59.4 39 - 80 Final Lymphocytes %, External 12/11/2014 22.2* 24 - 44 Final Monocytes %, External 12/11/2014 16.1* 0 - 12 Final Eosinophils %, External 12/11/2014 2.1 0 - 6 Final RBC, External 12/11/2014 4.48 4.3 - 5.7 Final MCV, External 12/11/2014 79* 81 - 99 Final RDW, External 12/11/2014 16.2* 10.5 - 15 Final Sodium, External 12/11/2014 132 132 - 142 Final Potassium, External 12/11/2014 3.3* 3.6 - 5.1 Final Chloride, External 12/11/2014 99 95 - 112 Final Carbon Dioxide, External 12/11/2014 26 19 - 31 Final Calcium, External 12/11/2014 9.3 8.4 - 10.2 Final Magnesium, External 12/11/2014 2.1 1.7 - 2.5 Final Phosphorus, External 12/11/2014 2.3* 2.5 - 5 Final Protein, Total, External 12/11/2014 6.1 6 - 8 Final Albumin, External 12/11/2014 3.2* 3.5 - 5 Final Bilirubin, Total, External 12/11/2014 2.2* 0 - 1.2 Final ALP, External 12/11/2014 152* 30 - 128 Final AST, External 12/11/2014 62* 13 - 39 Final ALT, External 12/11/2014 27 7 - 52 Final Glucose, External 12/11/2014 109* 70 - 100 Final BUN, External 12/11/2014 10 6 - 23 Final MCH 12/10/2014 25.0* 27.0 - 33.0 pg Final MCHC 12/10/2014 32.0 % Final BASOPHILS % 12/10/2014 0.0 % Final Lactic Acid, Plasma 12/10/2014 1.8 Final ANION GAP 12/10/2014 11 mmol/L Final BUN/Creatinine Ratio 12/10/2014 16.7 Final Globulin 12/10/2014 3.1 Final Albumin/Globulin Ratio 12/10/2014 1.0* 1.1 - 2.4 Final Ammonia 12/10/2014 170* 11 - 35 Final Myoglobin 12/10/2014 105.1* 28 - 72 ng/mL Final CK Index 12/10/2014 1.3 Final CKMB, Total, External 12/10/2014 Negative Final Creatinine, External 12/10/2014 0.90 0.7 - 1.25 Final eGFR, External 12/10/2014 >60 60 - 999,999 Final WBC, External 12/10/2014 8.4 4.5 - 11 Final HGB, External 12/10/2014 11.9* 13.5 - 18 Final HCT, External 12/10/2014 37.2* 41 - 50 Final PLT, External 12/10/2014 104* 140 - 440 Final Neutrophils %, External 12/10/2014 70.6 39 - 80 Final Lymphocytes %, External 12/10/2014 14.7* 24 - 44 Final Monocytes %, External 12/10/2014 13.2* 0 - 12 Final Eosinophils %, External 12/10/2014 1.5 0 - 6 Final RBC, External 12/10/2014 4.83 4.3 - 5.7 Final MCV, External 12/10/2014 77* 81 - 99 Final RDW, External 12/10/2014 16.2* 10.5 - 15 Final Sodium, External 12/10/2014 133 132 - 143 Final Potassium, External 12/10/2014 4.2 3.6 - 5.1 Final Chloride, External 12/10/2014 97 95 - 112 Final Carbon Dioxide, External 12/10/2014 29 19 - 31 Final Calcium, External 12/10/2014 8.9 8.4 - 10.2 Final Magnesium, External 12/10/2014 1.6* 1.7 - 2.5 Final Protein, Total, External 12/10/2014 6.3 6 - 8 Final Albumin, External 12/10/2014 3.2* 3.5 - 5 Final Bilirubin, Total, External 12/10/2014 1.7* 0 - 1.2 Final ALP, External 12/10/2014 162* 30 - 128 Final AST, External 12/10/2014 69* 13 - 39 Final ALT, External 12/10/2014 25 7 - 52 Final Lipase, External 12/10/2014 20 11 - 82 Final Troponin T, External 12/10/2014 0.012* 0.01 Final CK, Total, External 12/10/2014 356* 24 - 195 Final CKMB, Total, External 12/10/2014 4.80 0 - 4.94 Final Glucose, External 12/10/2014 104* 70 - 100 Final BUN, External 12/10/2014 15 6 - 23 Final Culture 12/11/2014 No Growth Final Culture 12/11/2014 No Growth Final Culture 12/11/2014 No Growth Final Culture 12/11/2014 No Growth Final Culture 12/11/2014 No Growth Final Culture 12/11/2014 No Growth Final LEGIONELLA AG,U INTERP 12/10/2014 Negative Final C DIFFICILE ANTIGEN 12/10/2014 Negative Final C difficile Toxins A+B, EIA 12/10/2014 Negative Final Strep pneumo Ag 12/10/2014 Negative Final Ammonia 12/10/2014 66* 11 - 36 Final Phosphorus, External 12/10/2014 1.9* 2.5 - 5 Final INR, External 12/10/2014 1.3 Final PT, External 12/10/2014 10.5* 12.4 - 16.8 Final PTT, External 12/10/2014 34.5 22.9 - 41.3 Final UA Blood, External 12/10/2014 250* 0 - 0 Final UA Glucose, External 12/10/2014 Normal Final UA Ketones, External 12/10/2014 Negative Final UA Ph, External 12/10/2014 8 5 - 9 Final UA Proteins, External 12/10/2014 30* 0 - 0 Final UA RBC, External 12/10/2014 30* 0 - 4 Final UA Specific [place], External 12/10/2014 1.017 1.005 - 1.03 Final UA Leukocyte Esterase, External 12/10/2014 Negative Final COLLECTION METHOD 1 12/10/2014 Cath Final Color 12/10/2014 Yellow Final CLARITY 12/10/2014 Clear Final BILIRUBIN UA 12/10/2014 Negative Negative Final UROBILINOGEN UA 12/10/2014 Normal < 0.2 mg/dL, 1.0 mg/dL, 4.0 mg/dL, Normal, 1.0 E.U./ dL, 0.2 E.U./dL, 0.2 mg/dL, Negative, 1 mg/dL, <2.0 mg/dL Final NITRITE UA 12/10/2014 Negative Negative Final BACTERIA UA 12/10/2014 Trace* Negative /HPF Final CRYSTAL UA 12/10/2014 Negative Final SQUAMOUS EPITHELIAL UA 12/10/2014 0-2 0 - 2 /LPF Final Assessment: 1. Alcoholic cirrhosis of liver without ascites (HCC) Case request: EGD/Colonoscopy; N/A 2. Hepatic encephalopathy (HCC) rifAXIMin (XIFAXAN) 550 mg TABS Case request: EGD/Colonoscopy; N/A 3. Esophageal and gastric varices (HCC) Case request: EGD/Colonoscopy; N/A 4. S/P TIPS (transjugular intrahepatic portosystemic shunt) Case request: EGD/Colonoscopy; N/A 5. Lifelong obesity Case request: EGD/Colonoscopy; N/A 6. Advanced age Case request: EGD/Colonoscopy; N/A Plan: Alcoholic cirrhosis of liver: He has been sober from alcohol since 2009. Cirrhosis: Requesting records from most recent laboratory tests. We'll attempt to calculat e MELD score. If the appropriate labs were not completed, we'll then order repeat laborator y tests to calculate meld score. Liver Transplantation: Patient is not interested in being referred for evaluation of liver transplantation. Varices: Patient has had EGD to screen for esophageal varices. There is history or variceal bleed prior to TIPS in 2011. Patient to have EGD for further evaluation.The procedural techniques, risks, indications, a nd alternatives were discussed. Among the risks, are perforation, bleeding, infection, ivett rgic/adverse reactions to medications, and cardiovascular complications. Each of these coul d result in hospitalization, additional procedures (including surgery), or other life threat ening complications. Patient verbalized understanding.Patient to call with any questions or concerns prior to procedure. Ascites/Anasarca: Patient does have a history of ascites. Patient is on diuretics. This is controlling fluid overload. Hepatic Encephalopathy: Patient does have evidence of encephalopathy. Current treatment inc ludes lactulose. 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 There is evidence that patients with minimal encephalopathy have higher rates of car accidents. Because there is no accurate method of measuring HE. Patient is advised not to drive. Re-ordered Xifaxin 550 mg bid. Hepatocellular Carcinoma Screening: Patient is at increased risk of developing HCC. Patien t will need liver ultrasound, CBC, CMP, INR, and AFP every 6 months. Metabolic Bone Disease: long term care administrator Cirrhotics are at increased risk of developing osteopenia and osteoporosis. Oral bisphosphonates have been shown to increase the risk of variceal ble eding in patients with known varices. IV bisphosphonates are recommended. Recommend DEXA sca ns and treatment if needed by PCP. Insulin Resistance/Diabetes: Approximately 30% of cirrhotic patients will develop insulin r esistance or diabetes. Recommend routine screening and treatment by PCP. Vaccinations: Patient should remain up to date with immunizations. All patients with chroni c liver disease should have Hepatitis A and Hepatitis B vaccinations complete if not already immune. To be done with PCP. Pain Management: Patients with cirrhosis should NOT use NSAIDS. These are associated with h igher rate of renal insufficiency and GI bleeding. We prefer these patient to use acetaminop hen for pain control with a maximum dose of 2 grams per day. The use of narcotics should als o be kept to a minimum, as this can cause or exacerbate hepatic encephalopathy. Ultram or no n-narcotic regimens, such as TCAs or neurontin are preferred if acetaminophen is inadequate. With decompensation of liver disease Ultram needs to be dose reduced. Smoking Cessation: This patient is currently not smoking. Discussed cessation. When patient is ready to stop smoking buproprion or nicotine patches are safe. Discuss further with PCP. Patient to have colonoscopy for further evaluation. The procedural techniques, risks, indic ations, and alternatives were discussed. Among the risks, are perforation, bleeding, infect ion, allergic/adverse reactions to medications, and cardiovascular complications. Each of t hese could result in hospitalization, additional procedures (including surgery), or other li fe threatening complications. Patient verbalized understanding. Risk factors to colo-rectal cancer discussed with patient including smoking, obesity, excessive red meat ingestion, adv ancing age and first degree family relative with history of colo-rectal cancer discussed wit h patient. Patient to call with any questions or concerns prior to procedure. Recommend procedure with anesthesia due to BMI over 40 and history of hepatic encephalopath y Will request labs and imaging from [facility] in [facility]. Will follow up with results. Patient is to call with any question or concerns. Any fevers, chills, chest pain, SOB or other serious symptoms patient is to call the office or go to ER . Cc: Abiel Fontenot MD This note was dictated using voice recognition software. Please contact me if there are an y questions regarding its content. in this encounter Plan of Treatment Not on fileas of this encounter Results IMAGING REPORT - EXTERNAL SCAN (06/20/2017) + + | Narrative | + + | Ordered by an unspecified provider. | + + in this encounter Visit Diagnoses + + | Diagnosis | + + | Alcoholic cirrhosis of liver without ascites (HCC) - Primary | + + | Alcoholic cirrhosis of liver | + + | Hepatic encephalopathy (HCC) | + + | Hepatic encephalopathy | + + | Esophageal and gastric varices (HCC) | + + | Esophageal varices without mention of bleeding | + + | S/P TIPS (transjugular intrahepatic portosystemic shunt) | + + | Other postprocedural status | + + | Obesity, morbid, BMI 40.0-49.9 (HCC) | + + | Advanced age | + + | Reserved for inherently not codable concepts WITHOUT codable children | + +"
--- OUTSIDE RECORDS SUMMARY | ~2017-12-05 | XMS | Encounter Summary ---
Demographics + + + | Address | [address] | | | [place] [address] | + + + | Home Phone | | + + + | Preferred Language | Unknown | + + + | Marital Status | | + + + | Faith Affiliation | Unknown | + + + | Race | Unknown | + + + | Ethnic Group | Unknown | + + + Author + + + | Author | [facility] | + + + | Organization | [facility] | + + + | Address [...] Team Providers + +------+ + | Care Bone Char Operator Name | Role | Phone | + [...] of | | 2017 | Procedure | ECHO | [address] | breath); Aortic | | | | | [place], [place] | valve stenosis, | | | | | [address] | etiology of cardiac | | | [...] Treatment Not on fileas of this encounter Procedures + +--------+ + + + | [...] | | + +--------+ + + + in this encounter Results ECHO outside interpretation standard (10/12/2017 11:39 AM) + + + | Specimen | Performing Laboratory | + + + | | [address] [address] | + + + + + | [...] mmHg TR Vmax: | | 3.24 m/s Human Resources District Manager: Authenticated by: JEREMY BEAVER MD Report Date/Time: | | 10-15-2017 12:15:23 | + + + + | Procedure Note | + + | Moris, Rad Results In - 10/15/2017 12:20 PM PST Patient Name: Shahana Lewis of | | : 5Accession: [id number] Physician: JEREMY BEAVER MD | | INDICATIONS [...] cmLVPWd: | | 1.19 cmLVOT Area: 3.72 [id number] Diam: 2.17 cm%FS: 36.61 %EF(Teich): 65.55 | [...] (A-L): 48.23 ml/m2LAAs A2C: | | 25.72 [id number] A-L A2C: 88.02 mlLALs A2C: 6.38 cmLAAs A4C: 32.27 kd1LIIHC A-L A4C: | | 122.65 mlLALs A4C: 7.21 cmRAAs: 25.44 [id number] A-L: 87.31 mlRAESV MOD: 83.40 | | mlRALs: 6.39 cmTAPSE: 3.74 cmAV maxP.42 mmHgAV meanP.53 mmHgAV Vmax: | | 3.39 m/Verna Vmean: 2.47 m/Verna VTI: 91.88 cmAVA Vmax: 1.30 cm2AVA (VTI): 1.29 | | [id number] Vmax: 0.00 cm2/m2AVAI (VTI): 0.00 cm2/m2LVOT maxP.68 mmHgLVOT meanPG: | | 3.19 mmHgLVSI Dopp: 51.78 ml/m2LVSV Dopp: 118.58 mlLVOT Vmax: 1.19 m/sLVOT | | Vmean: 0.84 m/sLVOT VTI: 31.82 cmMV A Casa: 1.28 m/sMV DecT: 199.72 msMV E Casa: | | 1.58 m/sMV E/A Ratio: 1.23 MV PHT: 57.92 msMVA By PHT: 3.79 io8Izjuea e': 0.04 | | m/sSeptal E/e': 36.70 Lateral e': 0.11 m/sLateral E/e': 13.79 RAP: 5 mmHgRVSP: | | 47.05 mmHgTR maxP.05 mmHgTR Vmax: 3.24 m/sSonographer: Authenticated by: | | CRIS RIVASeport Date/Time: 10-15-2017 12:15:23IMPRESSION:1. This was a technically [...] |TR Vmax: 3.24 m/s | | | |Human Resources District Manager: | |Authenticated by: JEREMY BEAVER MD | [...]
--- OUTSIDE RECORDS SUMMARY | ~2017-12-05 | XMS | Encounter Summary ---
Demographics + + + | Address | [address] | | | [place] [address] | + + + | Home Phone | | + + + | Preferred Language | Unknown | + + + | Marital Status | Unknown | + + + | Yarsanism Affiliation | Unknown | + + + | Race | Unknown | + + + | Ethnic Group | Unknown | + + + Author + + + | Author | [facility] | | | and [place] | + + + | Organization | [facility] | | | and [place] | [...] [place] | | | | | [address] | | + + + + + Care Team Providers + +------+ + | Care Window Glazier Name | Role | Phone | + [...] + + | 11/09/ | Telephone | [facility] | [facility], | Medication Question | | 2018 | | GASTROENTEROLOGY | BAILEY Rodriguez [address] | | | | | [address] [place] | [place], [place] [address] | | | | | [address] [place], [place] | [place], [place] | | | | | [address] | [address] | | | | | [phone] | | | +--------+ + + + [...]
--- OUTSIDE RECORDS SUMMARY | ~2017-12-05 | XMS | Encounter Summary ---
Demographics + + + | Address | [address] | | | [place] [address] | + + + | Home Phone | | + + + | Preferred Language | Unknown | + + + | Marital Status | | + + + | Lutheran Affiliation | Unknown | + + + | Race | Unknown | + + + | Ethnic Group | Unknown | + + + Author + + + | Author | [facility] | + + + | Organization | [facility] | + + + | Address [...] Team Providers + +------+ + | Care Appraiser Land Name | Role | Phone | + [...] valve stenosis, | | | | | [address] | etiology of cardiac | | | [...] Laboratory | + + + | | [address] [address] | + + + + + | [...] mmHg TR Vmax: | | 3.24 m/s Dairy Equipment Installer: Authenticated by: JEREMY BEAVER MD Report Date/Time: | | 10-15-2017 12:15:23 | + + + + | Procedure Note | + + | David Subramanian Results In - 10/15/2017 12:20 PM PST Patient Name: Shahana Lewis of | | : 5Accession: [id number] Physician: JEREMY BEAVER MD | | INDICATIONS [...] cmLVPWd: | | 1.19 cmLVOT Area: 3.72 mm2OEKH Diam: 2.17 cm%FS: 36.61 %EF(Teich): 65.55 | [...] (A-L): 48.23 ml/m2LAAs A2C: | | 25.72 mi6SGVQL A-L A2C: 88.02 mlLALs A2C: 6.38 cmLAAs A4C: 32.27 nd2DXXKG A-L A4C: | | 122.65 mlLALs A4C: 7.21 cmRAAs: 25.44 am9FAQBM A-L: 87.31 mlRAESV MOD: 83.40 | | mlRALs: 6.39 cmTAPSE: 3.74 cmAV maxP.42 mmHgAV meanP.53 mmHgAV Vmax: | | 3.39 m/Verna Vmean: 2.47 m/Verna VTI: 91.88 cmAVA Vmax: 1.30 cm2AVA (VTI): 1.29 | | sq7IVLH Vmax: 0.00 cm2/m2AVAI (VTI): 0.00 cm2/m2LVOT maxP.68 mmHgLVOT meanPG: | | 3.19 mmHgLVSI Dopp: 51.78 ml/m2LVSV Dopp: 118.58 mlLVOT Vmax: 1.19 m/sLVOT | | Vmean: 0.84 m/sLVOT VTI: 31.82 cmMV A Casa: 1.28 m/sMV DecT: 199.72 msMV E Casa: | | 1.58 m/sMV E/A Ratio: 1.23 MV PHT: 57.92 msMVA By PHT: 3.79 nl9Hnefim e': 0.04 | | m/sSeptal E/e': 36.70 [...] |TR Vmax: 3.24 m/s | | | |Dairy Equipment Installer: | |Authenticated by: JEREMY BEAVER MD | [...]
--- OUTSIDE RECORDS SUMMARY | ~2017-12-05 | XMS | Clinical Summary ---
Demographics + + + | Address | [address] | | | [place] [address] | + + + | Home Phone | | + + + | Preferred Language | Unknown | + + + | Marital Status | Unknown | + + + | Quaker Affiliation | Unknown | + + + | Race | Unknown | + + + | Ethnic Group | Unknown | + + + Author + + + | Author | [facility] | | | and [place] | + + + | Organization | [facility] | | | and [place] | + + + | Address | Unknown | + + + | Phone | Unavailable | + + + Support + + + + + | Name | Relationship | Address | Phone | + + + + + | Kourtney Lewis | ECON | [address] | | | | | [place] | | | | | [address] | | + + + + + Care Team Providers + +------+ + | Care Nutter Up Name | Role | Phone | + +------+ + | Abeil Fontenot MD | PP | | + +------+ + Allergies + + + + + + | Active Allergy | Reactions | Severity | Noted | Comments | | | | | Date | | + + + + + + | Morphine | Nausea And Vomiting | Low | 03/06/20 | | | | | | 15 | | + + + + + + Current Medications + + +--------+---------+------+------+-------+ | Prescription | Sig. | Disp. | Refills | Star | End | Statu | | | | | | t | Date | s | | | | | | Date | | | + + +--------+---------+------+------+-------+ | furosemide (LASIX) | Take 40 mg by mouth | | | | | Activ | | 20 mg tablet | 2 times daily. | | | | | e | + + +--------+---------+------+------+-------+ | lactulose 10 g/15 | Take 10 g by mouth 4 | | | | | Activ | | mL solution | times daily. | | | | | e | + + +--------+---------+------+------+-------+ | omeprazole | Take 20 mg by mouth | | | | | Activ | | (PRILOSEC) 20 mg | every morning | | | | | e | | capsule | (before breakfast). | | | | | | + + +--------+---------+------+------+-------+ | Potassium | Take by mouth as | | | | | Activ | | Gluconate 595 MG | needed. | | | | | e | | TBCR | | | | | | | + + +--------+---------+------+------+-------+ | spironolactone | Take 25 mg by mouth | | | | | Activ | | (ALDACTONE) 25 mg | Daily. | | | | | e | | tablet | | | | | | | + + +--------+---------+------+------+-------+ | rOPINIRole | Take 0.25 mg by | | | | | Activ | | (REQUIP) 0.25 mg | mouth 3 times daily. | | | | | e | | tablet | | | | | | | + + +--------+---------+------+------+-------+ | magnesium, as | Take 250 mg by mouth | | | | | Activ | | oxide, 250 MG tablet | Daily. | | | | | e | + + +--------+---------+------+------+-------+ | potassium chloride | Take 20 mEq by mouth | | | | | Activ | | (K-DUR) 20 mEq ER | Daily. | | | | | e | | tablet | | | | | | | + + +--------+---------+------+------+-------+ | rifAXIMin | Take 1 tablet by | 60 | 2 | 03/1 | | Activ | | (XIFAXAN) 550 mg | mouth 2 times daily. | tablet | | 2/20 | | e | | TABSIndications: | | | | 18 | | | | Hepatic | | | | | | | | encephalopathy (HCC) | | | | | | | + + +--------+---------+------+------+-------+ | ondansetron | As needed for | 2 | 0 | 03/1 | | Activ | | (ZOFRAN) 4 mg tablet | nausea; stop prep; | tablet | | 2/20 | | e | | | take 1 tablet; wait | | | 18 | | | | | 30 min then resume | | | | | | | | prep; repeat 1x prn | | | | | | + + +--------+---------+------+------+-------+ Active Problems + + + | Problem | Noted Date | + + + | Alcoholic cirrhosis of liver (HCC) | 03/08/2015 | + + + | Hepatic encephalopathy (HCC) | 03/08/2015 | + + + | Esophageal and gastric varices (HCC) | 03/08/2015 | + + + | Thrombocytopenia (HCC) | 03/08/2015 | + + + | Alcoholic cirrhosis of liver without ascites (HCC) | 03/07/2015 | + + + Encounters +--------+ + + + + | Date | Type | Specialty | Care Team | Description | +--------+ + + + + | 11/23/ | Telephone | | Maynor Rivas MD | Follow-up, Office | | 2017 | | | | Visit | +--------+ + + + + | 11/09/ | Telephone | | Jairon Lewis Medication Question | | 2017 | | | BAILEY Rodriguez | | +--------+ + + + + | 11/09/ | Episode | | Giovanna Muller, | | | 2017 | Changes | | RN | | +--------+ + + + + | 11/09/ | Telephone | | Debbie, | Medication Follow-up | | 2017 | | | BAILEY Rodriguez | | +--------+ + + + + | 10/27/ | Telephone | | Debbie, | Other | | 2018 | | | BAILEY Rodriguez | | +--------+ + + + + | 10/26/ | Office | | Debbie, | Alcoholic cirrhosis | | 2018 | Visit | | BAILEY Rodriguez | of liver without | | | | | | ascites (HCC) | | | | | | (Primary Dx); | | | | | | Hepatic | | | | | | encephalopathy | | | | [...] | | | | Advanced age | +--------+ + + + + | 09/11/ | Telephone | | Debbie, | Other (Calling with | | 2017 | | | BAILEY Rodriguez | regard to getting | | | | | | medication) | +--------+ + + + + from Last 3 Months Immunizations + + + + | Name | Dates Previously Given | Next Due | + + + + | PNEUMOCOCCAL, | 04/11/2011 | | | UNSPECIFIED | | | | FORMULATION | | | + + + + Family History + + +------+ + | Medical History | Relation | Name | Comments | + + +------+ + | Diabetes | Father | | | + + +------+ + | Heart failure | Father | | | + + +------+ + | Thyroid disease | Mother | | | + + +------+ + + +------+ + + | Relation | Name | Status | Comments | + +------+ + + | Father [...] + | Oxygen Saturation | 96% | 10/26/2017 1016 PDT | + + + + | Inhaled Oxygen | - | - | | Concentration | | | + + + + | Weight | 129.5 kg (285 lb 7.9 | 10/26/2017 1016 PDT | | | oz) | | + + + + | Height | 177.8 cm (5' 10") | 03/13/2015 1028 PDT | + + + + | Body Mass Index | 40.96 | 10/26/2017 1016 PDT | + + + + Plan of Treatment + + + + + | Health Maintenance | Due Date | Last Done | Comments | + + + + + | Hepatitis C | | | | | Screening | 5 | | | + + + + + | COLON CANCER | | | | | SCREENING | 5 | | | | (COLONOSCOPY EVERY | | | | | 10 YEARS 50-75) | | | | + + + + + | Vaccine: Zoster (#1) | | | | | | [...] | | + + + + + Results Not on filefrom Last 3 Months Insurance + +--------+ +--------+ +---------+ | Payer | Benefi | Subscriber | Type | Phone | Address | | | t Plan | ID | | | | | | / | | | | | | | Group | | | | | + +--------+ +--------+ +---------+ | MEDICARE | MEDICA | xxxxxxxxxx | Medica | [phone] | | | RE | | re | [phone] | | | | PART A | | | | | | | AND B | | | | | + +--------+ +--------+ +---------+ | AETNA SENIOR | AETNA | xxxxxxxxxx | Indemn | [phone] | | SUPPLEMENTAL INS | LIFE | | [phone] | [phone] | | | | INS CO | | | | | | | MDCR | | | | | | | SUPPL | | | | | + +--------+ +--------+ +---------+ + +--------+ +--------+ + + | Guarantor Name | Accoun | Relation to | Date | Phone | Billing Address | | | t Type | Patient | of | | | | | | | | | | + +--------+ +--------+ + + | ISMA LEWIS | Person | Self [birth year] Home: | [address] | | | al/Fam | | 1945 | [phone] | [place] [address] | | | [place] | | | [phone] | | + +--------+ +--------+ + +
--- OUTSIDE RECORDS SUMMARY | ~2017-12-05 | XMS | Encounter Summary ---
Demographics + + + | Address | [address] | | | [place] [address] | + + + | Home Phone | | + + + | Preferred Language | Unknown | + + + | Marital Status | Unknown | + + + | Islam Affiliation | Unknown | + + + | Race | Unknown | + + + | Ethnic Group | Unknown | + + + Author + + + | Author | [facility] | | | and [place] | + + + | Organization | [facility] | | | and [place] [...] [address] | | | | | [address] | | + + + + + Care Team Providers + +------+ + | Care Hand Riveter Name | Role | Phone | + +------+ + | Abiel Fontenot MD | PCP | | + +------+ + Reason for Visit +--------+ + | Reason | Comments | +--------+ + | Other | | +--------+ + Encounter Details +--------+ + + + + | Date | Type | Department | Care Team | Description | +--------+ + + + + | 10/27/ | Telephone | [facility] [place] | [place], | Other | | 2018 | | GASTROENTEROLOGY | Jennifer GALLERY MANAGER [address] | | | | | [address] [place] | [place], [place] [address] | | | | | [address] [place], [place] | [place], [place] | | | | | [address] | [address] | | | | | [phone] | | | +--------+ + + + [...]
--- OUTSIDE RECORDS SUMMARY | ~2017-12-05 | XMS | Encounter Summary ---
Demographics + + + | Address | [address] | | | [place] [address] | + + + | Home Phone | | + + + | Preferred Language | Unknown | + + + | Marital Status | Unknown | + + + | Samaritan Affiliation | Unknown | + + + | Race | Unknown | + + + | Ethnic Group | Unknown | + + + Author + + + | Author | [facility] | | | and [place] | + + + | Organization | [facility] | | | and [place] | [...] [address] [place] | | | | | [address] | | + + + + + Care Team Providers + +------+ + | Care Python Django Developer Name | Role | Phone | + +------+ + | Abiel Fontenot MD | PCP | | + +------+ + Reason for Visit +--------+ + | Reason | Comments | +--------+ + | Other | Calling with regard to getting medication | +--------+ + Encounter Details +--------+ + + + + | Date | Type | Department | Care Team | Description | +--------+ + + + + | 09/11/ | Telephone | [facility] | [facility], | Other (Calling with | | 2017 | | GASTROENTEROLOGY | BAILEY Rodriguez [address] | regard to getting | | | | [address] [place] | [place], [place] [address] | medication) | | | | [address] [place], [place] | [place] | | | | | [address] | [address] | | | | | [phone] | | | +--------+ + + + [...]
--- OUTSIDE RECORDS SUMMARY | ~2017-12-05 | XMS | Encounter Summary ---
Demographics + + + | Address | [address] | | | [place] [address] | + + + | Home Phone | | + + + | Preferred Language | Unknown | + + + | Marital Status | Unknown | + + + | Judaism Affiliation | Unknown | + + + | Race | Unknown | + + + | Ethnic Group | Unknown | + + + Author + + + | Author | [facility] | | | and [place] | + + + | Organization | [facility] | | | and [...] [address] | | | | | [address] | | + + + + + Care Team Providers + +------+ + | Care Tool Adjuster Name | Role | Phone | + [...] | 2018 | | GASTROENTEROLOGY | Jennifer TOXICOLOGY SUPERVISOR [address] | | | | | [address] [place] | [place], [place] [address] | | | | | [address] [place], [place] | [place], [place] | | | | | [address] | [address] | | | | | [phone] | | | +--------+ + + + [...]
--- OUTSIDE RECORDS SUMMARY | ~2017-12-05 | XMS | Clinical Summary ---
Demographics + + + | Address | [address] | | | [place] [address] | + + + | Home Phone | | + + + | Preferred Language | Unknown | + + + | Marital Status | | + + + | Presybeterian Affiliation | Unknown | + + + | Race | Unknown | + + + | Ethnic Group | Unknown | + + + Author + + + | Author | [facility] | + + + | Organization | [facility] | + + + | Address [...] Team Providers + +------+ + | Care Guide Name | Role | Phone | + [...] Laboratory | + + + | | [address] [address] | + + + + + | [...] mmHg TR Vmax: | | 3.24 m/s Bioinformatics Specialist: Authenticated by: JEREMY BEAVER MD Report Date/Time: | | 10-15-2017 12:15:23 | + + + + | Procedure Note | + + | David Subramanian Results In - 10/15/2017 12:20 PM PST Patient Name: Shahana Lewis of | | : 5Accession: [id number] Physician: JEREMY BEAVER MD | | INDICATIONS [...] cmLVPWd: | | 1.19 cmLVOT Area: 3.72 hu1PCKU Diam: 2.17 cm%FS: 36.61 %EF(Teich): 65.55 | [...] (A-L): 48.23 ml/m2LAAs A2C: | | 25.72 sp2YFGOP A-L A2C: 88.02 mlLALs A2C: 6.38 cmLAAs A4C: 32.27 sl1UJFEW A-L A4C: | | 122.65 mlLALs A4C: 7.21 cmRAAs: 25.44 mc0BCFQK A-L: 87.31 mlRAESV MOD: 83.40 | | mlRALs: 6.39 cmTAPSE: 3.74 cmAV maxP.42 mmHgAV meanP.53 mmHgAV Vmax: | | 3.39 m/Verna Vmean: 2.47 m/Verna VTI: 91.88 cmAVA Vmax: 1.30 cm2AVA (VTI): 1.29 | | bw4SFFW Vmax: 0.00 cm2/m2AVAI (VTI): 0.00 cm2/m2LVOT maxP.68 mmHgLVOT meanPG: | | 3.19 mmHgLVSI Dopp: 51.78 ml/m2LVSV Dopp: 118.58 mlLVOT Vmax: 1.19 m/sLVOT | | Vmean: 0.84 m/sLVOT VTI: 31.82 cmMV A Casa: 1.28 m/sMV DecT: 199.72 msMV E Casa: | | 1.58 m/sMV E/A Ratio: 1.23 MV PHT: 57.92 msMVA By PHT: 3.79 ip8Zmfetx e': 0.04 | | m/sSeptal E/e': 36.70 Lateral e': 0.11 m/sLateral E/e': 13.79 RAP: 5 mmHgRVSP: | | 47.05 mmHgTR maxP.05 mmHgTR Vmax: 3.24 m/sSonographer: Authenticated by: | | [facility] Date/Time: 10-15-2017 12:15:23IMPRESSION:1. This was a [...] |TR Vmax: 3.24 m/s | | | |Bioinformatics Specialist: | |Authenticated by: JEREMY BEAVER MD | [...] | [place] | | | [address] | [address] | + +--------+ +--------+ + +
--- OUTSIDE RECORDS SUMMARY | ~2017-12-05 | XMS | Clinical Summary ---
Demographics + + + | Address | [address] | | | [place] [address] | + + + | Home Phone | | + + + | Preferred Language | Unknown | + + + | Marital Status | Unknown | + + + | Spiritism Affiliation | Unknown | + + + | Race | Unknown | + + + | Ethnic Group | Unknown | + + + Author + + + | Author | [facility] | | | and [place] | + + + | Organization | [facility] | | | and [place] | [...] [address] | | | | | [address] | | + + + + + Care Team Providers + +------+ + | Care Can Filling Room Sweeper Name | Role | Phone | + [...] | AETNA | xxxxxxxxxx | Indemn | [phone] | | | SUPPLEMENTAL INS | LIFE [...] | 1945 | [phone] | [place] [address] | | | [place] | | | [address] | | + +--------+ +--------+ + +
--- OUTSIDE RECORDS SUMMARY | ~2017-12-05 | XMS | Encounter Summary ---
Demographics + + + | Address | [address] | | | [place] [address] | + + + | Home Phone | | + + + | Preferred Language | Unknown | + + + | Marital Status | | + + + | Jewish Affiliation | Unknown | + + + | Race | Unknown | + + + | Ethnic Group | Unknown | + + + Author + + + | Author | [facility] [employer] | + + + | Organization | [facility] [facility] | + + + | Address [...] Team Providers + +------+ + | Care Laborer Shellfish Processing Name | Role | Phone | + [...] valve stenosis, | | | | | [address] | etiology of cardiac | | | [...] Laboratory | + + + | | [address] [address] | + + + + + | [...] mmHg TR Vmax: | | 3.24 m/s Director Of First Impressions: Authenticated by: JEREMY BEAVER MD Report Date/Time: | | 10-15-2017 12:15:23 | + + + + | Procedure Note | + + | Moris, Rad Results In - 10/15/2017 12:20 PM PST Patient Name: Shahana Lewis of | | : 5Accession: [id number] Physician: JEREMY BEAVER MD | | INDICATIONS [...] cmLVPWd: | | 1.19 cmLVOT Area: 3.72 kz4DBED Diam: 2.17 cm%FS: 36.61 %EF(Teich): 65.55 | [...] (A-L): 48.23 ml/m2LAAs A2C: | | 25.72 cf5KMNCF A-L A2C: 88.02 mlLALs A2C: 6.38 cmLAAs A4C: 32.27 pb8PNMJO A-L A4C: | | 122.65 mlLALs A4C: 7.21 cmRAAs: 25.44 lj1PMRIV A-L: 87.31 mlRAESV MOD: 83.40 | | mlRALs: 6.39 cmTAPSE: 3.74 cmAV maxP.42 mmHgAV meanP.53 mmHgAV Vmax: | | 3.39 m/Verna Vmean: 2.47 m/Verna VTI: 91.88 cmAVA Vmax: 1.30 cm2AVA (VTI): 1.29 | | of9LDGS Vmax: 0.00 cm2/m2AVAI (VTI): 0.00 cm2/m2LVOT maxP.68 mmHgLVOT meanPG: | | 3.19 mmHgLVSI Dopp: 51.78 ml/m2LVSV Dopp: 118.58 mlLVOT Vmax: 1.19 m/sLVOT | | Vmean: 0.84 m/sLVOT VTI: 31.82 cmMV A Casa: 1.28 m/sMV DecT: 199.72 msMV E Casa: | | 1.58 m/sMV E/A Ratio: 1.23 MV PHT: 57.92 msMVA By PHT: 3.79 sz9Yegrgo e': 0.04 | | m/sSeptal E/e': 36.70 [...] |TR Vmax: 3.24 m/s | | | |Director Of First Impressions: | |Authenticated by: JEREMY BEAVER MD | [...]
--- OUTSIDE RECORDS SUMMARY | ~2017-12-05 | XMS | Encounter Summary ---
Demographics + + + | Address | [address] | | | [place] [address] | + + + | Home Phone | | + + + | Preferred Language | Unknown | + + + | Marital Status | Unknown | + + + | Voodoo Affiliation | Unknown | + + + | Race | Unknown | + + + | Ethnic Group | Unknown | + + + Author + + + | Author | [facility] | | | and [place] | + + + | Organization | [facility] | | | and [place] [...] [address] | | | | | [address] | | + + + + + Care Team Providers + +------+ + | Care Loan Servicing Officer Name | Role | Phone | [...] + + | 10/26/ | Office | [facility] [place] | [facility], | Alcoholic cirrhosis | | 2018 | Visit | GASTROENTEROLOGY | BAILEY Rodriguez [address] | of liver without | | | | [address] [place] | [place], [place] [address] | ascites (HCC) | | | | [address] [place], [place] | [place], [place] | (Primary Dx); | | | | [address] | [address] | Hepatic | | | | [phone] | | encephalopathy | | | | [...] CARE: Abiel Fontenot MD Subjective: CHIEF COMPLAINT: Gilels Lewis is a 72 y.o. male is [...] that he was in the hospital in [facility] related to his liver. He states that he wa s stabilized and allowed to come home. He does not think that an upper endoscopy was done a t that time. He is fairly confident that imaging was done. We do not have records from cathy s hospitalization. He also reports that he had abdominal ultrasound done about 6 months ago in [place]. Cathy s record is also not available [...] Procedure: EGD; Surgeon: Maynor Rivas MD; Location: [facility] Family History Problem [...] 12/13/2014 25.0* 27.0 - 33.0 pg Final [facility] 12/13/2014 31.0 Final BASOPHILS % 12/13/2014 0.4 [...] 12/11/2014 24.0* 27.0 - 33.0 [facility] 12/11/2014 31.0 % Final BASOPHILS % 12/11/2014 [...] 30* 0 - 4 Final UA Specific [place], External 12/10/2014 1.017 1.005 - 1.03 Final [...] AFP every 6 months. Metabolic Bone Disease: oysterman Cirrhotics are at increased risk of developing [...] y Will request labs and imaging from [facility] in [facility]. Will follow up with results. Patient [...]
--- OUTSIDE RECORDS SUMMARY | ~2017-12-05 | XMS | Encounter Summary ---
Demographics + + + | Address | [address] | | | [place] [address] | + + + | Home Phone | | + + + | Preferred Language | Unknown | + + + | Marital Status | Unknown | + + + | Restoration Affiliation | Unknown | + + + | Race | Unknown | + + + | Ethnic Group | Unknown | + + + Author + + + | Author | [facility] | | | and [place] | + + + | Organization | [facility] | | | and [place] [...] [address] | | | | | [address] | | + + + + + Care Team Providers + +------+ + | Care Litigation Associate Name | Role | Phone | + +------+ + | Abiel Fontenot MD | PCP | | + +------+ + Reason for Visit + + + | Reason | Comments | + + + | Medication Follow-up | | + + + Encounter Details +--------+ + + + + | Date | Type | Department | Care Team | Description | +--------+ + + + + | 11/09/ | Telephone | [facility] | [facility], | Medication Follow-up | | 2018 | | GASTROENTEROLOGY | BAILEY Rodriguez [address] | | | | | [address] [place] | [place], [place] [address] | | | | | [address] [place], [place] | [place], [place] | | | | | [address] | [address] | | | | | [phone] | | | +--------+ + + + [...]
--- OUTSIDE RECORDS SUMMARY | ~2017-12-05 | XMS | Encounter Summary ---
Demographics + + + | Address | [address] | | | [place] [address] | + + + | Home Phone | | + + + | Preferred Language | Unknown | + + + | Marital Status | Unknown | + + + | Church Affiliation | Unknown | + + + | Race | Unknown | + + + | Ethnic Group | Unknown | + + + Author + + + | Author | [facility] | | | and [place] | + + + | Organization | [facility] | | | and [place] | + + + | Address | Unknown | + + + | Phone | Unavailable | + + + Support + + + + + | Name | Relationship | Address | Phone | + + + + + | Kourtney Lewis | ECON | [address] | | | | | [address] | | | | | [address] | | + + + + + Care Team Providers + +------+ + | Care Cuff Setter Lockstitch Name | Role | Phone | + +------+ + | Abiel Fontenot MD | PCP | | + +------+ + Reason for Visit + + + | Reason | Comments | + + + | Follow-up, Office | | | Visit | | + + + Encounter Details +--------+ + + + + | Date | Type | Department | Care Team | Description | +--------+ + + + + | 11/23/ | Telephone | [facility] | Maynor Rivas MD | Follow-up, Office | | 2018 | | GASTROENTEROLOGY | [address] | Visit | | | | [address] [place] | [place] [address] [place] | | | | | [address] [place] | [place] [address] | | | | | [address] | [phone] | | | | | [phone] | | | +--------+ + + + [...]
--- OUTSIDE RECORDS SUMMARY | ~2017-12-05 | XMS | Encounter Summary ---
Demographics + + + | Address | [address] | | | [place] [address] | + + + | Home Phone | | + + + | Preferred Language | Unknown | + + + | Marital Status | Unknown | + + + | Catholic Affiliation | Unknown | + + + | Race | Unknown | + + + | Ethnic Group | Unknown | + + + Author + + + | Author | [facility] | | | and [place] | + + + | Organization | [facility] | | | and [...] [address] | | | | | [address] | | + + + + + Care Team Providers + +------+ + | Care Clutch Inspector Name | Role | Phone | + [...] + + | 11/23/ | Telephone | [facility] | Maynor Rivas MD | Follow-up, Office | | 2018 | | GASTROENTEROLOGY | [address] | Visit | | | | [address] [place] | [place] [address] [place] | | | | | [address] [place] | [place] [address] | | | | | [address] | [phone] | | | | | [phone] | | | +--------+ + + + [...]
--- OUTSIDE RECORDS SUMMARY | ~2017-12-05 | XMS | Encounter Summary ---
Demographics + + + | Address | [address] | | | [place] [address] | + + + | Home Phone | | + + + | Preferred Language | Unknown | + + + | Marital Status | Unknown | + + + | Mandaeism Affiliation | Unknown | + + + | Race | Unknown | + + + | Ethnic Group | Unknown | + + + Author + + + | Author | [facility] | | | and [place] | + + + | Organization | [facility] | | | and [place] | [...] [address] | | | | | [address] | | + + + + + Care Team Providers + +------+ + | Care Business Management Analyst Name | Role | Phone | [...] | Telephone | PM [address] | [facility], | Other (Calling with | | 2017 | | GASTROENTEROLOGY | BAILEY Rodriguez [address] | regard to getting | | | | [address] [place] | [place], [place] [address] | medication) | | | | [address] [place], [place] | [place] | | | | | [address] | [address] | | | | | [phone] | | | +--------+ + + + [...]
--- OUTSIDE RECORDS SUMMARY | ~2017-12-05 | XMS | Encounter Summary ---
Demographics + + + | Address | [address] | | | [place] [address] | + + + | Home Phone | | + + + | Preferred Language | Unknown | + + + | Marital Status | Unknown | + + + | Hinduism Affiliation | Unknown | + + + | Race | Unknown | + + + | Ethnic Group | Unknown | + + + Author + + + | Author | [facility] | | | and [place] | + + + | Organization | [facility] | | | and [place] [...] [address] [place] | | | | | [address] | | + + + + + Care Team Providers + +------+ + | Care Electrician Front Name | Role | Phone | + [...] [place] | | | | | | [address] | | | | | | [phone] | | | +--------+ + + + [...]
--- OUTSIDE RECORDS SUMMARY | ~2017-12-05 | XMS | Encounter Summary ---
Demographics + + + | Address | [address] | | | [place] [address] | + + + | Home Phone | | + + + | Preferred Language | Unknown | + + + | Marital Status | Unknown | + + + | Jew Affiliation | Unknown | + + + | Race | Unknown | + + + | Ethnic Group | Unknown | + + + Author + + + | Author | [facility] | | | and [place] | + + + | Organization | [facility] | | | and [place] [...] [address] | | | | | [address] | | + + + + + Care Team Providers + +------+ + | Care Airport Operations Manager Name | Role | Phone | + [...] + + | 11/09/ | Telephone | [facility] | [facility], | Medication Follow-up | | 2018 | | GASTROENTEROLOGY | BAILEY Rodriguez [address] | | | | | [address] [place] | [place], [place] [address] | | | | | [address] [place], [place] | [place], [place] | | | | | [address] | [address] | | | | | [phone] | | | +--------+ + + + [...]
[~2017-12-05 08:52] MED LIST changes: +TRAZODONE HCL50 MG PO
[2017-12-05] MEDS ORDERED: CONSTULOSE10 GM/15 M PO (09:12)
--- NOTE | 2017-12-05 13:49 | EKG ---
[facility] [address] [facility] [place] [address] Signed Normal sinus rhythm Left bundle branch block Abnormal ECG When compared with ECG of 07-NOV-2017 06:17, premature atrial complexes are no longer present Confirmed by WILY CRUZ MD ([id number]) on 12/05/2017 1:49:41 PM Electronically Signed By: WILY CRUZ MD 12/05/17 1349 PATIENT NAME: ISMA DELGADILLO Electrocardiogram DATE OF : 45 PHYSICIAN: WILY CRUZ MD REPORT #: [id number] REPORT IS CONFIDENTIAL AND NOT TO BE RELEASED WITHOUT AUTHORIZATION
== END 2017-12-05 13:03 | disposition short-term general hospital (02) ==
LOC: ED 08:52
DX: I21.4 Non-ST elevation (NSTEMI) myocardial infarction (principal); I50.9 Heart failure, unspecified; Z87.891 Personal history of nicotine dependence; Z88.5 Allergy status to narcotic agent; Z88.7 Allergy status to serum and vaccine; Z79.899 Other long term (current) drug therapy
CPT/HCPCS: 36600; 71045; 80053; 81001; 82140; 82803; 83735; 83880; 84484; 85025; 93005; 93010; 96374; 99285

== ENCOUNTER 2018-01-02 14:49 | Inpatient (IN) | payer MEDICARE, OTHER ==
[~2018-01-02] VITALS: Ht 177.8 cm; Wt 129.8 kg
--- NOTE | 2018-01-02 18:15 | NUR ---
PATIENT WOULD NOT TRANSFER OVER TO BED. OXANA LIFT USED TO TRANSFER PT TO BED FROM STRETCHER. PATEINT MOANING AND UNABLE TO ANSWER ANY QUESTIONS. HIS IN ROOM TO ASSIST IN ANSWERING QUESTIONS. MED REC CORRECTED PER WHAT . ASSESSMENT COMPLETE.
[2018-01-02] MEDS ORDERED: TRAZODONE HCL150 MG PO (18:25)
[2018-01-02] MEDS ORDERED: LASIX80 MG PO (18:27)
[2018-01-02] MEDS ORDERED: LASIX40 MG PO (18:28)
--- NOTE | 2018-01-02 19:07 | NUR ---
IN ROOM FOR REPORT, PT IS TRYING TO CLIMB OUT OF BED AND CANNOT BE LEFT ALONE AT THIS TIME. DAY RN WITH REMAIN IN THE ROOM AT THIS TIME UNTIL WE CAN GET OTHER 1-1 COVERAGE. BED ALARM IS ON.
--- NOTE | 2018-01-02 19:52 | NUR ---
PT CONTINUES TO TRY TO GET OUT OF BED, CLOCK MECHANIC IS IN ROOM WITH PT AT THIS TIME.
--- NOTE | 2018-01-02 20:41 | NUR ---
PT IS VERY RESTLESS. HE KEEPS TRYING TO GET HIS LEGS OUT OF BED. GOT ALL OF HIS VITALS EXCEPT BLOOD PRESSURE DUE TO THE FACT THAT HE WOULD NOT HOLD HIS ARM OR HIS BODY STILL. INFORMED HIS RN ERIKA. HE HAD A BIT OF DIAHRIA IN THE BED BETANCOURT. TRIED TO PUT AN ATTEND ON HIM BUT HE WOULDNT LEAVE IT ON. ASKED FOR A DRINK OF WATER SO I GAVE IT TO HIM. HE DID WELL DRINKING.
--- NOTE | 2018-01-02 22:53 | NUR ---
PT'S EVENING MEDICATIONS WERE GIVEN AND HE WAS ABLE TO SWALLOW THE LACTULOSE WITHOUT ANY PROBLEMS USING THE CUP. HE IS ABLE TO STATE HIS NAME BUT DOES NOT KNOW WHERE HE IS OR THE DATE. HE ATTEMPTS TO GET OUT OF BED AND REQUIRES CLOSE SUPERVISION. BED ALARM IS ON AND PT IS 1-1 AT THIS TIME.
--- NOTE | 2018-01-02 23:57 | NUR ---
PT IS AWAKE IN BED, ESE TEACHER IS IN ROOM WITH HIM. HE STATES HE HAS NO PAIN AT THIS TIME.
--- NOTE | 2018-01-03 00:26 | EKG ---
[facility] [address] [facility] [place] [address] Signed Sinus rhythm with premature atrial complexes Left bundle branch block Abnormal ECG When compared with ECG of 05-DEC-2017 08:53, premature atrial complexes are now present T wave inversion no longer evident in Inferior leads Confirmed by WILY CRUZ MD ([id number]) on 01/03/2018 12:26:38 AM Electronically Signed By: WILY CRUZ MD 01/03/18 0026 PATIENT NAME: ISMA DELGADILLO Electrocardiogram DATE OF : 45 PHYSICIAN: WILY CRUZ MD REPORT #: [id number] REPORT IS CONFIDENTIAL AND NOT TO BE RELEASED WITHOUT AUTHORIZATION
--- NOTE | 2018-01-03 02:09 | NUR ---
IN ROOM TO ADMINISTER LACTULOSE, PT HAS CONTINUED TO STAY AWAKE AND TRY TO GET OUT OF BED. PT IS STILL A 1-1 AT THIS TIME.
--- NOTE | 2018-01-03 02:41 | NUR ---
VITALS AND I&OS DONE AND CHARTED. HAS BEEN STILL VERY RESTLESS. HAS NOT SLEPT AT ALL TONIGHT. HAS HAS 3 LIQUID BM. AND THREE WET URINE ATTENDS. I AM STILL SITTING IN ROOM WITH HIM HE CONTINUES TO TRY TO GET OUT OF BED. EASILY REDIRECTED. GIVEN HIM SEVERAL WARM BLANKETS.
--- NOTE | 2018-01-03 03:33 | NUR ---
PT IS STILL AWAKE AND RESTLESS REQUIRING 1-1 ASSISTANCE TO KEEP O2 ON AND STAY IN BED.
--- NOTE | 2018-01-03 04:28 | NUR ---
PT IS REMOVING O2 AND REFUSING TO LEAVE IT ON, WILL CONTINUE TO REMIND PT TO WEAR O2.
--- NOTE | 2018-01-03 04:45 | NUR ---
SWITCHED PT'S O2 TO BLOWBY WITH THE MASK PT IS REFUSING TO KEEP O2 ON. PT CONTINUES TO NEED 1-1 SUPERVISION.
--- NOTE | 2018-01-03 06:11 | NUR ---
VITALS AND I&OS DONE AND CHARTED. VERY RESTLESS. NO SLEEP AT ALL THROUGH THE NIGHT. WONT KEEP OXY MASK ON. STILL TRYING TO GET OUT OF BED. CONSTANTLY REDIRECTING.
--- NOTE | 2018-01-03 08:06 | NUR ---
patient is still very disoriented, he is easily redirected he had a vinilla ensure for breakfast, he is unable to focus on something for more than a few seconds.
--- NOTE | 2018-01-03 09:40 | NUR ---
PATIENT WAS IN BED, NURSE CAME IN I TOLD HER HE WAS FIDGETING WITH HIS IV, SHE HAD TO PUT IN A NEW IV, NURSE GAVE HIM MEDICINE, IS IN HERE VISIING WITH PATIENT.
[2018-01-03] MEDS ORDERED: TRAZODONE HCL100 MG PO (09:48)
[2018-01-03] MEDS ORDERED: SUCRALFATE1 GM PO (09:48)
--- NOTE | 2018-01-03 10:41 | NUR ---
FULL BODY ASSESMENT DONE, CALL TO DR. CRUZ IN REGARDS TO # OF STOOLS. LASIX AND LACTULOSE DC'D FOR NOW. IV FLUIDS INITIATED PER ORDER. PATIENT EATING BITES OF BREAKFAST AND DRINKING WELL. SWALLOWED PILLS WELL. PATIENT APPEARS MORE ORIENTED, VERY ANXIOUS THRASHING IN BED. PATIENT UP TO BSC AND THEN TO RECLINER 2 PERSON ASSIST WITH OXANA.
--- NOTE | 2018-01-03 11:03 | NUR ---
DR. CRUZ IN ROOM TO ROUND, ORDER TO REPORT INPUT AND OUTPUT AT END OF DAY AND CONTINUE TO INFUSE IV FLUIDS THROUGHOUT DAY. PATIENT SITTING BACK IN RECLINER, APPEARS TO BE ANSWERING QUESTIONS, APPEARS CONFUSED TO SITUAION AND PERSON,BUT REDIRECTABLE. NOW SITTING UP EATING AND DRINKING. DISCUSSED PATIENT PAIN WITH LOWER BACK, NEW ORDER FOR LIDOCAINE PATCH.
--- NOTE | 2018-01-03 11:11 | NUR ---
ASSISED NURSE IN TRANSFERRING PATIENT OVER TO THE CHAIR VIA OXANA LIFT, HE IS CURRENTLY EATING THE REAST OF HIS BREAKFAST. HIS IS HERE VISITING STILL.
--- NOTE | 2018-01-03 12:33 | NUR ---
PATIENT SEEMS TO BE DOING BETTER WITH OXYGEN, NURSE AND I TRANSFERRED HIM 2P WITH A WALKER, AND HE DID WELL, I TRANSFERRED HIM ONE PERSON WITH A WALKER AND HE DID JUST WELL, HE WAS STABLE, HIS LEGS WEREN'T SHAKING AND HE SEEMED TO TOLERATE IT WELL.
--- NOTE | 2018-01-03 12:36 | NUR ---
[place] [facility] [place] 2 [place]. PATIENT STATES " I GOT THIS' STOOD STRONG AND ABLE TO TAKE DIRECTION. 1 PERSON ASSIST BACK TO RECLINER.
--- NOTE | 2018-01-03 12:56 | NUR ---
PATIENT HAS BEEN MORE ORIENTED HE USED THE BATHROOM WITH A ONE PERSON TRANSFER WITH A WALKER, I CLEANED HIM UP WITH BED BATH WIPES AND HE IS CURRENTLY RESTING IN THE CHAIR IN HIS ROOM.
--- NOTE | 2018-01-03 16:41 | NUR ---
JUD WENT ON WALK WITH ME AND THE NURSE, HE DID WELL WE WALKED A LAP, HE HAS BEEN TALKING A BIT MORE AND MAKING A LITTLE MORE SENSE, HE HAS BEEN USING THE RESTROOM AND WALKING BACK AND FORTH WITH HIS WALKER. HE JUST ENJOYED A LITTLE ICE CREAM AND WE ARE WAITING FOR DINNER NOW.
--- NOTE | 2018-01-03 18:40 | NUR ---
PATIENT COGNITIVELY IMPROVED THROUGHOUT DAY, NOW TAKING DIRECTION BETTER AND ABLE TO FOLLOW COMMANDS. REMAINS COMPULSIVE AND NEEDS CONSTANT REMINDERS TO NOT GET UP ALONE, IMPULSIVE. SITTER IN ROOM THROUGHOUT DAY PROVIDING 1:1. PATIENT AMBULATED IN HALLS, WITH STBY AND ANOTHER PERSON PUSHING WHEELCHAIR BEHIND HIM WITH IV POLE AND OXYGEN. MUST KEEP OXYGEN ON, PATIENT DESATS IN INTO LOW 80S AND SYMPTOMATIC OF HYPOXIA. FOAM TAPE TO CHEEKS APPEARS TO HELP KEEP IN PLACE. PATIENT EATING WELL. URINE OUTPUT ADEQUATE, IV FLUIDS INFUSING 100 ML HOUR D5LR. SALINE LOCK WHEN BAG COMPLETE. URINE DARK, ENCOURAGE FLUIDS. NO LACTULOSE OR LASIX THROUGHOUT DAY.
--- NOTE | 2018-01-03 19:00 | NUR ---
receieved bedside report from [facility]. pt up in chair. 2l o2 nc in [address]. d5lr infusing @ 100ml/hr. pt is alert. disoriented to time. able to say he is at a hospital but unable to tell which hospital. respirations are equal and nonlabored. pt requested to call his . on phone with her at the moment. pt is 1:1 at this time.
--- NOTE | 2018-01-03 21:36 | NUR ---
ASSISTED PT UP TO BATHROOM WITH SBA ABN FWW. BACK TO BED. PT IS FORGETFUL. UNABLE TO REMEBER CALL LIGHT. 1:1 AT THIS TIME. BED ALARM IN PLACE. 2L NC O2 ON. FLUIDS INFUSING. PT WAS ABLE TO REQUEST SOME ICE CREAM. AWARE HE IS AT THE HOSPITAL JUST UNAWARE OF WHICH ONE. ASSESSMENT COMPLETED. LUNGS ARE CLREA AND DIM IN RLL. MURMUR HEART WHEN HEART TONES ASCULTATED. TRACE EDEMA NOTED CARIDAD BAIRD. BOWEL TONES ACTIVE. A/O TO SELF.
--- NOTE | 2018-01-03 21:51 | NUR ---
PT TO BED AT THIS TIME. 2 SIDE RAILS UP, BED ALARM IN PLACE.PT APPEARS TO BE COMFORTABLE., ABLE TO FOLLOW COMMANDS. LIGHTS OFF AND PT EYES CLOSED. CALL LIGHT WITHIN REACH. VISIBLE FROM NURSING STATION. HOB ELEVATED FOR PT COMFORT. PT ABLE TO VOICE NEEDS. REPORTS NO NEEDS AT THIS TIME.
--- NOTE | 2018-01-03 23:44 | NUR ---
HELPED PT TO THE BATHROOM AND BACK TO BED WITH FWW. BEDSIDE TABLE AND CALL LIGHT WITHIN REACH. PT NEEDS NOTHING ELSE AT THIS TIME. BED ALARM ON.
--- NOTE | 2018-01-04 01:41 | NUR ---
PT IS AWAKE IN ROOM WITH BEDALARM IN PLACE. PT IS MOANING AND RESTLESS. WHEN ASKED IF HE IS HAVING PAIN OR UNCOMFORTABLE PT REORTS HE IS NOT SOMETIMES AND HE IS OTHER TIMES. PT IS VISIBLE FROM [facility] [place] STATION. 2L NC IN PLACE. PT KEEPS REMOVING O2. FREQUENT CHECKS ON PT.
--- NOTE | 2018-01-04 01:53 | NUR ---
BED ALARM ALERTED STAFF TO PT ATTEMPTING TO EXIT BED WITHOUT ASSISTANCE. PT REPORTED HE HAD TO USE THE RESTROOM. ASSISTED TO TO BATHROOM.
--- NOTE | 2018-01-04 01:58 | NUR ---
HELPED PT TO THE BATHROOM AND BACK TO BED WITH HIS FWW. BEDSIDE TABLE AND CALL LIGHT WITHIN REACH. BED ALARM SET.
--- NOTE | 2018-01-04 02:00 | NUR ---
GOT PT A WARM BLANKET. HE SAYS HE IS COLD.
--- NOTE | 2018-01-04 03:42 | NUR ---
WENT IN AND PUT PTS GOWN BACK ON HIM AND COVERED HIM BACK UP WITH BLANKETS.
--- NOTE | 2018-01-04 03:45 | NUR ---
HELPED PT TO THE BATHROOM AND BACK TO BED WITH HIS FWW. BEDSIDE TABLE AND CALL LIGHT WITHIN REACH.
--- NOTE | 2018-01-04 03:50 | NUR ---
RECIEVED PT TO THE FLOOR VIA STRETCHER. PT REOPPRTS PAIN OF 6/10 DILAUDID AND TORIDOL GIVEN. CBI IN PLACE. DRAINING BRIGHT RED OUTPUT. NS STARTED AT 125ML/HR. CALL LIGHT WITHIN REACH. ASSESSMENT COMPLETED. CLEAR LUNGS. CMS INTACT. HEART TONES NORMAL. NO EDEMA NOTED. PULSE +2 X4. BOWEL TONES ACTIVE X4. PT IS A/O X4.
--- NOTE | 2018-01-04 05:03 | NUR ---
PT AWAKE IN BED MOANING, TAKING CLOTHS AND OXYGEN OF. NEEDS REORIENTED FREQUENTELY. PT IS STILL CONFUSED AND UNALBE TO REST AT THIS TIME. NOVEMBER BRAND COMMUNICATIONS MANAGER AT BEDSIDE. BED ALARM IN PLACE. SIDE RAILS UP X3. PT IS SL AFTER 1L FLUID INFUSED.
--- NOTE | 2018-01-04 06:06 | NUR ---
PT TRIED TO GET OUT OF BED WITHOUT ASSISTANCE. HELPED HIM TO THE RESTROOM AND BACK TO BED. PT DENIES NEEDS AT THIS TIME.
--- NOTE | 2018-01-04 06:49 | NUR ---
PT AWAKE AND ASLEEP THROUGHOUT THE NIGHT. DISORIENTED TO DATE AND PLACE. RESTLESS. BED ALARM IN PLACE. SBA WITH FWW. PT IS IN GOOD SPIRIT THOUGH. 2L NC IN PLACE. PT KEEPS TRYING TO REMOVE IT. ASPECREAM ORDERED FOR LEFT SIDE.
--- NOTE | 2018-01-04 08:25 | NUR ---
MORNING ASSESSMENT AND MEDICATIONS DUE. THIS RN TO BEDSIDE. PT UP TO CHAIR EATING BREAKFAST. PT STATE HIS PAIN IN LEFT AXILLA IS "MUCH BETTER" PT ASKED IF HE WOULD LIKE ASPERCREME AND PT STATES "YES." PT DISORITED TO TIME, REPORTING THAT HE NEEDS TO "GET READY TO GO OUT WITH MY , SHE WILL LEAVE WITHOUT ME IF I'M NOT READY." PT REORIETED. PT STATE HE WANTS TO TALKE TO "DR. OSMAN." PT REMINEDED THAT HE IS IN THE HOSPITAL IN [place] AND DR. CRUZ WILL BE BY TO TALK WITH HIM LATER TODAY. PT SATES "THATS JUST FINE." ASSESSMENT DONE. MEDICATIONS GIVEN (SEE MAR). PT FINSHED WITH BREAKFAST. CHAIR ALARM ON. CALL LIGHT WITHIN REACH.
--- NOTE | 2018-01-04 09:27 | NUR ---
THIS COMMUTATOR OPERATOR ASSISTED PATIENT FROM THE BED TO THE CHAIR PRIOR TO BREAKFAST. PATIENT ATE BREAKFAST WELL. PATIENT ASSISTED TO RESTROOM. 1 PERSON SBA WITH FWW. PATIENT SITTING UP IN CHAIR NOW. CHAIR ALARM ON. FRESH ICE WATER. CALL LIGHT WITHIN REACH. NO OTHER NEEDS AT THIS TIME.
--- NOTE | 2018-01-04 10:27 | NUR ---
THIS BUSINESS LINE MANAGER AMBULATED WITH PATIENT IN THE HALLS. PATIENT NOW SITTING UP IN CHAIR IN ROOM. CALL LIGHT WITHIN REACH. CHAIR ALARM ON. PATIENTS IN ROOM. NO OTHER NEEDS AT THIS TIME.
[2018-01-04] MEDS ORDERED: FUROSEMIDE20 MG PO (11:21)
[2018-01-04] MEDS ORDERED: LASIX40 MG PO (11:22)
[2018-01-04] MEDS ORDERED: XIFAXAN550 MG PO (11:24)
--- NOTE | 2018-01-04 11:25 | NUR ---
Medications reconciled by pharmacist using pharmacy records and interview with . Although [facility] for Rifaximin, due to insurance issues, RX was not able to be filled after discharge in October, therefore, he has not been taking it. Also, per , recently patient began refusing lactulose.
[2018-01-04] MEDS ORDERED: FEROSUL325 MG PO (11:28)
[2018-01-04] MEDS ORDERED: VITAMIN C500 M1 PO (11:28)
--- NOTE | 2018-01-04 12:31 | NUR ---
AFTERNOON ASSESSMENT DUE. THIS RN TO BEDSIDE. PT AND FAMILY TALKING WITH MD ABOUT PLAN OF CARE, POLST AND HOSPICE. ASSESSMENT DONE. PT FORGETFUL AND OCCATIONALLY DISORITEND TO EVENTS/PLACE WHILE TALKING WITH MD. FAMILY AT BEDSIDE. CALL LIGHT WITHIN REACH.
--- NOTE | 2018-01-04 13:01 | NUR ---
THIS TURNER MACHINE OPERATOR ASSISTED PATIENT UP TO BATHROOM, BACK TO BEDSIDE RECLINER. PATIENT IS EXIT SEEKING, AND APPEARS SLIGHTLY CONFUSED AND DISORIENTED. PATIENT APPEARS AGITATED AND JITTERY. PATIENT KEEPS HOLDING HEAD AND GROANING. RN NOTIFIED. CHAIR ALARM ON. CALL LIGHT IN REACH, NO OTHER NEEDS AT THIS TIME.
--- NOTE | 2018-01-04 13:07 | NUR ---
MEDICATIONS DUE. THIS RN TO BEDSIDE. PT APPEARS AGITATED, ROCKING IN CHAIR, MOANING. PT ASKED IF HE IS HAVING PAIN. PT STATES "NO, NOTHING HURTS." MEDICATIONS GIVEN ORDERED. PT STATES "I JUST NEED TO GO HOME." PT OFFERED THE CHANCE TO GO FOR A WHEEL CHAIR RIDE AROUDN THE UNIT. PT DECLINES. CHARGE NURSE NOTIFIED OF PTS AGITATION. MEDICATIONS GIVEN ORDERED. CALL LIGHT WITHIN REACH. FAMILY AT CHAIRSIDE.
--- NOTE | 2018-01-04 14:45 | NUR ---
MEDICATIONS DUE. THIS RN TO BEDSIDE. PT CONTINUES TO APPEAR AGITATED. TRANSFER TABLE OPERATOR AT BEDSIDE WITH PT ASSISTING PT BACK TO BED AFTER A WHEELCHAIR RIDE AROUND THE UNIT. PT TO RESTROOM AND THEN BACK TO BED. MEDICATIONS GIVEN ORDERED. PT EATING PUDDING. TRANSFER TABLE OPERATOR REMAINS AT BEDSIDE. BED RAILS UP. CALL LIGHT WITHIN REACH. BED ALARM ON.
--- NOTE | 2018-01-04 14:54 | NUR ---
PATIENT SEEMS VERY AGITATED AND IS EXIT SEEKING. THIS EXAMINATION SCORER TOOK PATIENT FOR A RIDE IN THE WHEELCHAIR AROUND THE HALLWAYS. SEEMED TO RELAX PATIENT SOME. PATIENT ASSISTED TO RESTROOM AND THEN BACK TO BED. PATIENT SITTING UP WATCHING TV AND EATING PUDDING. CALL LIGHT WITHIN REACH. FRESH ICE WATER. BED ALARM ON. NO OTHER NEEDS AT THIS TIME.
--- NOTE | 2018-01-04 16:24 | NUR ---
PATIENT SEEMS VERY DISORIENTED. PATIENT SEEMS TO BE FALLING ASLEEP WHILE TRYING TO TRANSFER TO THE BATHROOM. USED BEDSIDE COMMODE TO LIMIT WALKING. PATIENT NOW RESTING IN BED. CALL LIGHT WITHIN REACH. NO OTHER NEEDS AT THIS TIME.
--- NOTE | 2018-01-04 16:39 | NUR ---
TALKED WITH PT ABOUT THE FACT THAT HOSPICE HAD SAID THAT IF SHE HAD STAIN APPLICATOR HELP AT HOME OR HE WERE IN A FACILITY--[facility]- THEY WOULD BE GLAD TO TAKE HIM ON A HOSPICE PT. STATED THAT SHE DOESN'T FEEL THEY CAN AFFORD THAT AND SHE DIDN'T KNOW WHAT TO DO ABOUT IT. I GAVE HER THE PHONE # TO [facility] SO SHE COULD AT LEAST START THE PROCESS OF SIGNING HIM UP FOR MEDICAID. SHE SAID SHE WOULD CALL.
--- NOTE | 2018-01-04 17:23 | NUR ---
AFTERNOON ASSESSMENT DUE. THIS RN TO BEDSIDE. CRYPTOLOGIC SUPPORT SPECIALIST PRESENT FOR 1 ON OBSERVATION. PT VERY RESTLESS. PT MOANING. PT ASKED IF HE HAS PAIN. PT STATES "YES" WHEN ASKED WHERE PT STATES "MY WHOLE BODY." BLADDER SCAN DONE PER MD ORDER, 0ML FOUND BY CRYPTOLOGIC SUPPORT SPECIALIST, CHECK BY 2 RNS. MD AWARE OF CHANGE IN STATUS. PT WILL NOT KEEP O2 BY NC IN PLACE. PT PLACED ON 10L O2 BB O2 HELD IN PLACE BY CRYPTOLOGIC SUPPORT SPECIALIST. ASSESSMENT DONE. BED RAILS UP. CALL LIGHT WITHIN REACH.
--- NOTE | 2018-01-04 18:39 | NUR ---
PT HERE FOR ENCEPHALOPATHY. 1 PERSON STAND BY ASSIST. CARDIAC DIET. PT DECLINED TODAY AND NEEDS 1:1 PERSONEL. CAN AT BEDSIDE. HOSPICE CONSULT TODAY. BLOW BY O2 WHEN PT IS AGITATED AND REFUSES TO WEAR NC. BED ALARM/CHAIR ALARM IF PT BCOMES SAFE TO SIT/SLEEP ALONE. PT DOES NOT USE CALL LIGHT. AT THIS TIME PT IS DISORIENTED TO ALL AND RESTLESS OFF AND ON. LIDOCANE PATCH AND ASPARCREME FOR POSSIBLE PAIN.
--- NOTE | 2018-01-04 19:00 | NUR ---
REPORT RECEIVED FROM DAY SHIFT NURSE. PATIENT RESTING IN BED WITH EYES CLOSED. SITTER IN THE ROOM WITH PATIENT. CALL LIGHT WITHIN REACH.
--- NOTE | 2018-01-04 20:30 | NUR ---
PATIENT 1PA WITH FWW TO THE RESTROOM. PATIENT ASSISTED TO THE RECLINER. PATIENT AWAKE AND LESS DROWSY, DINNER PROVIDED. PATIENT ATE 75% OF MEAL. VITALS AND I&Os RECOREDED. LIDOCAINE PATCH REMOVED. PATIENT DISORIENTED TO PLACE AND TIME, ORIENTED TO SELF. RE-ORIENTED TO PLACE AND TIME. CHAIR ALARM ON. PATIENT 99 ON 2L OF OXYGEN VIA NC. PATIENT ABLE TO HAVE LARGE BM. SITTER IN ROOM, 1:1. 2100 MEDICAITONS GIVEN PER ORDER. ASSESSMENT COMPLETED. PATIENT CALLED THIS EVENING WITH ASSISTANCE. PATIENT IS UNABLE TO RATE PAIN BUT STATES IT IS ALL OVER. PATIENT DENIES THE NEED FOR PRN PAIN MEDICATION AT THIS TIME. WILL CONTINUE TO MONITOR. PATIENT DENIES ANY OTHER NEEDS AT THIS TIME. CALL LIGHT WITHIN REACH.
--- NOTE | 2018-01-04 23:10 | NUR ---
PATIENT RESTING IN BED WITH EYES CLOSED. BREATHING EVEN AND UNLABORED. BED ALARM ON. SITTER, 1:1. CALL LIGHT WITHIN REACH.
--- NOTE | 2018-01-05 00:41 | NUR ---
@1900 one one WITH PATIENT. PATIENT IS RESTLESS. TRIED TO GET OUT FROM BED. GOT HELP CHIQUITA SANTOS TO TAKE PATIENT TO BATHROOM AND UP IN THE CHAIR. CHIQUITA SANTOS WAS WITH PATIENT.
--- NOTE | 2018-01-05 01:15 | NUR ---
PATIENT APPEARS RESTLESS IN BED. PATIENT CANNOT RATE PAIN WHEN ASKED. PATIENT APPEARS TO HAVE AWAKE PERIODS. ASSESSMENT COMPLETED. SITTER AT BEDSIDE, 1:1. SNORING NOTED. BREATHING EVEN AND UNLABORED, RR 20. CALL LIGHT WITHIN REACH. BED ALARM ON. PATIENT REFUSING NC, BLOW BY 10L PLACED IN FRONT OF PATIENT. WILL CONTINUE TO MONITOR.
--- NOTE | 2018-01-05 05:00 | NUR ---
PATIENT RESTING IN BED. 2L OF OXYGEN VIA NC. PATIENT DISORIENTED TO PLACE AND TIME, OREIENTED TO SELF. PATIENT DENIES PAIN. SITTER AT BEDSIDE. VITALS AND I&Os RECORDED. ASSESSMENT COMPLETED. BED ALARM ON. PATIENT DENIES ANY NEEDS AT THIS TIME. CALL LIGHT WITHIN REACH.
--- NOTE | 2018-01-05 05:03 | NUR ---
PATIENT RESTED ON AND OFF THROUGHOUT NIGHT, APPEARED RESTLESS. PATIENT CONFUSED AND DISORIENTED TO PLACE AND TIME. PATIENT RE-ORIENTED MULTIPLE TIMES THROUGHOUT SHIFT. 1PA WITH FWW WHEN AMBULATING. CARDIAC DIET. 2L OF OXYGEN VIA NC, CHRONIC. PATIENTS IV SL. BED ALARM, SITTER, AND 1:1. PATIENT ATE 75% OF DINNER, TOLERATED WELL. PATIENT DROWSY AT TIMES. PATIENT UNABLE TO RATE PAIN. LAST BM ON 01/04/18.
--- NOTE | 2018-01-05 08:10 | NUR ---
MORNING ASSESSMENT DUE. THIS RN TO BEDSIDE. PT UP TO CHAIR EATING BREAKFAST. PT ORIENTED TO SELF AND KNOWS HE NEEDS LACTULOSE. PT FORGETFUL AND CONFUSED AT TIMES ASKING THE SAME QUESTIONS. PT ABLE TO REPEAT BACK THAT HIS WILL BE COMING LATER TODAY. PT DENIES PAIN AND NAUSEA. ASSESSMENT DONE. STUDENT RN TO GIVE MEDICATIONS WITH INSTRUCTOR. O2 AT 2L NC IN PLACE. PT CONTINUES WATCHING TV AND EATING BREAKFAST. CHAIR ALARM IN PLACE. CALL LIGHT WITHIN REACH. PT STATES HE HAS NO REQUESTS OR COMPLAINTS AT THIS TIME.
--- NOTE | 2018-01-05 08:57 | NUR ---
PATIENT SITTING UP IN CHAIR. TECHNICAL SUPERVISORRenetta QUIGLEY IS 1:1 WITH PATIENT.
[2018-01-05] MEDS ORDERED: FEROSUL325 MG PO (11:10)
[2018-01-05] MEDS ORDERED: SPIRONOLACTONE25 MG PO (11:10)
[2018-01-05] MEDS ORDERED: TRAZODONE HCL100 MG PO (11:10)
[2018-01-05] MEDS ORDERED: CONSTULOSE10 GM/15 M PO (11:11)
[2018-01-05] MEDS ORDERED: LASIX40 MG PO (11:12)
--- NOTE | 2018-01-05 12:00 | NUR ---
DISCHARE INSTRUCTIONS REVIWED WITH PT AND . USER ACCEPTANCE TESTER AT BEDSIDE. PT VERBALIZES UNDERSTANDING OF HIS FOLLOW UP APPOINTMENT AND THAT "I NEED TO TAKE MY MEDICINES AT HOME." PTS VERBALIZES UNDERSTANDING OF ALL INSTRUCTIONS AND STATES ALL HER QUESTIONS HAVE BEEN ANSWERED. PIV REMOVED BY STUDENT PROFESSOR OF BUSINESS'S. PT CHANGED INTO HIS OWN CLOTHS.CALL LIGHT WITHIN REACH.
--- NOTE | 2018-01-05 12:26 | NUR ---
THIS RN TO BEDSIDE TO TAKE VITAL SIGNS BEFORE DISCHARGE. PT PUTTING ON HIS OWN SHOES. PHARMACY AT BEDSIDE FOR DISCHARGE MEDICATION INSTRUCTIONS. VERBALIZES UNDERSTANDING OF ALL INSTRUCTIONS AND STATES HER QUESTIONS HAVE BEEN ANSWERED. PT TRASFERES SELF TO WHEELCHAIR. PT AND STATE THAT PTS HOME OXYGEN TAKEN "IS AT HOME OR IN THE CAR AND WE JUST WANT TO GO PICK IT UP." PT WHEELED FROM UNIT.
--- NOTE | 2018-01-05 12:30 | NUR ---
HOME OXYGEN TANK AQUIRED FOR PT TO TRAVEL WITH O2 HE GOES HOME. PT AND FAMILY VERBALIZES CARE OF OXYGEN TANK AND SAFETY FOR HOME OXYGEN USE. TANK PROVIDED FOR PT. PT WHEELED FROM CLINIC WITH STUDENT RN AND SENIOR C SOFTWARE ENGINEER.
--- NOTE | 2018-01-05 12:32 | NUR ---
PT INVITED ME IN-SPOUSE IN WITH PT. SHE IMMEDIATELY BEGAN TO VISIT WITH ME ABOUT HOW TO CARE FOR PT. DR CRUZ HAS STATED THAT PT NEEDS 24 HR CARE. STRUGGLING WITH HOW TO PROVIDE THIS. DISCUSSED SOME OPTIONS, HAD PRAYER WITH BOTH. WILL FOLLOW NEEDED
== END 2018-01-05 12:35 | disposition home or self-care (01) | DRG 72 ==
LOC: ED 14:49 → MS 17:46
PROVIDERS: ADMIT Internal Medicine
DX: G93.41 Metabolic encephalopathy (principal); F51.04 Psychophysiologic insomnia; K72.90 Hepatic failure, unspecified without coma; D69.6 Thrombocytopenia, unspecified; K21.9 Gastro-esophageal reflux disease without esophagitis; G47.33 Obstructive sleep apnea (adult) (pediatric); G25.81 Restless legs syndrome; K74.60 Unspecified cirrhosis of liver; I50.9 Heart failure, unspecified; I35.0 Nonrheumatic aortic (valve) stenosis
CPT/HCPCS: 36415; 36600; 71045; 80053; 81001; 82140; 82607; 82728; 82746; 82803; 83540; 83735; 83880; 84466; 84484; 85025; 93005; 93010; J7030; J7120